=== PATIENT | male | born 1980 | race Caucasian/White ===

== ENCOUNTER 2018-08-10 18:02 | Inpatient (IN) | payer OTHER ==
[2018-08-10] MEDS ORDERED: Aspirin 325 mg Enteric Coated Tablet PO SCH (19:00)
[2018-08-10] MEDS ORDERED: Communication Order-Pharmacy FS SCH (19:00)
[2018-08-10] MEDS ORDERED: Potassium Chloride 20 MEQ TAB PO SCH (19:15)
--- NOTE | 2018-08-10 20:12 | PDOC.PN ---
- Subjective Encounter Start Date: 08/10/18 Encounter Start Time: 20:07 Patient was lying in bed with family earlier, he reported feeling better and back to his baseline. Workup was unremarkable and he had no events over night. EEG and MRI normal, he was given a prescription for increased dose of atorvastatin and clonidine for better BP control and he was discharged home to get a follow up echo as outpatient as this was ordered on admission, but not completed. Prior to being discharged he was able to get an echo before he left. Ultimately, his echo was abnormal and Dr Acosta recommended patient be readmitted for further management. - Objective MAR Reviewed: Yes Vital Signs & Weight: Vital Signs (12 hours) Temp Pulse Resp BP Pulse Ox 08/10/18 19:18 98.5 F 75 12 192/106 H 96 Radiology Reviewed by me: Yes Phys Exam - Physical Examination Constitutional: NAD HEENT: moist MMs, oral pharynx no lesions Neck: no nodes, full ROM Respiratory: no wheezing, clear to auscultation bilateral Cardiovascular: RRR, no significant murmur Gastrointestinal: soft, positive bowel sounds Musculoskeletal: no edema, pulses present Neurological: non-focal, moves all 4 limbs Lymphatic: no nodes Psychiatric: normal affect, A&O x 3 Skin: cap refill <2 seconds Dx/Plan (1) Systolic dysfunction Code(s): I51.9 - HEART DISEASE, UNSPECIFIED Status: Acute (2) Syncope Code(s): R55 - SYNCOPE AND COLLAPSE Status: Acute (3) HTN (hypertension) Code(s): I10 - ESSENTIAL (PRIMARY) HYPERTENSION Status: Acute (4) HLD (hyperlipidemia) Code(s): E78.5 - HYPERLIPIDEMIA, UNSPECIFIED Status: Acute (5) DM type 2 (diabetes mellitus, type 2) Status: Acute - Plan cont current plan of care, plan discussed w/ family, DVT proph w/lovenox * Patient discharged, but called back to be readmitted due to echo results. Please see recent visit for H&P, ECHO and other diagnostic imaging * Echo showed reduced EF, Dr acosta recommended heart cath planned for 08/11 * Monitor BP and other vitals, continue current regimen and add PRN antihypertensives * Dr Acosta, Cardiology consulted and appreciate recommendations * Monitor Accucheks and continue on sliding scale * Transition to inpatient
[2018-08-10] MEDS ORDERED: cloNIDine 0.1 MG TAB PO PRN (20:14)
[2018-08-10] MEDS ORDERED: Dextrose 50% Abboject 50 ML SYRINGE SLOW IVP PRN (20:16)
[2018-08-10] MEDS ORDERED: Dextrose 5% in Water 1,000 ML IV PRN (20:16)
[2018-08-10] MEDS ORDERED: Labetalol HCl 100 MG/20 ML VIAL SLOW IVP PRN (20:17)
[2018-08-10] MEDS ORDERED: hydrALAZINE 20 MG/ML VIAL SLOW IVP PRN (20:17)
[2018-08-10] MEDS ORDERED: Ondansetron PF 4 MG/2 ML Vial IVP PRN (20:20)
[2018-08-10] MEDS ORDERED: Acetaminophen 325 MG TAB PO PRN (20:20)
[2018-08-10] MEDS ORDERED: Ondansetron ODT 4 MG TAB PO PRN (20:20)
[2018-08-10] MEDS ORDERED: Atorvastatin Calcium 40 MG TAB PO SCH ×2 (21:00)
[2018-08-10] MEDS: Losartan 25 MG TAB PO SCH (21:21)
[2018-08-10] MEDS: HumaLOG 300 UNITS/3 ML VIAL SC PRN (21:24)
[2018-08-11 00:17] VITALS: BMI 33.0
--- NOTE | 2018-08-11 01:32 | CON ---
DATE OF CONSULTATION: 08/10/2018 REASON FOR CONSULTATION: Abnormal echocardiogram, syncope. HISTORY OF PRESENT ILLNESS: Mr. Rose is a 38-year-old man. He was at work yesterday. He was talking with a co-worker. He is leaning up against a wall with one hand. He felt totally fine, that is the last thing he remembers. Does not remember feeling lightheaded or dizzy at all. He lost consciousness. An ambulance was called and the patient regained consciousness in the ambulance. The patient states he has never had an episode like that before. He has been having some chest pain and some left lateral pain and some pain in the right side of his chest, nothing typical of angina. Also feels occasional pressure in his chest, but does not really sound typical of angina. The patient has had type 2 diabetes for about 10 years. He smokes, he is back from several packs a day down to half pack a day. He has history of hypercholesterolemia. History of hypertension. Family history of heart disease as well. MEDICATIONS: At home, 1. He is taking atorvastatin apparently 20 mg a day. 2. He is taking losartan 100 mg a day. 3. He is taking medication for diabetes, Victoza. 4. Metformin. 5. Previously was on lisinopril-hydrochlorothiazide. SOCIAL HISTORY: As mentioned, he is down to smoking half pack of cigarettes a day. FAMILY HISTORY: Mother had stenting and then coronary artery disease. REVIEW OF SYSTEMS: CONSTITUTIONAL: No significant weight gain or loss. VISION: No changes. HEARING: No changes. PULMONARY: No cough or wheezing. GASTROINTESTINAL: No nausea, vomiting, or diarrhea. SKIN: No rashes. NEUROLOGIC: No unilateral weakness or numbness. PSYCHIATRIC: No unusual depression or anxiety. PHYSICAL EXAMINATION: GENERAL: This is a large built gentleman. The weights are not currently in the chart. He is alert and oriented. No complaints. HEENT: Eyes, sclerae are nonicteric. Mouth, mucous membranes moist. NECK: Supple. No lymphadenopathy. LUNGS: Clear. No wheezing, rales, or rhonchi. CARDIAC: Normal S1, normal S2. There is no murmur, rub, or gallop. ABDOMEN: Obese and nontender. No hepatosplenomegaly. EXTREMITIES: Warm and dry. No clubbing or cyanosis. No edema. He has good dorsalis pedis pulses bilaterally. LABORATORY DATA AND DIAGNOSTIC STUDIES: Recent laboratory; his most recent potassium is 3.4. The LDL cholesterol could not be calculated, but the total cholesterol is 227, triglycerides 456 even on statins. Echocardiogram showed an ejection fraction 25% to 30% with moderate global left ventricular hypertrophy, mildly dilated left ventricle. ASSESSMENT: 1. Syncopal episode, very suspicious for an arrhythmia. 2. Depressed left ventricular function with ejection fraction 25% to 30%. 3. Diabetes. 4. Hypertension. 5. I strongly suspect the dysrhythmia causes syncopal episode. Also, strong risk factors for coronary artery disease. Also, he has very high cholesterol even on statin, probably has familial hypercholesterolemia. PLAN: 1. Aspirin. 2. Continue angiotensin receptor sarina. 3. Increase statins. 4. Proceed to cardiac catheterization tomorrow. Discussed risks of stroke, heart attack, iodine allergy, interfering with blood supply to leg or kidney, stent thrombosis, stent restenosis. He understands and wishes to proceed. 5. Will need electrophysiologic consultation and may need a LifeVest. 6. 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 Job ID: [id number]
[2018-08-11 05:33] LABS: #Basophils 0.1 thou/uL (0.0-0.2); #Eosinphils 0.3 thou/uL (0.0-0.7); #Lymphocytes 3.2 thou/uL (1.20-3.40); #Monocytes 0.7 thou/uL (0.11-0.59); #Neutrophils 3.9 thou/uL (1.40-6.50); %Eosinophils 3.2 % (0.0-10.0); %Lymphocytes 39.3 % (21.0-51.0); %Monocytes 8.7 % (0.0-10.0); %Neutrophils 47.8 % (42.0-75.0); Hemoglobin 16.1 g/dL (14.0-18.0); Mean Corpuscular HGB CONC 33.7 g/dL (32.0-36.0); Mean Corpuscular Hemoglobin 29.4 pg (27.0-31.0); Mean Corpuscular Volume 87.4 fL (78.0-98.0); Mean Platelet Volume 8.7 fL (7.4-10.4); Platelet Count 206 thou/uL (130-400); RBC Distribution Width 11.9 % (11.5-14.5); Red Blood Cell (RBC) Count 5.49 mill/uL (4.70-6.10); White Blood Cell (WBC) Count 8.1 thou/uL (4.8-10.8)
[2018-08-11 05:50] LABS: Anion Gap 12 mmol/L (10-20); BUN (Urea Nitrogen) 12 mg/dL (8.9-20.6); Calc. Creatinine Clearance 194 mL/min (70-130); Calcium 9.4 mg/dL (7.8-10.44); Carbon Dioxide 28 mmol/L (22-29); Chloride 101 mmol/L (98-107); Estimated GFR-MDRD Greater than 90; Glucose 268 mg/dL (70-105); Potassium 3.4 mmol/L (3.5-5.1); Sodium 138 mmol/L (136-145)
[2018-08-11] MEDS: Amlodipine 10 MG TAB PO SCH (05:53)
[2018-08-11] MEDS: Aspirin 325 mg Enteric Coated Tablet PO SCH (05:54)
[2018-08-11] MEDS ORDERED: Diazepam 5 MG TAB PO SCH (06:00)
[2018-08-11] MEDS: HumaLOG 300 UNITS/3 ML VIAL SC PRN ×4 (06:06→20:52)
[2018-08-11] MEDS ORDERED: Lidocaine 1% (PF) 30 ML VIAL ONE (06:45)
[2018-08-11] MEDS ORDERED: Midazolam HCl 2 mg/2 ml Vial ONE (07:18)
[2018-08-11] MEDS ORDERED: Fentanyl 100 MCG/2 ML VIAL ONE (07:18)
[2018-08-11] MEDS ORDERED: Metoprolol Tartrate 5 MG/5 ML VIAL ONE ×3 (07:33→07:53)
[2018-08-11] MEDS ORDERED: Nitroglycerin 100MG/250ML BOT 250 ML ONE (07:39)
[2018-08-11] MEDS ORDERED: Carvedilol 6.25 MG TAB PO SCH ×4 (08:00→17:00)
[2018-08-11] MEDS ORDERED: hydrALAZINE 20 MG/ML VIAL ONE ×2 (08:03→08:20)
[2018-08-11] MEDS ORDERED: Acetaminophen/Codeine 30-300mg Tablet PO PRN ×2 (08:11)
[2018-08-11] MEDS ORDERED: Sodium Chloride 0.9% 200 ML IV PRN (08:11)
[2018-08-11] MEDS ORDERED: Nitroglycerin 0.4 MG TAB (25 Tab Bottle) SL PRN (08:11)
[2018-08-11] MEDS ORDERED: Enoxaparin Sodium 40 MG/0.4 ML SYRINGE SC SCH (09:00)
[2018-08-11] MEDS ORDERED: Losartan 25 MG TAB PO SCH (09:00)
--- NOTE | 2018-08-11 11:40 | PDOC.PN ---
- Subjective Encounter Start Date: 08/11/18 Encounter Start Time: 11:38 Mr. Rose was seen today in follow-up of syncopal episode. He does not complain of chest pain or dyspnea. He is tired of laying on his back ( he is post cath). - Objective Resuscitation Status - Order Detail: 08/10/18 20:20 Resuscitation Status Routine Co-Sign Provider: Resuscitation Status: FULL: Full Resuscitation MAR Reviewed: Yes Vital Signs & Weight: Vital Signs (12 hours) Temp Pulse Resp BP BP Pulse Ox 08/11/18 09:19 153/82 H 08/11/18 09:18 96 08/11/18 05:53 79 185/98 H 08/11/18 04:12 98.3 F 80 16 172/95 H 96 08/11/18 03:10 77 181/96 H 08/11/18 00:15 192/104 H 08/10/18 23:46 98.4 F 82 16 192/104 H 98 Weight Weight 237 lb 3.2 oz Result Diagrams: 08/11/18 05:12 08/11/18 05:12 Additional Labs: Accuchecks 08/11/18 08/11/18 08/10/18 10:45 06:06 20:45 POC Glucose 258 H 265 H 329 H Phys Exam - Physical Examination HEENT: PERRLA Respiratory: no wheezing, no rales, no rhonchi, clear to auscultation bilateral Cardiovascular: RRR, no significant murmur, no rub Gastrointestinal: soft, non-tender, no distention, positive bowel sounds Musculoskeletal: no edema, pulses present Dx/Plan (1) Systolic dysfunction Code(s): I51.9 - HEART DISEASE, UNSPECIFIED Status: Acute (2) DM type 2 (diabetes mellitus, type 2) Status: Chronic (3) HLD (hyperlipidemia) Code(s): E78.5 - HYPERLIPIDEMIA, UNSPECIFIED Status: Chronic (4) HTN (hypertension) Code(s): I10 - ESSENTIAL (PRIMARY) HYPERTENSION Status: Chronic (5) Syncope Code(s): R55 - SYNCOPE AND COLLAPSE Status: Acute - Plan * Syncope- patient had cardiac cath today, and the plan is for EP evaluation * HTN- blood pressure is a bit elevated- he has been re-started on Amlodipine, and carvediolol. He is also on Losartan * Systolic heart failure- continue ARB, and plan is for EP evaluation * DM- continue SSI for now, re-start Metformin in a few days post cath * Hypokalemia- replace potassium
[2018-08-11] MEDS ORDERED: Potassium Chloride 20 MEQ TAB PO SCH (11:45)
[2018-08-11] MEDS ORDERED: Iopamidol 370 76% 100 ML VIAL ONE (12:57)
[2018-08-11] MEDS ORDERED: Carvedilol 25 MG TAB PO SCH (17:45)
[2018-08-11] MEDS: Losartan 25 MG TAB PO SCH (20:51)
[2018-08-11] MEDS: Rosuvastatin 20 MG TAB PO SCH (20:51)
[2018-08-12 05:32] LABS: #Basophils 0.1 thou/uL (0.0-0.2); #Eosinphils 0.2 thou/uL (0.0-0.7); #Lymphocytes 3.2 thou/uL (1.20-3.40); #Monocytes 0.7 thou/uL (0.11-0.59); #Neutrophils 3.4 thou/uL (1.40-6.50); %Basophils 1.1 % (0.0-1.0); %Eosinophils 3.1 % (0.0-10.0); %Lymphocytes 42.3 % (21.0-51.0); %Monocytes 8.7 % (0.0-10.0); %Neutrophils 44.8 % (42.0-75.0); Mean Corpuscular HGB CONC 33.6 g/dL (32.0-36.0); Mean Corpuscular Hemoglobin 29.4 pg (27.0-31.0); Mean Corpuscular Volume 87.6 fL (78.0-98.0); Mean Platelet Volume 8.7 fL (7.4-10.4); Platelet Count 174 thou/uL (130-400); RBC Distribution Width 11.7 % (11.5-14.5); Red Blood Cell (RBC) Count 5.08 mill/uL (4.70-6.10); White Blood Cell (WBC) Count 7.5 thou/uL (4.8-10.8)
[2018-08-12 05:52] LABS: Anion Gap 12 mmol/L (10-20); BUN (Urea Nitrogen) 10 mg/dL (8.9-20.6); Calc. Creatinine Clearance 216 mL/min (70-130); Calcium 8.3 mg/dL (7.8-10.44); Carbon Dioxide 22 mmol/L (22-29); Chloride 102 mmol/L (98-107); Estimated GFR-MDRD Greater than 90; Glucose 221 mg/dL (70-105); Potassium 3.7 mmol/L (3.5-5.1); Sodium 132 mmol/L (136-145)
[2018-08-12] MEDS: HumaLOG 300 UNITS/3 ML VIAL SC PRN ×2 (06:42→20:41)
[2018-08-12] MEDS: Amlodipine 10 MG TAB PO SCH (08:25)
[2018-08-12] MEDS: Carvedilol 25 MG TAB PO SCH ×2 (08:26→17:46)
[2018-08-12] MEDS: Ezetimibe 10 MG TAB PO SCH (08:26)
[2018-08-12] MEDS: Aspirin 325 mg Enteric Coated Tablet PO SCH (08:28)
[2018-08-12] MEDS ORDERED: PROPOFOL 200 MG/20 ML VIAL ONE (11:01)
[2018-08-12] MEDS ORDERED: Lidocaine 1% (PF) 30 ML VIAL ONE (13:39)
[2018-08-12] MEDS ORDERED: Propofol 500 MG/50 ML VIAL ONE ×2 (14:36→15:44)
[2018-08-12] MEDS ORDERED: Ketamine 50 MG/ML (10ML VIAL) ONE (15:01)
[2018-08-12] MEDS ORDERED: Midazolam HCl 2 mg/2 ml Vial ONE (15:01)
[2018-08-12] MEDS ORDERED: Famotidine/PF 20 mg/2ml Vial ONE (15:01)
[2018-08-12] MEDS ORDERED: Fentanyl 100 MCG/2 ML VIAL ONE (15:01)
[2018-08-12] MEDS ORDERED: PROPOFOL 40 ML ONE (15:12)
[2018-08-12] MEDS ORDERED: Isoproterenol 0.2 MG/1 ML AMP ONE (15:35)
--- NOTE | 2018-08-12 16:21 | CON ---
DATE OF CONSULTATION: 08/11/2018 REASON FOR CONSULTATION: Syncope and cardiomyopathy. HISTORY OF PRESENT ILLNESS: Mr. Rose is a 38-year-old gentleman, who was at work on the speaking with a co-worker. He was leaning against a wall with one hand feeling well and the last thing he remembers. He had no prodrome before he completely lost consciousness. An ambulance was called and he regained consciousness in the ambulance. This is the first time he has ever had an episode like this in the past. He reported some chest pain symptoms that were mostly atypical, but he did undergo left heart catheterization with Dr. Guardado on the , which showed severely reduced ejection fraction of 30%. There is 60% to 70% disease in the mid LAD. There is distal disease in the RCA and the circumflex, and medical management was recommended. Given his history of syncope and his newly diagnosed cardiomyopathy, EP consultation is requested. Mr. Rose is currently feeling well. He denies any recurrent syncopal episodes. He has not had any heart racing, palpitations, chest pain, pressure, shortness of breath, increasing fatigue, or weakness. He feels that he is generally in good health other than type 2 diabetes and fairly heavy cigarette smoking. PAST MEDICAL HISTORY: 1. Type 2 diabetes diagnosed in approximately 2009, continued tobacco habituation, currently half pack a day, but previously multiple packs a day. 2. Hypercholesterolemia. 3. Hypertension. FAMILY HISTORY: Coronary artery disease. Negative for sudden cardiac . SOCIAL HISTORY: with children. Currently smokes half a pack a day. REVIEW OF SYSTEMS: A 12-point review of systems was negative except that listed above in the HPI. HOME MEDICATIONS: 1. Metformin 500 mg p.o. b.i.d. 2. Catapres 0.1 mg q.4 hours p.r.n. hypertension. 3. Multivitamin daily. 4. Cozaar 100 mg daily. 5. Lipofen 50 mg at bedtime. 6. Trulicity 0.75 mg weekly. 7. Lipitor 40 mg at bedtime. 8. Amlodipine 10 mg at bedtime. PHYSICAL EXAMINATION: VITAL SIGNS: Temperature 98.3, pulse 79, blood pressure 185/98, respirations 16, and oxygen is 96% on room air. GENERAL: The patient is alert and oriented. Speech is clear. Affect is appropriate. Normocephalic and atraumatic. Sclerae are anicteric. EOMs are intact. Oral mucosa is moist and pink with adequate dentition. NECK: Supple without jugular venous distention. HEART: Rate is irregularly irregular with crisp S1 and S2. PMI is faintly palpable. Respirations are even and unlabored. LUNGS: Clear to auscultation bilaterally. No wheezes, crackles, or rhonchi appreciated. ABDOMEN: Obese, soft, and nontender without palpable masses. Hepatojugular reflux is negative. EXTREMITIES: Warm and dry to touch without clubbing, cyanosis, or edema. NEUROLOGIC: Grossly intact and nonfocal. Gait was not assessed. DATABASE: Left heart catheterization on 08/10/2018 showed severely reduced ejection fraction of 30%, and 60% to 70% disease in the mid LAD. Recommended medical management only. Hematology; unremarkable. Chemistry; potassium 3.4, creatinine 0.8, otherwise unremarkable. Telemetry and EKGs reveal normal sinus rhythm. IMPRESSION: 1. Syncope and collapse. 2. Cardiomyopathy, newly diagnosed. 3. Obesity. 4. Hypertension. 5. Tobacco habituation. 6. Type 2 diabetes. PLAN AND RECOMMENDATIONS: Long discussion has had with Mr. Rose and his regarding his recent events. His syncopal episode is extremely concerning given his newly diagnosed cardiomyopathy. My concern is for ventricular tachycardia. For this, my recommendation is to undergo electrophysiology study and check his inducibility for ventricular arrhythmias. If he is inducible, recommend proceeding with an ICD implant. If not inducible during EP study, recommend LifeVest and medical management of his cardiomyopathy for at least 3 months with re-evaluation of his ejection fraction after 3 months of optimal medical management. If his ejection fraction remains severely depressed at that time, ICD could be considered then. We discussed risks, benefits, and alternatives to electrophysiology study in addition to ICD implant. The patient voices understanding and is in agreement with the plan of care. We will keep him n.p.o. after midnight and plan on doing this tomorrow afternoon. All questions have been answered. Thank you for allowing me to participate in the care of this patient. Job ID: [id number]
--- NOTE | 2018-08-12 17:38 | PDOC.PN ---
- Subjective Encounter Start Date: 08/12/18 Encounter Start Time: 17:36 Mr. Rose was seen today in follow-up of syncope. He does not have any complaints. He will go down today for EP study. - Objective Resuscitation Status - Order Detail: 08/10/18 20:20 Resuscitation Status Routine Co-Sign Provider: Resuscitation Status: FULL: Full Resuscitation MAR Reviewed: Yes Vital Signs & Weight: Vital Signs (12 hours) Temp Pulse Resp BP BP Pulse Ox 08/12/18 16:40 96.3 F L 74 20 147/86 H 92 L 08/12/18 12:44 82 16 151/90 H 08/12/18 11:37 96.8 F L 79 20 174/102 H 96 08/12/18 10:46 98 08/12/18 08:25 75 08/12/18 08:00 98 08/12/18 07:48 97.5 F L 75 20 168/99 H 96 Weight Weight 237 lb 3.2 oz I&O: 08/11/18 08/12/18 08/13/18 06:59 06:59 06:59 Intake Total 900 Output Total 400 Balance 500 Result Diagrams: 08/12/18 05:16 08/12/18 05:16 Additional Labs: Accuchecks 08/12/18 08/12/18 08/12/18 16:40 10:37 05:59 POC Glucose 141 H 203 H 223 H 08/11/18 19:35 POC Glucose 226 H Phys Exam - Physical Examination HEENT: PERRLA Respiratory: no wheezing, no rales, no rhonchi, clear to auscultation bilateral Cardiovascular: RRR, no significant murmur, no rub Gastrointestinal: soft, non-tender, no distention, positive bowel sounds Musculoskeletal: no edema, pulses present Dx/Plan (1) Systolic dysfunction Code(s): I51.9 - HEART DISEASE, UNSPECIFIED Status: Acute (2) DM type 2 (diabetes mellitus, type 2) Status: Chronic (3) HLD (hyperlipidemia) Code(s): E78.5 - HYPERLIPIDEMIA, UNSPECIFIED Status: Chronic (4) HTN (hypertension) Code(s): I10 - ESSENTIAL (PRIMARY) HYPERTENSION Status: Chronic (5) Syncope Code(s): R55 - SYNCOPE AND COLLAPSE Status: Acute - Plan * syncope- for EP study today * Acute systolic heart failure- compensated * HTN- blood pressure is still a bit labile- this can be further managed as an outpatient * DM- blood glucose is stable.
--- NOTE | 2018-08-12 18:26 | PRG ---
DATE OF SERVICE: 08/12/2018 SUBJECTIVE: Mr. Rose underwent electrophysiologic testing. He was noninducible. He is doing well currently. OBJECTIVE: VITAL SIGNS: Blood pressure is actually the lowest I have seen, 120 systolic; earlier, it was 150/90. Pulse is 70. LUNGS: Clear. CARDIAC: Normal S1, normal S2. ABDOMEN: Soft and nontender. EXTREMITIES: No edema. ASSESSMENT: 1. Syncopal episode of uncertain etiology, occurred suddenly. 2. Hypertension. 3. Diabetes. 4. History of smoking. 5. History of mixed hyperlipidemia, uncontrolled. 6. I suspect he may have familial hypercholesterolemia. PLAN: 1. He is currently on aspirin 325 mg a day. 2. We will add Plavix currently. 3. Lisinopril 20 mg twice a day. 4. Carvedilol 25 mg twice a day. 5. Amlodipine 10 mg a day. 6. Crestor 40 mg a day. 7. Zetia 10 mg a day. I would recommend the patient be seen in the office. He has a 60% to 70% mid LAD lesion. I would recommend an outpatient stress test to be done with [employer] [facility]iol[facility], consideration for about 4 to 6 weeks or within at least next couple of months. If he does have ischemia in that distribution of LAD, that area could be stented, but it looked very borderline; therefore, no intervention was done yesterday. Also, we were pending electrophysiologic evaluation. The patient will go home with a LifeVest. It is still uncertain what caused his syncopal episode. The LifeVest is in place due to the ejection fraction being below 35%. It was 25% to 30% on echo, and 30% on catheterization. Job ID: [id number]
--- NOTE | 2018-08-12 18:48 | OP ---
DATE OF PROCEDURE: 08/12/2018 PROCEDURE PERFORMED: Electrophysiology study. REASON FOR PROCEDURE: Mr. Rose is a 38-year-old male with no prior history, presenting with syncopal spell, found to have nonischemic cardiomyopathy with LVEF of 25% to 30%, here for EP study to evaluate inducibility for arrhythmias and conduction system sinus node function. DESCRIPTION OF PROCEDURE: The patient received deep sedation by Anesthesia specialist. After adequate level of sedation achieved, the left femoral venous area was prepped, draped, and anesthetized using subcutaneous lidocaine, and an 8-[place] short sheath was introduced. Through this, a decapolar catheter was advanced to the right atrium, right ventricle, His bundle position. Pacing mapping and recording were performed at each location. Following findings were noted: Baseline rhythm was sinus rhythm with sinus cycle length 173 milliseconds. The AH was 155, HV [address] was 196 milliseconds, QRS was about 80 milliseconds. The sinus node recovery time was 1263, corrected sinus node recovery time was 480 milliseconds. AV Wenckebach cycle length was 370 milliseconds, retrograde Wenckebach cycle length was 560 milliseconds. Concentric retrograde VA conduction was seen. Dual AV floyd physiology was not noted. During AV floyd, ERP test with single atrial extrastimuli. AV floyd ERP was at 600/300 milliseconds. Burst atrial pacing induced short atrial flutter, which was self-terminated. The cycle length was 243 milliseconds. Ventricular access to my testing was performed at this point from 2 different locations in right ventricle, on and off Isuprel. 600 milliseconds and [address] were used with up to 3 ventricular extrastimuli, which were decremented to the refractory period. We were not able to induce any sustained ventricular tachycardia. At the end of the case, the cardiac silhouette did not change. The patient tolerated the procedure well. Catheters and sheaths were removed in the animal laboratory technician. CONCLUSION: 1. No inducible ventricular tachycardia. 2. Borderline sinus node function. 3. Normal AV floyd and His bundle function. 4. Nonsustained atrial flutter is seen. PLAN: LifeVest for 3 months to reassess LV function for consideration for primary prophylactic ICD implant at that time. Job ID: [id number]
[2018-08-12] MEDS: Lisinopril 20 MG TAB PO SCH (20:40)
[2018-08-12] MEDS: Rosuvastatin 20 MG TAB PO SCH (20:41)
[2018-08-13] MEDS: HumaLOG 300 UNITS/3 ML VIAL SC PRN ×2 (06:06→11:21)
[2018-08-13] MEDS: Ezetimibe 10 MG TAB PO SCH (08:35)
[2018-08-13] MEDS: Aspirin 325 mg Enteric Coated Tablet PO SCH (08:35)
[2018-08-13] MEDS: Amlodipine 10 MG TAB PO SCH (08:35)
[2018-08-13] MEDS: Carvedilol 25 MG TAB PO SCH ×2 (08:35→17:07)
[2018-08-13] MEDS: Lisinopril 20 MG TAB PO SCH (08:35)
[2018-08-13] MEDS ORDERED: Clopidogrel Bisulfate 300 MG TAB PO SCH (09:00)
--- NOTE | 2018-08-13 10:11 | PDOC.PN ---
- Subjective Encounter Start Date: 08/13/18 Encounter Start Time: 10:10 Mr. Rose was seen today in follow-up of syncope. He does not have any complaints. He wants to go home. - Objective Resuscitation Status - Order Detail: 08/10/18 20:20 Resuscitation Status Routine Co-Sign Provider: Resuscitation Status: FULL: Full Resuscitation MAR Reviewed: Yes Vital Signs & Weight: Vital Signs (12 hours) Temp Pulse Resp BP BP Pulse Ox 08/13/18 08:35 79 137/74 08/13/18 08:30 95 08/13/18 07:10 95 08/13/18 07:09 97.9 F 79 15 137/74 95 08/13/18 04:00 98.2 F 72 16 148/71 H 95 08/13/18 00:00 98.1 F 80 16 149/89 H 96 Weight Weight 237 lb 3.2 oz I&O: 08/12/18 08/13/18 08/14/18 06:59 06:59 06:59 Intake Total 900 240 Output Total 400 Balance 500 240 Result Diagrams: 08/12/18 05:16 08/12/18 05:16 Additional Labs: Accuchecks 08/13/18 08/12/18 08/12/18 05:35 19:28 16:40 POC Glucose 274 H 266 H 141 H 08/12/18 10:37 POC Glucose 203 H Phys Exam - Physical Examination HEENT: PERRLA Respiratory: no wheezing, no rales, no rhonchi, clear to auscultation bilateral Cardiovascular: RRR, no significant murmur, no rub Gastrointestinal: soft, non-tender, no distention, positive bowel sounds Musculoskeletal: no edema Dx/Plan (1) Systolic dysfunction Code(s): I51.9 - HEART DISEASE, UNSPECIFIED Status: Acute (2) DM type 2 (diabetes mellitus, type 2) Status: Chronic (3) HLD (hyperlipidemia) Code(s): E78.5 - HYPERLIPIDEMIA, UNSPECIFIED Status: Chronic (4) HTN (hypertension) Code(s): I10 - ESSENTIAL (PRIMARY) HYPERTENSION Status: Chronic (5) Syncope Code(s): R55 - SYNCOPE AND COLLAPSE Status: Acute - Plan * Syncope- thought to be due to an arrhythmia- patient will have a life vest placed * Systolic heart failure- continue Losartan and carvediolol * HTN- blood pressure is better * DM- blood pressure is stable * Paperwork for short term disability completed * Stable for discharge home once life vest delivered..
--- NOTE | 2018-08-13 14:21 | PDOC.CTH ---
Cardiology Progress Note - Subjective No new issues. - Objective Vital Signs Temp Pulse Resp BP BP BP Pulse Ox 08/13/18 11:33 97.6 F 75 16 141/72 H 96 08/13/18 08:35 79 137/74 08/13/18 08:30 95 08/13/18 07:10 95 08/13/18 07:09 97.9 F 79 15 137/74 95 08/13/18 04:00 98.2 F 72 16 148/71 H 95 Weight 237 lb 3.2 oz 08/12/18 08/13/18 08/14/18 06:59 06:59 06:59 Intake Total 900 240 Output Total 400 Balance 500 240 - Physical Examination General/Neuro: alert & oriented x3, NAD Neck: no JVD present Lungs: unlabored respirations Heart: RRR Abdomen: NT/ND Extremities: other: (no edema) - Telemetry Telemetry Rhythm: nsr - Labs Result Diagrams: 08/12/18 05:16 08/12/18 05:16 - Assessment/Plan 1. Syncope of unknwon etriology 2. HTN 3. DMT2 4. Dilated CM EF at 30% PLAN: - Continue current medical therapy. - Home after lifevest set up complete.
[2018-08-13 15:26] VITALS: BP 145/81; TEMP 98.1
--- NOTE | 2018-08-14 02:19 | DIS ---
DATE OF ADMISSION: 08/10/2018 DATE OF DISCHARGE: 08/13/2018 DISCHARGE DISPOSITION: Home. DISCHARGE DIAGNOSES: 1. Syncope. 2. Acute systolic heart failure. 3. Hypertension. 4. Diabetes mellitus type 2. 5. Obesity. DISCHARGE MEDICATIONS: 1. Lisinopril 20 mg twice daily. 2. Plavix 75 mg daily. 3. Clonidine 0.1 mg q.4 as needed for elevated blood pressure. 4. Carvedilol 25 mg twice daily. 5. Lipitor 40 mg at bedtime. 6. Metformin 500 mg twice a day. 7. Fenofibrate 50 mg at bedtime. 8. Trulicity 0.75 mg every 7 days. 9. Amlodipine 10 mg at bedtime. PROCEDURES DONE DURING THE ADMISSION: The patient had a cardiac catheterization demonstrating an EF of about 30%. There was mid 60% to 70% LAD stenosis and some distal disease in the circumflex artery as well as the right coronary artery. The patient also had an echocardiogram in which the ejection fraction was estimated at 25% to 30%. There was concentric left ventricular hypertrophy and structurally normal aortic valve without any stenosis or regurgitation. CODE STATUS: Full code. ALLERGIES: LATEX AND NATURAL RUBBER. HOSPITAL COURSE: Mr. Rose is a pleasant 38-year-old gentleman who presented to the emergency room after suffering a syncopal episode at work. He was evaluated and had an echocardiogram which demonstrated a significantly low ejection fraction. For this reason, Cardiology was consulted and he underwent cardiac catheterization. He was found to have some left anterior descending artery disease, but not so flow limiting that it required intervention. However, it is concerning that the syncopal episode could have been due to an arrhythmia given his low ejection fraction. For this reason, he underwent evaluation by Electrophysiology and there was no evidence of any inducible arrhythmia. However, it is recommended that he do go home with a LifeVest and have a re-evaluation of his ejection fraction in approximately 3 months. He has been placed on carvedilol and losartan was changed to lisinopril and he is being discharged home with a LifeVest and to have close outpatient followup. Job ID: [id number]
[2018-08-14] MEDS ORDERED: Clopidogrel Bisulfate 75 MG TAB PO SCH (09:00)
--- NOTE | 2018-08-15 05:28 | PQF ---
[facility] Crystal Reports Winform Viewer OBEY KEENAN TONI MD [id number] [address] [place] [address] [id number] CLINICAL DOCUMENTATION CLARIFICATION FORM: POST DISCHARGE Addendum to original discharge summary date: ____ Late entry note date: __ DATE: 08-15-18 ATTN:Corby Velazquez Please exercise your independent, professional judgment in responding to the clarification form. Clinical indicators are provided on the bottom of this form for your review Based on your clinical knowledge kindly identify the etiology of syncope. Please check appropriate box(s): Syncope Due to: [ ] Atrial Flutter [ ] Acute Systolic CHF [ X ] Unknown Etiology [ ] Other diagnosis please specify: [ ] Unable to determine In addition, please specify: Present on Admission (POA): [ X ] Yes [ ] No [ ] Unable to determine For continuity of documentation, please document condition throughout progress notes and discharge summary. Thank You. CLINICAL INDICATORS: Hospitalist PN 08/[address] Lofton called back to be readmitted due to echo results Consult 08/[address] Guardado depressed left ventricu;ar function with ejection fraction 25% to 30% PN 08/12 Dr. Clotilde Guardado He has 60% to 70% mid LAD lesion OP note 08/[address] Galaviz Nonsustained atrial flutter is seen OP note 08/[address] Galaviz No inducible ventricular tachycardia PN 08/[address] Pierce syncope of unknown etiology DS 08/[address] Drake concerning that the syncopal episode could have been due to an arrhythmia given his low ejection fraction RISK FACTORS: DS 08/13 Dr. Drake-Acute Systolic Heart failure DS 08/13 Dr. Drake-Obesity DS 08/13 Dr. Drake-Hypertension OP note 08/12 Dr. Galaviz-atrial flutter TREATMENTS: DS 08/13 Dr. Drake-recommended that he do go home with a LifeVest OP note 08/12 Dr. Galaviz-EP Study [employer] Physician Report 08/10-Cardiac Catheterization APR 20-Clopidogrel 75 mg PO APR 20-Mitroglycerin 0.4 mg SL (This form is maintained as a part of the permanent medical record) 2014 [employer]. All Rights Reserved Renate [email or web address] [not provided] MTDD
[2018-08-17] MEDS ORDERED: Dulaglutide [Trulicity] 0.75 MG SC SCH (09:00)
== END 2018-08-13 18:05 | disposition home or self-care (01) | DRG 273 ==
LOC: 2SE 18:13
PROVIDERS: ADMIT Internal Medicine; ATTEND Internal Medicine
PROC: 4A023N7 Measurement of Cardiac Sampling and Pressure, Left Heart, Percutaneous Approach (ICD-10-PCS; 2018-08-10)
PROC: B2151ZZ Fluoroscopy of Left Heart using Low Osmolar Contrast (ICD-10-PCS; 2018-08-10)
PROC: B2111ZZ Fluoroscopy of Multiple Coronary Arteries using Low Osmolar Contrast (ICD-10-PCS; 2018-08-10)
PROC: 4A023FZ Measurement of Cardiac Rhythm, Percutaneous Approach (ICD-10-PCS; principal; 2018-08-12)
PROC: 4A0234Z Measurement of Cardiac Electrical Activity, Percutaneous Approach (ICD-10-PCS; 2018-08-12)
DX: R55 Syncope and collapse (principal); I50.21 Acute systolic (congestive) heart failure; I48.92 Unspecified atrial flutter; I42.0 Dilated cardiomyopathy; I11.0 Hypertensive heart disease with heart failure; E11.9 Type 2 diabetes mellitus without complications; F17.210 Nicotine dependence, cigarettes, uncomplicated; E78.00 Pure hypercholesterolemia, unspecified; E87.6 Hypokalemia; I25.10 Atherosclerotic heart disease of native coronary artery without angina pectoris; E66.9 Obesity, unspecified; Z91.040 Latex allergy status; Z79.84 Long term (current) use of oral hypoglycemic drugs; Z79.82 Long term (current) use of aspirin; Z79.899 Other long term (current) drug therapy; Z68.33 Body mass index [BMI] 33.0-33.9, adult
CPT/HCPCS: 36415; 36416; 70450; 70551; 71045; 71275; 76942; 80048; 80053; 80061; 80306; 82550; 83036; 83690; 83735; 84146; 84439; 84443; 84484; 85025; 93005; 93306; 93458; 93609; 93621; 93623; 93798; 93880; 93970; 94760; 95816; 95819; 96365; 96368; 96372; 96375; 99152; 99153; C1769; G0378; J0360; J1644; J1650; J2001; J2250; J2704; J2765; J3010; J3475; Q9966; Q9967; S0028

== ENCOUNTER 2019-09-05 09:50 | Emergency (ER) | payer OTHER ==
[2019-09-05] MEDS ORDERED: Aspirin Chewable 81 MG TAB ONE ×2 (10:25→10:26)
[2019-09-05] MEDS ORDERED: Nitroglycerin 0.4 MG TAB 1 EACH ONE (10:25)
--- NOTE | 2019-09-05 10:55 | RAD ---
EXAM: Chest one view: HISTORY: Chest pain COMPARISON: 08/21/2019 FINDINGS: Heart size: Within normal limits. Lungs: Clear of acute process. No evidence for confluent pneumonia, pleural effusion, acute edema, or pneumothorax, or other signifi cant acute process. IMPRESSION: No significant acute intrathoracic disease.
[2019-09-05 11:54] LABS: ALT (SGPT) 17 U/L (8-55); AST (SGOT) 13 U/L (5-34); Albumin 3.9 g/dL (3.5-5.0); Alkaline Phosphatase 124 U/L (40-110); Anion Gap 13 mmol/L (10-20); BUN (Urea Nitrogen) 11 mg/dL (8.9-20.6); Bilirubin, Total 0.8 mg/dL (0.2-1.2); Calc. Creatinine Clearance 0 mL/min (70-130); Calcium 9.9 mg/dL (7.8-10.44); Carbon Dioxide 25 mmol/L (22-29); Chloride 99 mmol/L (98-107); Estimated GFR-MDRD 88; Glucose 233 mg/dL (70-105); Potassium 3.9 mmol/L (3.5-5.1); Protein, Total 7.9 g/dL (6.0-8.3); Sodium 133 mmol/L (136-145)
[2019-09-05 12:45] LABS: Hemoglobin 16.6 g/dL (14.0-18.0); Mean Corpuscular HGB CONC 34.3 g/dL (32.0-36.0); Mean Corpuscular Hemoglobin 29.2 pg (27.0-31.0); Mean Corpuscular Volume 85.1 fL (78.0-98.0); Mean Platelet Volume 8.3 fL (7.4-10.4); Platelet Count 273 thou/uL (130-400); RBC Distribution Width 12.5 % (11.5-14.5); Red Blood Cell (RBC) Count 5.68 mill/uL (4.70-6.10); White Blood Cell (WBC) Count 12.1 thou/uL (4.8-10.8)
[2019-09-05 12:46] LABS: #Eosinphils 0.4 thou/uL (0.0-0.7); #Lymphocytes 3.8 thou/uL (1.20-3.40); #Monocytes 0.9 thou/uL (0.11-0.59); #Neutrophils 6.9 thou/uL (1.40-6.50); %Basophils 0.4 % (0.0-1.0); %Eosinophils 3.3 % (0.0-10.0); %Lymphocytes 31.7 % (21.0-51.0); %Monocytes 7.1 % (0.0-10.0); %Neutrophils 57.6 % (42.0-75.0)
== END 2019-09-05 13:44 | disposition home or self-care (01) ==
LOC: ERS 09:50
DX: R07.9 Chest pain, unspecified (principal); E11.9 Type 2 diabetes mellitus without complications; I10 Essential (primary) hypertension; E78.00 Pure hypercholesterolemia, unspecified; Z87.891 Personal history of nicotine dependence; Z79.82 Long term (current) use of aspirin; Z79.899 Other long term (current) drug therapy; Z79.84 Long term (current) use of oral hypoglycemic drugs
CPT/HCPCS: 71045; 80053; 84484; 85025

== ENCOUNTER 2019-09-05 18:19 | Inpatient (IN) | payer OTHER ==
[~2019-09-05 18:19] MED LIST: Iopamidol-370 76% 500 ML 1 ML ONE
[2019-09-05 19:11] LABS: #Basophils 0.1 thou/uL (0.0-0.2); #Eosinphils 0.4 thou/uL (0.0-0.7); #Lymphocytes 3.7 thou/uL (1.20-3.40); #Monocytes 0.8 thou/uL (0.11-0.59); #Neutrophils 4.1 thou/uL (1.40-6.50); %Basophils 0.7 % (0.0-1.0); %Monocytes 8.9 % (0.0-10.0); %Neutrophils 45.4 % (42.0-75.0); Hemoglobin 16.2 g/dL (14.0-18.0); Mean Corpuscular HGB CONC 35.3 g/dL (32.0-36.0); Mean Corpuscular Hemoglobin 30.5 pg (27.0-31.0); Mean Corpuscular Volume 86.4 fL (78.0-98.0); Platelet Count 246 thou/uL (130-400); RBC Distribution Width 12.6 % (11.5-14.5); Red Blood Cell (RBC) Count 5.33 mill/uL (4.70-6.10); White Blood Cell (WBC) Count 9.1 thou/uL (4.8-10.8)
[2019-09-05] MEDS ORDERED: Nitroglycerin 2% Ointment 1 INCH/1 GM Packet ONE (19:22)
[2019-09-05] MEDS ORDERED: Acetaminophen 500 MG TAB ONE (19:22)
[2019-09-05 19:43] LABS: ALT (SGPT) 16 U/L (8-55); AST (SGOT) 13 U/L (5-34); Albumin 3.6 g/dL (3.5-5.0); Alkaline Phosphatase 113 U/L (40-110); Anion Gap 14 mmol/L (10-20); BUN (Urea Nitrogen) 13 mg/dL (8.9-20.6); Bilirubin, Total 0.6 mg/dL (0.2-1.2); Calc. Creatinine Clearance 0 mL/min (70-130); Calcium 9.7 mg/dL (7.8-10.44); Carbon Dioxide 24 mmol/L (22-29); Chloride 101 mmol/L (98-107); Estimated GFR-MDRD 76; Globulin 3.7 g/dL (2.4-3.5); Glucose 244 mg/dL (70-105); Potassium 3.6 mmol/L (3.5-5.1); Protein, Total 7.3 g/dL (6.0-8.3); Sodium 135 mmol/L (136-145)
--- NOTE | 2019-09-05 20:10 | CT ---
CT ANGIOGRAM THORAX WITH IV CONTRAST AND 3-D RECONSTRUCTIONS CLINICAL INDICATION: Chest pain COMPARISON: 08/09/2018 FINDINGS: Pulmonary arteries: No filling defects are seen in the pulmonary arteries to suggest a pulmonary embo kathleen. Aorta: The aorta is normal in caliber without evidence of an aortic dissection. Lungs: Clear without evidence of consolidation or pleural effusion. Mediastinum: There is no evidence of lymphadenopathy. Thyroid gland: Grossly normal in appearance where imaged. Osseous structures: No suspicious lytic or sclerotic osseous lesions are identified. Chest wall: No abnormality visualized. Upper abdomen: Within normal limits for phase of imaging. IMPRESSION: 1. No CT evidence of a pulmonary embolus.
[2019-09-05] MEDS ORDERED: Amiodarone 150 MG, Admixture Fee 1 EACH in Dextrose 5% in Water 100 ML IVPB SCH (20:15)
[2019-09-05] MEDS ORDERED: Heparin 25,000 units/D5W 500 ML ONE (20:23)
[2019-09-05] MEDS ORDERED: Heparin 1,000 UNITS/ML VIAL ONE (20:23)
[2019-09-05 20:48] LABS: PTT 29.6 sec (22.9-36.1)
[2019-09-05 20:52] LABS: INR-International Normal Ratio 0.9; Prothrombin Time 11.8 sec (12.0-14.7)
[2019-09-05 22:34] LABS: Troponin I 0.013 ng/mL (< 0.028)
[2019-09-05] MEDS ORDERED: Heparin 25,000 units/D5W 500 ML IV SCH (23:30)
[2019-09-05] MEDS ORDERED: Heparin 10,000 UNITS/ 10 ML VIAL SLOW IVP SCH (23:30)
[2019-09-05 23:37] VITALS: BMI 30.4
[2019-09-05] MEDS ORDERED: Acetaminophen 500 MG TAB PO PRN (23:42)
[2019-09-05] MEDS ORDERED: Nitroglycerin 0.4 MG TAB (25 Tab Bottle) PO PRN (23:42)
[2019-09-05] MEDS ORDERED: Ondansetron PF 4 MG/2 ML Vial IVP PRN (23:42)
[2019-09-05] MEDS ORDERED: Dextrose 50% Abboject 50 ML SYRINGE SLOW IVP PRN (23:42)
[2019-09-05] MEDS ORDERED: Ondansetron ODT 4 MG TAB PO PRN (23:42)
[2019-09-05] MEDS ORDERED: HumaLOG 300 UNITS/3 ML VIAL SC PRN ×2 (23:42)
[2019-09-05] MEDS ORDERED: hydrALAZINE 20 MG/ML VIAL SLOW IVP PRN (23:42)
[2019-09-05] MEDS ORDERED: Dextrose 5% in Water 1,000 ML IV PRN (23:42)
[2019-09-06 01:27] LABS: Troponin I 0.014 ng/mL (< 0.028)
[2019-09-06 03:10] LABS: #Basophils 0.1 thou/uL (0.0-0.2); #Eosinphils 0.3 thou/uL (0.0-0.7); #Lymphocytes 3.5 thou/uL (1.20-3.40); #Monocytes 0.7 thou/uL (0.11-0.59); #Neutrophils 3.9 thou/uL (1.40-6.50); %Eosinophils 3.5 % (0.0-10.0); %Monocytes 8.6 % (0.0-10.0); %Neutrophils 45.9 % (42.0-75.0); Hemoglobin 15.1 g/dL (14.0-18.0); Mean Corpuscular HGB CONC 35.1 g/dL (32.0-36.0); Mean Corpuscular Hemoglobin 30.1 pg (27.0-31.0); Mean Corpuscular Volume 85.7 fL (78.0-98.0); Platelet Count 223 thou/uL (130-400); RBC Distribution Width 12.4 % (11.5-14.5); Red Blood Cell (RBC) Count 5.03 mill/uL (4.70-6.10); White Blood Cell (WBC) Count 8.5 thou/uL (4.8-10.8)
[2019-09-06 03:37] LABS: Chloride 102 mmol/L (98-107); Potassium 3.3 mmol/L (3.5-5.1); Sodium 134 mmol/L (136-145)
[2019-09-06 03:38] LABS: Calcium 8.9 mg/dL (7.8-10.44); Glucose 167 mg/dL (70-105)
[2019-09-06 03:40] LABS: Anion Gap 12 mmol/L (10-20); Carbon Dioxide 23 mmol/L (22-29)
[2019-09-06 03:41] LABS: Calc. Creatinine Clearance 194 mL/min (70-130); Estimated GFR-MDRD Greater than 90
[2019-09-06 03:42] LABS: BUN (Urea Nitrogen) 11 mg/dL (8.9-20.6)
--- NOTE | 2019-09-06 04:20 | HP ---
PRIMARY CARE PROVIDER: Dr. Queenie Camacho with [facility]. PRIMARY PERSONNEL ASSOCIATE: Dr. Jeff Guardado. CHIEF COMPLAINT: Chest pain. HISTORY OF PRESENT ILLNESS: This is a 39-year-old male who presents to [facility] Emergency Department, complaining of substernal chest pain, which began approximately 6:30 a.m. on 09/05/2019. The patient's history is significant for coronary artery disease, status post PCI with drug-eluting stent placement to the left anterior descending on 08/21/2019. The patient was also noted with depressed ejection fraction in the 30% range, confirmed on 2D transthoracic echocardiogram 08/22/2019. The patient was placed on Entresto, aspirin, and Plavix as well as high-intensity statin and discharged home on 08/24/2019. The patient states he has been compliant with his medication regimen, but has noted that his blood glucoses are variable and typically high despite taking oral hypoglycemics. The patient states the chest pain began abruptly in the early childhood coordinator hours as stated previously with associated shortness of breath. The patient took his chronic medication regimen including aspirin and blood pressure regimen; however, due to the pain, presented to the emergency room for evaluation. During his initial evaluation, the patient apparently clinically improved and decided to leave and make a followup outpatient appointment with his mortgage manager. The patient apparently was told to return to the emergency room due to concern for increasing chest pain and angina and potential myocardial infarction. In the emergency room, the patient underwent general evaluation with serial cardiac biomarkers negative x2. The patient was placed on a heparin infusion. The patient presented back with chest pain symptoms, undergoing CT angiogram of the chest. While in the CT scanner, the patient had a syncopal event and apparently had a brief loss of pulse with initiation of CPR less than 1 minute. The patient had return of spontaneous pulse and recovered without complication. The patient was initiated on heparin infusion after discussions with Cardiology on-call. The patient received topical and oral nitroglycerin and was transferred to the intermediate care unit for further evaluation. PAST MEDICAL HISTORY: 1. Coronary artery disease, status post PCI with drug-eluting stent to the left anterior descending, 08/21/2019. 2. Hyperlipidemia. 3. Diabetes mellitus type 2, labile. 4. Hypertension. 5. Ischemic cardiomyopathy with ejection fraction of 30% to 35%. PAST SURGICAL HISTORY: Status post drug-eluting stent to the left anterior descending artery, 08/21/2019. CURRENT MEDICATIONS: 1. Amlodipine 10 mg p.o. at bedtime. 2. Fenofibrate 50 mg p.o. at bedtime. 3. Metformin 500 mg p.o. b.i.d. 4. Multivitamin one tablet p.o. daily. 5. Entresto 49/51 mg one tablet p.o. b.i.d. 6. Enteric-coated aspirin 81 mg p.o. daily. 7. Plavix 75 mg p.o. daily. 8. Coreg 25 mg p.o. b.i.d. 9. Lipitor 80 mg p.o. at bedtime. ALLERGIES: TO LATEX AND NATURAL RUBBER. FAMILY HISTORY: Positive for coronary artery disease. SOCIAL HISTORY: Resides in [place], [place]. Works as a dispatcher. . Former tobacco use, none currently. No alcohol or illicit drug use. REVIEW OF SYSTEMS: CONSTITUTIONAL: Negative for weight loss or gain, ability to conduct usual activities. SKIN: Negative for rash, itching. EYES: Negative for double vision, pain. ENT/MOUTH: Negative for nose bleeding, neck stiffness, pain, tenderness. CARDIOVASCULAR: Negative for palpitations, dyspnea on exertion, orthopnea. RESPIRATORY: Negative for shortness of breath, wheezing, cough, hemoptysis, fever or night sweats. GASTROINTESTINAL: Negative for poor appetite, abdominal pain, heartburn, nausea, vomiting, constipation, or diarrhea. GENITOURINARY: Negative for urgency, frequency, dysuria, nocturia. MUSCULOSKELETAL: Negative for pain, swelling. NEUROLOGIC/PSYCHIATRIC: Negative for anxiety, depression. ALLERGY/IMMUNOLOGIC: Negative for skin rash, bleeding tendency. Otherwise, negative except as stated per HPI. PHYSICAL EXAMINATION: VITAL SIGNS: On admission, blood pressure 151/95, pulse 88, respiratory rate is 13, temperature 97.9 degrees Fahrenheit, and O2 saturation 94% on room air. GENERAL APPEARANCE: This is a 39-year-old male, alert and oriented x3, pleasant, responsive, in no acute distress. HEENT: Pupils are equal, round, reactive to light and accommodation. Extraocular muscles are intact. No scleral icterus. No conjunctival injection. Nares are patent. OP is clear. Teeth in fair repair. NECK: Supple. No cervical adenopathy. No thyromegaly. No carotid bruits. No JVD appreciated. Cervical spine with full active and passive range of motion. No meningeal signs noted. CHEST: Lungs are clear to auscultation bilaterally. CARDIOVASCULAR EXAM: S1 and S2 without noted murmur, rub, or gallop. ABDOMEN: Rounded, soft, nontender, and nondistended. Bowel sounds are positive in all 4 quadrants. There is no hepatosplenomegaly. No abdominal bruits. No rebound or guarding appreciated. EXTREMITIES: Warm and dry with fair turgor. No clubbing, cyanosis, or asymmetric edema appreciated. Pulses palpable distally at the dorsalis pedis, posterior tibial, and popliteal arteries bilaterally. Capillary refill less than 2 seconds. NEUROLOGIC: Cranial nerves 2 through 12 are grossly intact. No focal or lateralizing signs appreciated. PERTINENT LABORATORY AND X-RAY FINDINGS: Sodium 135, potassium 3.6, chloride 101, CO2 of 24, BUN 13, creatinine 1.09, estimated GFR 76, glucose 244, calcium 9.7. Troponin I negative x2. Total CK of 52. CBC within normal limits. PT 11.8, INR 0.9, PTT 29.6. Portable chest x-ray dated 09/05/2019, by my interpretation shows no acute cardiopulmonary process. CT angiogram of the chest dated 09/05/2019, showed no evidence for pulmonary embolus. EKG dated 09/05/2019, by my interpretation shows sinus tachycardia with heart rates in the 110s. Normal R-wave progression noted in the precordial leads. Normal axis. No acute ST-T wave changes noted. ASSESSMENT AND PLAN: 1. Cardiogenic syncope with unstable angina. The patient will be admitted to the intermediate care unit. Likely the patient developed arrhythmia while in the CAT scanner in the emergency room. No specific documentation of arrhythmia as the patient was not on cardiac monitoring at the time. Continue telemetry monitoring. Consult cardiology Service for evaluation. Continue heparin infusion. Resume aspirin and Plavix. Topical nitroglycerin as well as sublingual nitroglycerin. 2. Coronary artery disease. Status post cardiac stent placement to the left anterior descending. Continue management as outlined in #1. Cardiology consult pending. 3. Ischemic cardiomyopathy with ejection fraction of 30% to 35%. Continue medical management currently. Repeat 2D transthoracic echocardiogram to further assess ejection fraction. Continue Entresto. 4. Diabetes mellitus, type 2. Last A1c on record 10.2, 08/10/2018. Repeat hemoglobin A1c in the a.m. Insulin sliding scale for reflexive coverage. ADA diet when tolerating p.o. intake. 5. Prophylaxis. Sequential compression devices while in bed. Pepcid 20 mg p.o. b.i.d. 6. Code status, full. Surrogate medical decision maker is the patient's spouse. Job ID: [id number]
[2019-09-06] MEDS: Nitroglycerin 2% Ointment 1 INCH/1 GM Packet TOP SCH ×3 (06:32→22:28)
[2019-09-06] MEDS ORDERED: Carvedilol 25 MG TAB PO SCH ×2 (08:00→08:45)
[2019-09-06] MEDS ORDERED: Carvedilol 6.25 MG TAB PO SCH (08:00)
[2019-09-06] MEDS ORDERED: Aspirin 325 MG TAB PO SCH (08:00)
[2019-09-06] MEDS ORDERED: Diazepam 5 MG TAB PO SCH (08:30)
[2019-09-06] MEDS ORDERED: Communication Order-Pharmacy FS SCH (08:30)
[2019-09-06] MEDS: Clopidogrel Bisulfate 75 MG TAB PO SCH (08:34)
[2019-09-06] MEDS: Famotidine 20 MG TAB PO SCH ×2 (08:35→20:26)
--- NOTE | 2019-09-06 08:51 | PDOC.HOSPP ---
- Subjective Encounter Date: 09/06/19 Encounter Time: 17:00 Subjective: Patient back from cath. Had his stent opened up a bit more to stick better to the wall, but no real areas of poor flow identified. Spoke with Dr. Guardado and he is concerned about the possibility of ventricular arrhythmias and would like to investigate getting a defibrillator placed. Patient currently doing well but with some intermittent atypical sharp chest pains. - Objective Vital Signs & Weight: Vital Signs (12 hours) Temp Pulse Resp BP Pulse Ox 09/06/19 07:31 98.0 F 09/06/19 04:00 98.2 F 09/05/19 23:38 88 13 151/95 H 94 L 09/05/19 23:34 94 L 09/05/19 23:10 97.9 F Weight Weight 218 lb Most Recent Monitor Data Heart Rate from ECG 89 NIBP 142/75 NIBP BP-Mean 97 Respiration from ECG 17 SpO2 96 I&O: 09/05/19 09/06/19 09/07/19 06:59 06:59 06:59 Intake Total 211 Output Total 550 Balance -339 Result Diagrams: 09/06/19 03:00 09/06/19 03:00 Hospitalist ROS - Review of Systems Constitutional: denies: fever, chills Respiratory: denies: cough, shortness of breath Cardiovascular: reports: chest pain. denies: palpitations Gastrointestinal: denies: nausea, vomiting, abdominal pain - Medication Medications: Active Medications Generic Name Dose Route Start Last Admin Trade Name Freq PRN Reason Stop Dose Admin Aspirin 325 mg 09/06/19 09:00 09/06/19 08:34 Ecotrin PO Not Given DAILY [facility] Clopidogrel Bisulfate 75 mg 09/06/19 09:00 09/06/19 08:34 Plavix PO Not Given DAILY [facility] Famotidine 20 mg 09/06/19 09:00 09/06/19 08:35 Pepcid PO Not Given BID [facility] Heparin Sodium (Porcine) 0 units 09/05/19 23:30 09/06/19 04:01 Heparin 1,000 Units/Ml (10 Ml) SLOW IVP 09/06/19 10:00 4,000 unit WILLCALL SHAISTA Administration Nitroglycerin 1 inch 09/06/19 06:00 09/06/19 06:32 Nitro-Bid 2% Ointment TOP 1 inch Q8HR SHAISTA Administration Pneumococcal Polyvalent Vaccine 0.5 ml 09/06/19 09:00 09/06/19 08:33 Pneumovax 23 IM 09/06/19 09:01 Not Given .ONCE ONE - Exam General Appearance: NAD, awake alert ENT: moist mucosa Heart: RRR, no murmur, no gallops, no rubs Respiratory: CTAB, no wheezes, no rales, no ronchi Gastrointestinal: soft, non-tender, non-distended, normal bowel sounds Extremities: no edema Psychiatric: normal affect, normal behavior, A&O x 3 Hosp A/P (1) Syncope, cardiogenic Code(s): R55 - SYNCOPE AND COLLAPSE Status: Acute (2) Cardiac arrest Code(s): I46.9 - CARDIAC ARREST, CAUSE UNSPECIFIED Status: Acute Plan: ROSC in less than 1 minute, not on monitor at the time (3) CAD (coronary artery disease) Code(s): I25.10 - ATHSCL HEART DISEASE OF [place] CORONARY ARTERY W/O ANG PCTRS Status: Chronic (4) Systolic congestive heart failure Code(s): I50.20 - UNSPECIFIED SYSTOLIC (CONGESTIVE) HEART FAILURE Status: Chronic Qualifiers: Heart failure chronicity: chronic Qualified Code(s): I50.22 - Chronic systolic (congestive) heart failure Plan: EF 30% recently (5) DM type 2 (diabetes mellitus, type 2) Status: Chronic (6) HLD (hyperlipidemia) Code(s): E78.5 - HYPERLIPIDEMIA, UNSPECIFIED Status: Chronic (7) HTN (hypertension) Code(s): I10 - ESSENTIAL (PRIMARY) HYPERTENSION Status: Chronic - Plan Patient without severe abnormality on cath, previous stent patent. Dr. Guardado consulting Dr. Galaviz about possibility of an AICD. BP a bit high, will adjust medications.
[2019-09-06] MEDS ORDERED: Aspirin 325 mg Enteric Coated Tablet PO SCH (09:00)
[2019-09-06] MEDS ORDERED: Sacubitril 49 MG/Valsartan 51 MG TABLET PO SCH (09:00)
[2019-09-06] MEDS ORDERED: Midazolam HCl 2 mg/2 ml Vial ONE (10:07)
[2019-09-06] MEDS ORDERED: Fentanyl 100 MCG/2 ML VIAL ONE ×2 (10:07→12:42)
--- NOTE | 2019-09-06 10:17 | CON ---
DATE OF CONSULTATION: 09/06/2019 REASON FOR CONSULTATION: Recurrent chest pain with syncopal episode. HISTORY OF PRESENT ILLNESS: Mr. Rose is a 39-year-old gentleman. He has history of coronary artery disease as well as a nonischemic cardiomyopathy. The patient recently was hospitalized with severe chest pain and unstable angina. He underwent cardiac catheterizations, found to have a critical stenosis in the left anterior descending artery that was stented with a 3.5 x 24 mm drug-eluting stent. The lesion was thought to be 85% to 90% pre PCI, 0% post PCI. He also had a distal stenosis in the circumflex 50% and a right coronary small distribution vessel 25% plaque. The patient did have some chest pain the night after the stent implantation, but that was self-limited and resolved spontaneously. The patient came back to the hospital yesterday with sharp pain, stabbing, left precordial. It did hurt worse with a deep breath. He initially came to the emergency room, where he was advised to be admitted, but then he declined in the left. He had recurrent pain later and came back to the hospital. The patient's pain was intense. He says it was sharp and stabbing. It hurts with a deep breath, but he said it is similar to the pain he had prior to the stent placed in the LAD. The patient also has history of depressed left ventricular function. The patient did have a CT pulmonary angiogram in the emergency room due to the chest pain and he said when he went from the table for the CAT scan toward the stretcher, he apparently lost consciousness. According to the notes, there was a brief loss of pulse and then CPR was initiated less than a minute. He was not on a monitor at that time. The patient was given nitrates and started on heparin. PAST MEDICAL HISTORY: 1. The patient has a history of a cardiomyopathy in addition to the underlying coronary artery disease. 2. Recent stent implantation. 3. Hyperlipidemia. 4. Diabetes, labile. 5. Hypertension. 6. Ischemic cardiomyopathy, ejection fraction 30% to 35%. MEDICATIONS: Prior to admission: 1. Aspirin. 2. Plavix. 3. Coreg 25 mg twice a day. 4. Entresto 49/51 twice a day. 5. Amlodipine. 6. Fenofibrate. 7. Lipitor 80 mg a day. FAMILY HISTORY: Positive for coronary artery disease. 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 REVIEW OF SYSTEMS: CONSTITUTIONAL: No significant weight gain or loss. VISION: No changes. HEARING: No changes. PULMONARY: No cough or wheezing. GASTROINTESTINAL: No nausea, vomiting, or diarrhea. SKIN: No rashes. NEUROLOGIC: No unilateral weakness or numbness. PSYCHIATRIC: No unusual depression or anxiety. PHYSICAL EXAMINATION: GENERAL: This is a pleasant gentleman, in no distress. VITAL SIGNS: Blood pressure is elevated now 142/75, most recently, but at prior 130/90, pulse in the 90s to 100. NECK: Veins normal. Carotid, normal upstrokes. LUNGS: Clear. CARDIAC: Normal S1 and normal S2. There is no murmur, rub, or gallop. ABDOMEN: Soft and nontender. EXTREMITIES: Warm and dry. No clubbing or cyanosis. There is no edema. Good peripheral pulses. LABORATORY DATA: Potassium level low at 3.3, magnesium 1.7. Troponin is in the negative range at peak 0.16. EKG does reveal some sinus tachycardia. ASSESSMENT: 1. Recurrent chest pain atypical for angina, but he had atypical pain prior to the previous stent implantation. 2. Syncopal episode of uncertain etiology. Unfortunately, he was off the monitor when this occurred. 3. History of hypertension. 4. Diabetes. 5. Smoking. Fortunately, he has not smoked in the last 2 weeks. PLAN: We will go back to the cardiac catheterization lab to recess the coronary arteries, re-evaluate the stent, re-evaluate the vessel in the circumflex and right coronary arteries as well. If further intervention is indicated, we will proceed at that time. If intravascular ultrasound is indicated, we can proceed or fractional flow reserve is indicated, we will proceed. Discussed risk of stroke, heart attack, loss of blood supply to leg or kidney, vessel perforation leading to emergency bypass surgery, stent thrombosis, stent restenosis. This will all be discussed shortly with the patient. We had discussed it previously and the patient does understand and wished to proceed. We will proceed as outlined above. We discussed with the patient prior to going down for the catheterization. ADDENDUM: I did discuss with Mr. Rose again the procedure, cardiac catheterization, possible stent implantation, possible intravascular ultrasound or fractional flow wire. We discussed the risks of stroke, heart attack, iodine allergy, loss of blood supply to leg or kidney, stent thrombosis, stent restenosis, vessel perforation, resulting in emergency surgery. He understands, wishes to proceed thanks. Job ID: [id number]
[2019-09-06] MEDS ORDERED: Nitroglycerin 100MG/250ML BOT 250 ML ONE (10:31)
[2019-09-06] MEDS ORDERED: Heparin 10,000 UNITS/1 ML VIAL ONE ×2 (10:45→11:00)
[2019-09-06] MEDS ORDERED: Atropine Sulfate 1 mg/1 ml Vial ONE (11:00)
[2019-09-06] MEDS ORDERED: Clopidogrel Bisulfate 300 MG TAB PO SCH ×2 (12:30→17:45)
[2019-09-06] MEDS ORDERED: Atropine Sulfate 1 mg/10 ml Syringe ONE (15:53)
[2019-09-06] MEDS ORDERED: Aspirin 81 mg Enteric Coated Tablet PO SCH (17:33)
[2019-09-06] MEDS: Carvedilol 25 MG TAB PO SCH (17:44)
[2019-09-06] MEDS ORDERED: Ketorolac Tromethamine 30 MG/ML VIAL IVP SCH (20:00)
[2019-09-06] MEDS: Atorvastatin Calcium 40 MG TAB PO SCH (20:26)
[2019-09-06] MEDS: Fenofibrate 48 MG TAB PO SCH (20:26)
[2019-09-06] MEDS: Sacubitril 49 MG/Valsartan 51 MG TABLET PO SCH (20:26)
[2019-09-06] MEDS: Amlodipine 10 MG TAB PO SCH (20:29)
[2019-09-07 03:34] LABS: #Eosinphils 0.2 thou/uL (0.0-0.7); #Lymphocytes 2.3 thou/uL (1.20-3.40); #Monocytes 0.7 thou/uL (0.11-0.59); #Neutrophils 3.8 thou/uL (1.40-6.50); %Basophils 0.6 % (0.0-1.0); %Eosinophils 3.5 % (0.0-10.0); %Lymphocytes 32.1 % (21.0-51.0); %Monocytes 10.1 % (0.0-10.0); %Neutrophils 53.7 % (42.0-75.0); Hemoglobin 14.1 g/dL (14.0-18.0); Mean Corpuscular HGB CONC 33.3 g/dL (32.0-36.0); Mean Corpuscular Hemoglobin 28.7 pg (27.0-31.0); Mean Corpuscular Volume 86.1 fL (78.0-98.0); Mean Platelet Volume 8.1 fL (7.4-10.4); Platelet Count 204 thou/uL (130-400); RBC Distribution Width 12.4 % (11.5-14.5); Red Blood Cell (RBC) Count 4.91 mill/uL (4.70-6.10)
[2019-09-07 03:58] LABS: ALT (SGPT) 15 U/L (8-55); AST (SGOT) 15 U/L (5-34); Albumin 3.2 g/dL (3.5-5.0); Alkaline Phosphatase 91 U/L (40-110); Anion Gap 12 mmol/L (10-20); BUN (Urea Nitrogen) 11 mg/dL (8.9-20.6); Bilirubin, Total 0.6 mg/dL (0.2-1.2); Calc. Creatinine Clearance 181 mL/min (70-130); Calcium 8.7 mg/dL (7.8-10.44); Carbon Dioxide 24 mmol/L (22-29); Chloride 102 mmol/L (98-107); Estimated GFR-MDRD Greater than 90; Glucose 156 mg/dL (70-105); Potassium 3.5 mmol/L (3.5-5.1); Protein, Total 6.2 g/dL (6.0-8.3); Sodium 134 mmol/L (136-145)
[2019-09-07] MEDS: Nitroglycerin 2% Ointment 1 INCH/1 GM Packet TOP SCH (05:35)
--- NOTE | 2019-09-07 08:41 | PDOC.HOSPP ---
- Subjective Encounter Date: 09/07/19 Encounter Time: 11:00 Subjective: Patient with mild, few second episode of left sharp chest pain overnight. None this AM. No SOB. No other symptoms. States he feels much better. Waiting on Dr. Galaviz to come talk to him. - Objective Vital Signs & Weight: Vital Signs (12 hours) Temp Pulse Ox 09/07/19 07:20 96 09/07/19 07:18 98.2 F 09/07/19 04:14 97.4 F L 09/06/19 23:19 98.0 F Weight Weight 217 lb 14.4 oz Most Recent Monitor Data Heart Rate from ECG 76 NIBP 152/88 NIBP BP-Mean 109 Respiration from ECG 12 SpO2 99 I&O: 09/06/19 09/07/19 09/08/19 06:59 06:59 06:59 Intake Total 211 1460 Output Total 550 1450 Balance -339 10 Result Diagrams: 09/07/19 03:07 09/07/19 03:07 Hospitalist ROS - Review of Systems Constitutional: denies: fever, chills Respiratory: denies: cough, shortness of breath Cardiovascular: denies: palpitations Gastrointestinal: denies: nausea, vomiting, abdominal pain - Medication Medications: Active Medications Generic Name Dose Route Start Last Admin Trade Name Freq PRN Reason Stop Dose Admin Amlodipine Besylate 10 mg 09/06/19 21:00 09/06/19 20:29 Norvasc PO 10 mg HS SHAISTA Administration Atorvastatin Calcium 80 mg 09/06/19 21:00 09/06/19 20:26 Lipitor PO 80 mg HS SHAISTA Administration Carvedilol 25 mg 09/06/19 17:00 09/06/19 17:44 Coreg PO 25 mg BID-WM SHAISTA Administration Clopidogrel Bisulfate 75 mg 09/06/19 09:00 09/06/19 08:34 Plavix PO Not Given DAILY SHAISTA Famotidine 20 mg 09/06/19 09:00 09/06/19 20:26 Pepcid PO 20 mg BID SHAISTA Administration Fenofibrate 48 mg 09/06/19 21:00 09/06/19 20:26 Tricor PO Not Given HS SHAISTA Nitroglycerin 1 inch 09/06/19 06:00 09/07/19 05:35 Nitro-Bid 2% Ointment TOP 1 inch Q8HR SHAISTA Administration Sacubitril/Valsartan 1 tab 09/06/19 21:00 09/06/19 20:26 Entresto 49 Mg-51 Mg Tablet PO 1 tab BID SHAISTA Administration - Exam General Appearance: NAD, awake alert ENT: moist mucosa Heart: RRR, no murmur, no gallops, no rubs Respiratory: CTAB, no wheezes, no rales, no ronchi Gastrointestinal: soft, non-tender, non-distended, normal bowel sounds Extremities: no edema Psychiatric: normal affect, normal behavior, A&O x 3 Hosp A/P (1) Syncope, cardiogenic Code(s): R55 - SYNCOPE AND COLLAPSE Status: Acute (2) Cardiac arrest Code(s): I46.9 - CARDIAC ARREST, CAUSE UNSPECIFIED Status: Acute (3) CAD (coronary artery disease) Code(s): I25.10 - ATHSCL HEART DISEASE OF [place] CORONARY ARTERY W/O ANG PCTRS Status: Chronic (4) Systolic congestive heart failure Code(s): I50.20 - UNSPECIFIED SYSTOLIC (CONGESTIVE) HEART FAILURE Status: Chronic Qualifiers: Heart failure chronicity: chronic Qualified Code(s): I50.22 - Chronic systolic (congestive) heart failure (5) DM type 2 (diabetes mellitus, type 2) Status: Chronic (6) HLD (hyperlipidemia) Code(s): E78.5 - HYPERLIPIDEMIA, UNSPECIFIED Status: Chronic (7) HTN (hypertension) Code(s): I10 - ESSENTIAL (PRIMARY) HYPERTENSION Status: Chronic - Plan Patient without severe abnormality on cath, previous stent patent. Dr. Guardado consulting Dr. Galaviz about possibility of an AICD. BP decent control. DVT Proph: SCDs, start Lovenox when ok with Cards GI Proph: Pepcid BID
[2019-09-07] MEDS: Famotidine 20 MG TAB PO SCH ×2 (09:39→21:34)
[2019-09-07] MEDS: Sacubitril 49 MG/Valsartan 51 MG TABLET PO SCH ×2 (09:39→21:34)
[2019-09-07] MEDS: Carvedilol 25 MG TAB PO SCH ×2 (09:39→17:22)
[2019-09-07] MEDS: Clopidogrel Bisulfate 75 MG TAB PO SCH (09:58)
[2019-09-07] MEDS: Aspirin Chewable 81 MG TAB PO SCH (09:58)
--- NOTE | 2019-09-07 10:41 | PRG ---
DATE OF SERVICE: 09/07/2019 SUBJECTIVE: Mr. Rose feels well. No further chest pain. He is awake and alert. OBJECTIVE: VITAL SIGNS: Blood pressure 152/80, pulse 80. LUNGS: Clear. CARDIAC: Normal S1, normal S2. ABDOMEN: Soft, nontender. ASSESSMENT: 1. Coronary artery disease, stable, status post further dilatation of the LAD stent, although the LAD stent was not obstructive, those areas were apposed on the ultrasound, therefore, that was re-dilated. I do not think that was the source of his chest pain, however. 2. Had fractional flow reserve of the distal circumflex, did not meet the criteria for intervention. 3. Unresponsive episode of uncertain etiology. PLAN: Discussed with Dr. Galaviz consideration for EP study versus wearing a LifeVest again given Dr. Galaviz will check with the patient and re-evaluate. Job ID: [id number]
[2019-09-07] MEDS: Morphine 2 MG/ML VIAL SLOW IVP PRN ×2 (17:27→21:42)
[2019-09-07] MEDS: Fenofibrate 48 MG TAB PO SCH (21:33)
[2019-09-07] MEDS: Atorvastatin Calcium 40 MG TAB PO SCH (21:34)
[2019-09-07] MEDS: Amlodipine 10 MG TAB PO SCH (21:34)
[2019-09-08] MEDS: Carvedilol 25 MG TAB PO SCH ×2 (06:06→16:53)
--- NOTE | 2019-09-08 07:27 | CON ---
DATE OF CONSULTATION: 09/07/2019 HISTORY OF PRESENT ILLNESS: I am seeing Mr. Rose at our [facility] as an Electrophysiology service consultant. His problems are: 1. Resuscitated cardiac arrest, requiring CPR with spontaneous recovery of pulse while in the CT scanner on 09/05/2019. a. Frequent occurrence of syncopal spells in the past. 2. Chronic systolic congestive heart failure with mixed ischemic/nonischemic cardiomyopathy. a. Original presentation in July 2018 with reduced LVEF in the 30% range. Nonocclusive mid-LAD disease on left heart catheterization at 67%. b. Followup echocardiogram on 08/23/2019, shows LVEF 30% to 35%. c. Repeat left heart catheterization on 08/21/2019, reveals 90% mid LAD lesion, nonoccluded vessel, otherwise 35% LVEF. Status post LAD stent placed. d. Reviewed left heart catheterization from 09/05/2019, demonstrates patent stent, suboptimal wall opposition of the LAD stent seen on IVUS, hence repeated post- dilation performed. No true flow-limiting lesion found though per Dr Guardado's report.. 3. EP study on 08/04/2018 was negative for inducible sustained ventricular tachycardia, normal AV floyd, His bundle function, borderline sinus floyd function. Nonsustained atrial flutter was seen. 4. Elevated BMI. 5. Nonsustained ventricular tachycardia, on telemetry. 6. Type 2 diabetes. ALLERGIES: LATEX AND NATURAL RUBBER. MEDICATIONS: At home include: 1. Metformin. 2. Amlodipine. 3. Multivitamin. 4. Carvedilol 25 mg twice a day. 5. Clopidogrel. 6. Valsartan/sacubitril (Entresto) 49 mg-51 mg twice a day. 7. Aspirin 81 mg daily. 8. Lipitor. 9. Tylenol. SUBJECTIVE: Mr. Hightower is here after developing repeat chest pains. He was admitted through the ER. CT scan was performed. During CT scan, he developed syncopal spell, no pulse was found, resuscitation was started. Unfortunately, this was off telemetry monitors, eventually once the pulse recovered and he was back in sinus rhythm by then, did not receive defibrillation. He states he has these episodes of syncopal spells on occasion associated with exertion. He has chest pains with associated shortness of breath, which was already in occurrence. He did not have any troponin rise with this episode. He had frquent episodes of syncopal spells occurred with exertion prior to the stent placement. Rest of review of systems otherwise unremarkable. PAST MEDICAL HISTORY: As above. SOCIAL HISTORY: The patient is , has 4 children. Denies EtOH or drug abuse. He works as a dispatcher. FAMILY HISTORY: Not contributory. OBJECTIVE DATA: VITAL SIGNS: Blood pressure is 155/94, heart rate 78, respirations 12. The patient is afebrile. GENERAL: Alert and oriented man, elevated BMI, in no apparent distress. NECK: Supple. Jugular veins not distended. CHEST: Coarse without crackles. HEART: Sounds are regular to rate and rhythm. No murmur or gallop. ABDOMEN: Benign. Bowel sounds positive. EXTREMITIES: Lower extremity without edema, clubbing, or cyanosis. Pulses are adequate. NEUROLOGIC: The patient is nonfocal. MUSCULOSKELETAL: Without joint swelling or deformity. SKIN: Without rash. DATABASE: EKG is reviewed, initially revealing sinus rhythm, rate of [address]-T changes, narrow QRS at 108 milliseconds. LABORATORY DATA: White cell count 7, hemoglobin 14.1, platelet count is 204. Sodium 134, potassium 3.5, BUN is 11, and creatinine 0.78 ASSESSMENT AND PLAN: Mr. Rose is a 39-year-old man with prior history of likely mixed ischemic/nonischemic cardiomyopathy with chronically reduced left ventricular ejection fraction in a severe range. He has had a stent placement in the beginning of August when he presented with atypical chest pains with no troponin rise. While in the CT scanner off heart rhythm monitor, he developed an episode of cardiac arrest with no pulse and CPR was initiated, but pulse quickly returned and it was back in normal rhythm by time the rhythm was obtained. Nevertheless this was highly suspicious of arrhythmic origin. Vaso-vagal attack is possible but not very likely in his supine position. He does have nonsustained ventricular tachycardia on telemetry monitors. Dr. Guardado has evaluated him with reviewed left heart catheterization and patency of the previously placed stent was seen, on IVUS some irregularity noted and post- dilation was performed, which did not change the patient's ischemic status. My assessment, this gentleman is very high risk for future ventricular arrhythmias, recurrent syncopal spells, now with episode of cardiac arrest with prior history of non ischemic cardiomyopathy, which has not improved with medical management and technically qualified him for a primary prophylaxis device. Now though with a recent stent placement, which ususally initiates a 90 day waiting period. On the other hand he had the current episode of cardiac arrest episode highly suspicious of arrhythmic origin. He continous to have nonsustained ventricular tachycardia spells on the tele- monitor. Based on these findings, I think most prudent thing is to proceed with ICD implant. I explained the procedure to him, dual-chamber ICD implant, the risks and benefits as detailed and he wants to proceed. We will keep him without food in the morning. Thank you again for allowing me to participate in the care of this patient. Job ID: [id number] MTDD
--- NOTE | 2019-09-08 07:43 | PDOC.HOSPP ---
- Subjective Encounter Date: 09/08/19 Encounter Time: 10:00 Subjective: Patient to get AICD placed today. No chest pain. - Objective Vital Signs & Weight: Vital Signs (12 hours) Temp Pulse BP Pulse Ox 09/08/19 04:02 93 L 09/08/19 03:45 97.6 F 09/07/19 23:40 98.6 F 09/07/19 21:34 74 128/82 09/07/19 20:00 100 Weight Weight 215 lb 8 oz Most Recent Monitor Data Heart Rate from ECG 76 NIBP 146/86 NIBP BP-Mean 106 Respiration from ECG 13 SpO2 95 I&O: 09/07/19 09/08/19 09/09/19 06:59 06:59 06:59 Intake Total 1460 1770 Output Total 1450 2080 Balance 10 -310 Result Diagrams: 09/07/19 03:07 09/07/19 03:07 Additional Labs: Accuchecks 09/07/19 09/07/19 09/06/19 06:02 00:14 05:44 POC Glucose 169 H 171 H 186 H Hospitalist ROS - Review of Systems Constitutional: denies: fever, chills Respiratory: denies: cough, shortness of breath Cardiovascular: denies: chest pain, palpitations Gastrointestinal: denies: nausea, vomiting, abdominal pain - Medication Medications: Active Medications Generic Name Dose Route Start Last Admin Trade Name Freq PRN Reason Stop Dose Admin Acetaminophen 1,000 mg 09/05/19 23:42 09/07/19 09:58 Tylenol PO 1,000 mg Q6H PRN Administration Mild Pain (1-3) Amlodipine Besylate 10 mg 09/06/19 21:00 09/07/19 21:34 Norvasc PO 10 mg HS SHAISTA Administration Aspirin 81 mg 09/07/19 09:00 09/07/19 09:58 Aspirin Chewable PO 81 mg DAILY SHAISTA Administration Atorvastatin Calcium 80 mg 09/06/19 21:00 09/07/19 21:34 Lipitor PO 80 mg HS SHAISTA Administration Carvedilol 25 mg 09/06/19 17:00 09/08/19 06:06 Coreg PO 25 mg BID-WM SHAISTA Administration Clopidogrel Bisulfate 75 mg 09/06/19 09:00 09/07/19 09:58 Plavix PO 75 mg DAILY SHAISTA Administration Famotidine 20 mg 09/06/19 09:00 09/07/19 21:34 Pepcid PO 20 mg BID SHAISTA Administration Fenofibrate 48 mg 09/06/19 21:00 09/07/19 21:33 Tricor PO Not Given HS SHAISTA Morphine Sulfate 2 mg 09/06/19 12:21 09/07/19 21:42 Morphine SLOW IVP 2 mg Q4H PRN Administration Moderate Chest Pain (4-6) Sacubitril/Valsartan 1 tab 09/06/19 21:00 09/07/19 21:34 Entresto 49 Mg-51 Mg Tablet PO 1 tab BID SHAISTA Administration Sodium Chloride 10 ml 09/07/19 21:00 09/07/19 21:48 Flush - Normal Saline IVF 10 ml Q12HR SHAISTA Administration - Exam General Appearance: NAD, awake alert ENT: moist mucosa Heart: RRR, no murmur, no gallops, no rubs Respiratory: CTAB, no wheezes, no rales, no ronchi Gastrointestinal: soft, non-tender, non-distended, normal bowel sounds Psychiatric: normal affect, normal behavior, A&O x 3 Hosp A/P (1) Syncope, cardiogenic Code(s): R55 - SYNCOPE AND COLLAPSE Status: Acute (2) Cardiac arrest Code(s): I46.9 - CARDIAC ARREST, CAUSE UNSPECIFIED Status: Acute (3) CAD (coronary artery disease) Code(s): I25.10 - ATHSCL HEART DISEASE OF [place] CORONARY ARTERY W/O ANG PCTRS Status: Chronic (4) Systolic congestive heart failure Code(s): I50.20 - UNSPECIFIED SYSTOLIC (CONGESTIVE) HEART FAILURE Status: Chronic Qualifiers: Heart failure chronicity: chronic Qualified Code(s): I50.22 - Chronic systolic (congestive) heart failure (5) DM type 2 (diabetes mellitus, type 2) Status: Chronic (6) HLD (hyperlipidemia) Code(s): E78.5 - HYPERLIPIDEMIA, UNSPECIFIED Status: Chronic (7) HTN (hypertension) Code(s): I10 - ESSENTIAL (PRIMARY) HYPERTENSION Status: Chronic - Plan Patient without severe abnormality on cath, previous stent patent. Dr Galaviz consulted and planning AICD. BP decent control. DVT Proph: SCDs, start Lovenox when ok with Cards GI Proph: Pepcid BID
[2019-09-08] MEDS: Clopidogrel Bisulfate 75 MG TAB PO SCH (09:14)
[2019-09-08] MEDS: Aspirin Chewable 81 MG TAB PO SCH (09:14)
[2019-09-08] MEDS: Famotidine 20 MG TAB PO SCH ×2 (09:14→21:59)
[2019-09-08] MEDS: Sacubitril 49 MG/Valsartan 51 MG TABLET PO SCH ×2 (09:18→21:58)
--- NOTE | 2019-09-08 09:51 | PRG ---
DATE OF SERVICE: SUBJECTIVE: Mr. Rose is feeling fine. No chest pain. OBJECTIVE: VITAL SIGNS: Blood pressure 146/86, pulse 90. LUNGS: Clear. CARDIAC: Normal S1, normal S2. ASSESSMENT: 1. Cardiomyopathy. Initially, presented with nonischemic cardiomyopathy. In the last year, did develop a significant stenosis with previous stent implantation. 2. Recent episode of unresponsiveness requiring CPR. No pulse or blood pressure during that episode. Unfortunately, not on the monitor at that time, but high suspicion for ventricular arrhythmia. 3. Recent catheterization and intravascular ultrasound showing no obstructive stenosis, but he had an inadequately expanded stent. There was some area that was unopposed in the LAD stent, therefore I post-dilated with a 4 mm vessel, but that was not the source of the patient's chest pain or ischemia. The procedure was done to reduce risk of restenosis. PLAN: I totally agree with the defibrillator implantation. The patient was on beta-blockers and SHARONDA inhibitors initially. Unfortunately, he did not come back for followup. When he re-presented, he had severely depressed left ventricular function, ejection fraction remains 35% or less. He has been on medicines for over 2 months now. I think that the safest and most appropriate thing is to proceed with defibrillator implantation. Strong suspicion that the patient had ventricular arrhythmias causing his unresponsive episode and cardiac arrest. Job ID: [id number]
[2019-09-08] MEDS ORDERED: PROPOFOL 200 MG/20 ML VIAL ONE (10:45)
[2019-09-08 11:48] LABS: SARS-CoV-2 MS2 Positive; SARS-CoV-2 N Gene Negative; SARS-CoV-2 S Gene Negative; SARS-CoV-2 by NAA Not Detected (NotDetected); SARS-CoV-2 orf1ab Negative
[2019-09-08] MEDS ORDERED: Iopamidol 370 76% 50 ML VIAL FS ONE (11:55)
[2019-09-08] MEDS ORDERED: Propofol 500 MG/50 ML VIAL ONE ×2 (11:59→13:19)
[2019-09-08] MEDS ORDERED: Midazolam HCl 2 mg/2 ml Vial ONE (12:10)
[2019-09-08] MEDS ORDERED: Ketamine 50 MG/ML (10ML VIAL) ONE (12:10)
[2019-09-08] MEDS ORDERED: CEFAZOLIN 1 GM VIAL ONE (12:11)
[2019-09-08] MEDS ORDERED: Gentamicin 80 MG/2 ML VIAL ONE (12:11)
[2019-09-08] MEDS ORDERED: PACU-Morphine 4MG/ML VIAL SLOW IVP PRN (12:52)
[2019-09-08] MEDS ORDERED: Promethazine HCl 25 MG/ML VIAL SLOW IVP PRN (12:52)
[2019-09-08] MEDS ORDERED: Promethazine HCl 25 MG/ML VIAL IM PRN (12:52)
[2019-09-08] MEDS ORDERED: Fentanyl 100 MCG/2 ML VIAL ONE (14:30)
[2019-09-08] MEDS ORDERED: Sodium Chloride 0.9% 10 ML ONE ×2 (14:32→14:57)
--- NOTE | 2019-09-08 14:32 | RAD ---
PORTABLE CHEST 1 VIEW: Date: 09/08/2019 Time: 1417 hours HISTORY: ICD placement. FINDINGS/IMPRESSION: Comparison made with exam of 09/05/2019. Interval placement of left-sided pacemaker is seen with bipolar leads in the right atrium and right v entricle. No pneumothorax is seen. POS: AH
[2019-09-08] MEDS: Acetaminophen/Codeine 30-300mg Tablet PO PRN (16:54)
[2019-09-08] MEDS ORDERED: Acetaminophen/Codeine 30-300mg Tablet PO PRN (17:00)
[2019-09-08] MEDS: Atorvastatin Calcium 40 MG TAB PO SCH (21:59)
[2019-09-08] MEDS: Cephalexin 250 MG CAP PO SCH (21:59)
[2019-09-08] MEDS: Amlodipine 10 MG TAB PO SCH (22:00)
[2019-09-08] MEDS: Fenofibrate 48 MG TAB PO SCH (22:00)
[2019-09-08] MEDS: Morphine 2 MG/ML VIAL SLOW IVP PRN (22:01)
[2019-09-09 07:41] VITALS: BP 129/85; TEMP 98.6
--- NOTE | 2019-09-09 07:41 | PRG ---
DATE OF SERVICE: 09/09/2019 SUBJECTIVE: Mr. Rose is feeling much better. He got his defibrillator implanted yesterday. OBJECTIVE: VITAL SIGNS: His blood pressure is extremely variable last night at 153/90, this morning is 97/62 that was from midnight. LUNGS: Clear. CARDIAC: Normal S1. Normal S2. ABDOMEN: Soft and nontender. EXTREMITIES: There is no edema. Defibrillator site warm and dry, clean. ASSESSMENT: Coronary artery disease, status post stenting, status post balloon dilatation of recently placed stent apposition and a portion of the stent (this was not thought to be the cause of his chest pain and not obstructive, but balloon dilating it should be expected to reduce risk of restenosis). Status post defibrillator implantation for episode of cardiac arrest during the hospital off the monitor with ejection fraction below 35%, thought to be high risk. PLAN: 1. He will go home on Entresto. Resume home dose. It is listed 49/51 twice a day. 2. Amlodipine 10 mg bedtime. 3. Carvedilol 25 mg twice a day. 4. Aspirin. 5. Plavix. 6. Atorvastatin 80 mg a day. 7. Metformin. 8. To be seen back in the office. Job ID: [id number]
--- NOTE | 2019-09-09 08:04 | PRG ---
DATE OF SERVICE: 09/09/2019 ADDENDUM: I did review the records. His blood pressure is very labile. I recommend he reduce amlodipine to 5 mg at bedtime instead of 10. The other medicines are unchanged. Job ID: [id number]
[2019-09-09] MEDS: Aspirin Chewable 81 MG TAB PO SCH (08:57)
[2019-09-09] MEDS: Carvedilol 25 MG TAB PO SCH (08:58)
[2019-09-09] MEDS: Cephalexin 250 MG CAP PO SCH (08:58)
[2019-09-09] MEDS: Clopidogrel Bisulfate 75 MG TAB PO SCH (08:58)
[2019-09-09] MEDS: Sacubitril 49 MG/Valsartan 51 MG TABLET PO SCH (08:58)
[2019-09-09] MEDS: Famotidine 20 MG TAB PO SCH (08:58)
[2019-09-09] MEDS: Acetaminophen/Codeine 30-300mg Tablet PO PRN (08:58)
--- NOTE | 2019-09-09 20:29 | DIS ---
DATE OF ADMISSION: 09/05/2019 DATE OF DISCHARGE: 09/09/2019 DISCHARGE DIAGNOSES: 1. Syncope, possibly secondary to nonsustained ventricular tachycardia, status post automatic implantable cardioverter-defibrillator placement. 2. Cardiac arrest. 3. Systolic congestive heart failure. 4. Hyponatremia. 5. Uncontrolled diabetes. CONSULTATIONS: 1. Dr. Jeff Guardado With Cardiology. 2. Dr. Cruz Galaviz with Electrophysiology. PROCEDURES: 1. Cardiac catheterization 09/04 2. EP study 09/03 3. ICD implant 09/07 BRIEF HISTORY OF PRESENT ILLNESS: This is a 39-year-old male with past medical history of diabetes and hypertension, who presented to the emergency room with substernal chest pain. He underwent a CTA of his chest and while he was in the CTA, he had a syncopal event and lost his pulse and required initiation of CPR. He was started on a heparin drip. HOSPITAL COURSE: 1. Cardiac arrest, requiring CPR, possibly secondary to nonsustained ventricular tachycardia: The patient underwent a cardiac cath on 09/04. He was noted to have a 60% stenosis on the circumflex and no significant stenosis on the LAD, but not completely opposed. He had repeat postdilation around the LAD which was not successful with his angina. He underwent an EP study 09/03, which was negative for inducible-sustained ventricular tachycardia. He was monitored on telemetry and was noted to have nonsustained ventricular tachycardia spells on the tele monitor. Therefore, he underwent an ICD implant on 09/07. The patient remained stable with no further episodes of chest pain. His troponins were normal. He was discharged with Keflex for an additional 6 days. 2. Hypertension: The patient's home blood pressure medications were resumed except for his amlodipine was reduced to 5 mg given that his blood pressures were slightly labile. He was also started on Imdur 30 mg p.o. daily. Blood pressure at the time of discharge is 129/85. 3. Uncontrolled diabetes: The patient's hemoglobin A1c was noted to be 11. The patient is on metformin. He states that he just picked up a prescription for insulin that was prescribed by his PCP. He also has an appointment with an learning designer coming up this week. DISCHARGE PHYSICAL EXAMINATION: VITAL SIGNS: Temperature 98.2, heart rate 86, respiratory rate 20, O2 saturation 96% on room air, and blood pressure 129/85. GENERAL: The patient is alert, awake, oriented x3. CVS: Regular rate and rhythm with no murmurs, rubs, or gallops. He does have a dual-chamber ICD in place on the left side. There is some mild soreness and tenderness around the area. Incision appears to still be healing, but there is no purulent discharge. LUNGS: Clear to auscultation bilaterally. ABDOMEN: Positive bowel sounds. Soft, nontender, and nondistended. EXTREMITIES: No edema. PERTINENT LABORATORY DATA: CBC on 09/06: Normal. BMP on 09/06: Sodium is 134. Rest of BMP unremarkable. LFTs on 09/06: Normal. Hemoglobin A1c on 09/05: 11. COVID PCR on 09/06: Negative. IMAGING DATA: CTA chest on 09/04: Shows no PE. Chest x-ray on 09/07: Negative. DISCHARGE CONDITION: Stable. ACTIVITY: As tolerated. DIET: Heart-healthy diet and diabetic diet. DISCHARGE MEDICATIONS: 1. Amlodipine 5 mg p.o. daily. 2. Aspirin 81 mg p.o. daily. 3. Atorvastatin 80 mg p.o. at bedtime. 4. Coreg 25 mg p.o. b.i.d. 5. Keflex 500 mg p.o. t.i.d. 6. Plavix 75 mg p.o. daily. 7. Imdur 30 mg p.o. daily. 8. Nitroglycerin 0.4 mg p.o. q.5 minutes p.r.n. 9. Entresto 49/51, take one tablet each p.o. b.i.d. 10. Multivitamin one tablet daily. 11. Metformin 500 mg p.o. b.i.d. DISCHARGE INSTRUCTIONS: The patient to follow up with his PCP in a week. He should follow up with his physical therapy assistant instructor in 1 to 2 weeks. He should follow up with his PCP with regard to his uncontrolled diabetes. Come back to the ER if he has any chest pain. Job ID: [id number] [facility]
[2019-09-09] MEDS ORDERED: Amlodipine 10 MG TAB PO SCH (21:00)
--- NOTE | 2019-09-11 05:22 | PQF ---
CLINICAL DOCUMENTATION CLARIFICATION FORM: Dear : Melinda Feldman Date / Time: 09/11/2019 05:21 Please exercise your independent, professional judgment in responding to the clarification form. Clinical indicators are provided on the bottom of this form for your review Please check appropriate box(es) to clarify if the following diagnosis has been ruled in our ruled out: Myocardial Infarction [ ] Ruled in diagnosis [ ] Continue to treat [ ] Resolved [ X] Ruled out diagnosis [ ] Improving [ ] Cannot rule out diagnosis [ ] Other diagnosis [ ] Unable to determine Physician Signature: Date/Time: For continuity of documentation, please document condition throughout progress notes and discharge summary. Thank You. To be completed by CDI/Coding staff for physician review: Present Clinical Indicators - Signs / Symptoms / Labs Results and Location in Medical Record [x] Myocardial Infarction ED Notes 09/04 [x] Complains of chest pain ED Notes 09/04 [x] EKG shows no evidence of ST elevation ED Notes 09/04 [x] concern for increasing chest pain and angina and potential myocardial infarction HP 09/04 [x] cardiac biomarkers negative x2 HP 09/04 [x] patient has a syncopal event and apparently had a brief loss of pulse HP 09/04 [x] Troponin: 09/04=0.016 09/05=0.014 Labs 09/04 Present Risk Factors Results and Location in Medical Record [x] HTN ED Notes 09/04 [x] DM ED Notes 09/04 [x] High Cholesterol ED Notes 09/04 [x] Former Smoker ED Notes 09/04 [x] CAD HP 09/04 [x] HLD HP 09/04 [x] Ischemic CMP HP 09/04 [x] CHF PN 09/05 [x] Cardiac arrest PN 09/05 [x] NSVT DS 09/08 Present Treatments Results and Location in Medical Record [x] LHC with [employer] Transportation Planning Engineer 09/04 [x] AICD insertion OP Note 09/04 [x] EKG ED Notes 09/04 [x] ECG ED Notes 09/04 [x] Cardiology Consult DS 09/08 [x] EP Consult DS 09/08 [x] Aspirin 325mg Oral MAR 09/05 [x] Plavix 300mg Oral MAR 09/05 CDS/Family Advocate Signature: Ryan Vasquez Phone #: [phone] Date/Time: 09/11/19 05:21 This is a permanent part of the Medical Record [facility]
--- NOTE | 2019-09-13 15:16 | EKG ---
Test Reason : Blood Pressure : / mmHG Vent. Rate : 069 BPM Atrial Rate : 069 BPM P-R Int : 172 ms QRS Dur : 108 ms QT Int : 408 ms P-R-T Axes : 018 046 020 degrees QTc Int : 437 ms Normal sinus rhythm Normal ECG When compared with ECG of 06-SEP-2019 13:01, No significant change was found Confirmed by CARMEN FONTANA M.D. ([id number]) on 09/13/2019 3:16:09 PM Referred By: RANDI Confirmed By:CARMEN FONTANA M.D.
== END 2019-09-09 10:52 | disposition home or self-care (01) | DRG 225 ==
LOC: ERS 18:19 → IMCU/EMU 22:09 → 2SE 09-08 11:30
PROVIDERS: ADMIT Family Medicine; ATTEND Family Medicine
PROC: 5A12012 Performance of Cardiac Output, Single, Manual (ICD-10-PCS; 2019-09-05)
PROC: 4A023N7 Measurement of Cardiac Sampling and Pressure, Left Heart, Percutaneous Approach (ICD-10-PCS; principal; 2019-09-06)
PROC: 027034Z Dilation of Coronary Artery, One Artery with Drug-eluting Intraluminal Device, Percutaneous Approach (ICD-10-PCS; 2019-09-06)
PROC: B2111ZZ Fluoroscopy of Multiple Coronary Arteries using Low Osmolar Contrast (ICD-10-PCS; 2019-09-06)
PROC: B2151ZZ Fluoroscopy of Left Heart using Low Osmolar Contrast (ICD-10-PCS; 2019-09-06)
PROC: 4A033BC Measurement of Arterial Pressure, Coronary, Percutaneous Approach (ICD-10-PCS; 2019-09-06)
PROC: 0JH608Z Insertion of Defibrillator Generator into Chest Subcutaneous Tissue and Fascia, Open Approach (ICD-10-PCS; 2019-09-08)
PROC: 02HK3KZ Insertion of Defibrillator Lead into Right Ventricle, Percutaneous Approach (ICD-10-PCS; 2019-09-08)
PROC: 02H63KZ Insertion of Defibrillator Lead into Right Atrium, Percutaneous Approach (ICD-10-PCS; 2019-09-08)
DX: I47.1 Supraventricular tachycardia (principal); I25.110 Atherosclerotic heart disease of native coronary artery with unstable angina pectoris; I42.8 Other cardiomyopathies; I50.22 Chronic systolic (congestive) heart failure; E87.1 Hypo-osmolality and hyponatremia; I46.9 Cardiac arrest, cause unspecified; E78.00 Pure hypercholesterolemia, unspecified; I25.5 Ischemic cardiomyopathy; E78.5 Hyperlipidemia, unspecified; I11.0 Hypertensive heart disease with heart failure; E11.65 Type 2 diabetes mellitus with hyperglycemia; Z79.01 Long term (current) use of anticoagulants; Z79.84 Long term (current) use of oral hypoglycemic drugs; Z79.82 Long term (current) use of aspirin; Z79.899 Other long term (current) drug therapy; Z91.040 Latex allergy status; Z95.5 Presence of coronary angioplasty implant and graft; Z87.891 Personal history of nicotine dependence
CPT/HCPCS: 33249; 36005; 36415; 36416; 71045; 71275; 75820; 76942; 80048; 80053; 82550; 83036; 84484; 85025; 85347; 85610; 85730; 87635; 92920; 92978; 93005; 93010; 93458; 93571; 93798; 94760; 96365; 96366; 96375; 99153; 99284; C1721; C1753; C1769; C1777; C1898; J0153; J0282; J0461; J0690; J1580; J1644; J1885; J2250; J2270; J2405; J2704; J3010; J7070; Q9967; U0003

== ENCOUNTER 2020-01-26 00:23 | Observation (INO) | payer OTHER ==
[2020-01-26 00:52] LABS: #Basophils 0.1 thou/uL (0.0-0.2); #Eosinphils 0.5 thou/uL (0.0-0.7); #Lymphocytes 4.3 thou/uL (1.20-3.40); #Monocytes 1.1 thou/uL (0.11-0.59); #Neutrophils 4.8 thou/uL (1.40-6.50); %Basophils 0.9 % (0.0-1.0); %Eosinophils 4.2 % (0.0-10.0); %Lymphocytes 39.8 % (21.0-51.0); %Monocytes 10.1 % (0.0-10.0); Hemoglobin 15.6 g/dL (14.0-18.0); Mean Corpuscular HGB CONC 35.9 g/dL (32.0-36.0); Mean Corpuscular Volume 86.4 fL (78.0-98.0); Mean Platelet Volume 8.2 fL (7.4-10.4); Platelet Count 216 thou/uL (130-400); RBC Distribution Width 12.1 % (11.5-14.5); Red Blood Cell (RBC) Count 5.01 mill/uL (4.70-6.10); White Blood Cell (WBC) Count 10.7 thou/uL (4.8-10.8)
[2020-01-26 00:58] LABS: PTT 28.8 sec (22.9-36.1); Prothrombin Time 12.9 sec (12.0-14.7)
[2020-01-26] MEDS ORDERED: hydrALAZINE 20 MG/ML VIAL ONE (01:14)
[2020-01-26 01:16] LABS: ALT (SGPT) 16 U/L (8-55); AST (SGOT) 13 U/L (5-34); Albumin 3.4 g/dL (3.5-5.0); Alkaline Phosphatase 118 U/L (40-110); Anion Gap 14 mmol/L (10-20); BUN (Urea Nitrogen) 16 mg/dL (8.9-20.6); Bilirubin, Total 0.4 mg/dL (0.2-1.2); Calc. Creatinine Clearance 0 mL/min (70-130); Calcium 8.8 mg/dL (7.8-10.44); Carbon Dioxide 27 mmol/L (22-29); Chloride 100 mmol/L (98-107); Globulin 3.4 g/dL (2.4-3.5); Glucose 192 mg/dL (70-105); Potassium 3.2 mmol/L (3.5-5.1); Protein, Total 6.8 g/dL (6.0-8.3); Sodium 138 mmol/L (136-145)
[2020-01-26] MEDS ORDERED: Acetaminophen 325 MG TAB PO PRN (01:49)
--- NOTE | 2020-01-26 02:18 | PDOC.BPN ---
- Brief Progress Note [id number] HP dictated
[2020-01-26] MEDS ORDERED: Dextrose 5% in Water 1,000 ML IV PRN (02:19)
[2020-01-26] MEDS ORDERED: HumaLOG 300 UNITS/3 ML VIAL SC PRN (02:19)
[2020-01-26] MEDS ORDERED: Dextrose 50% Abboject 50 ML SYRINGE SLOW IVP PRN (02:19)
[2020-01-26] MEDS ORDERED: Potassium Chloride 20 MEQ TAB PO SCH (02:30)
--- NOTE | 2020-01-26 03:17 | HP ---
CHIEF COMPLAINT: Left-sided numbness. HISTORY OF PRESENT ILLNESS: Mr. Rose is a 39-year-old male with past medical history of cardiomyopathy, hypertension, diabetes mellitus, pacemaker/defibrillator, myocardial infarction, among others, presents to the emergency room with left-sided numbness that started 1-hour prior to arrival. The patient has been reporting intermittent chest pain for the last 2 days. He denies headache. He stated that he feels his left side of his body sleeps, but he does not feel weakness. He is able to move his left arm and leg. He has no vision or speech changes. Denies any trauma. In the emergency room, the patient's blood pressure was elevated at 188/113. The patient was given 10 mg IV hydralazine. Repeat blood pressure is 150/95. Workup in the emergency room including CT of the brain, no acute finding. Lab work, the patient has a potassium of 3.2, glucose 192. CBC is unremarkable. The patient is being admitted to hospital for further management. PAST MEDICAL HISTORY: As mentioned above in the history of present illness. PAST SURGICAL HISTORY: 1. Pacemaker/defibrillator. 2. Cardiac stent. 3. Tubes in the ear. SOCIAL HISTORY: He drinks socially. Former cigarette smoker. FAMILY HISTORY: Reviewed and noncontributory. ALLERGIES: ALLERGIC TO LATEX. HOME MEDICATIONS: See home medication reconciliation form for updated medications. REVIEW OF SYSTEMS: Review of 14 systems negative except what is mentioned in the history of present illness. PHYSICAL EXAMINATION: GENERAL: The patient is awake, alert, not in acute distress. VITAL SIGNS: Blood pressure 150/95, pulse is 77, respiratory rate is 20, temperature is 98.3, oxygen saturation 99% on room air. HEAD AND NECK: Normocephalic, atraumatic. NECK: Supple. No JVD. CHEST: Fair bilateral air entry. HEART: S1, S2. Regular. ABDOMEN: Soft, nontender. Bowel sounds present. NEUROLOGIC: Awake, alert, oriented x3. Motor strength of 5/5 in all extremities. Mild decreased sensation to the left upper extremity and left lower extremity. There is mild left facial droop. LABORATORY DATA: As mentioned above in the history of present illness. IMAGING STUDIES: As mentioned above in the history of present illness. ASSESSMENT: 1. CVA?/left-sided numbness. 2. Hypertensive urgency. 3. Cardiomyopathy. 4. History of pacemaker/AICD. 5. History of SD. 6. History of cardiac stents. 7. Hypokalemia. PLAN: 1. Admit. 2. Tele monitor. 3. Frequent neuro checks. 4. Aspirin. 5. MRI of the brain. 6. Consult Neurology in a.m. for evaluation and further recommendations. 7. PT/OT eval and treat. 8. Replace potassium. 9. DVT prophylaxis appropriate. 10. Expected length of stay, at least 1 midnight if the patient is stable and further workup negative. Job ID: [id number]
[2020-01-26 05:26] LABS: Cardiac Risk 5.6 (Less than 4.5)
[2020-01-26 05:30] LABS: Troponin I Less than 0.010 ng/mL (< 0.028)
[2020-01-26 08:06] VITALS: BMI 29.8
[2020-01-26 08:22] LABS: Troponin I 0.012 ng/mL (< 0.028)
--- NOTE | 2020-01-26 08:25 | RAD ---
FRONTAL RADIOGRAPH CHEST: DATE: 01/26/2020. COMPARISON: 09/08/2019. HISTORY: Possible stroke. FINDINGS: Heart and mediastinal contours are grossly unremarkable. Dual-lead left-sided AICD present. No pneu mothorax or pleural fluid. No focal consolidation or alveolar edema. IMPRESSION: No radiographic evidence of acute cardiopulmonary disease. POS: [facility]
[2020-01-26] MEDS ORDERED: FLU VACC QS2020-21(6MOS UP)/PF 60 MCG/0.5 ML SYRINGE IM ONE (08:30)
[2020-01-26] MEDS ORDERED: Enoxaparin Sodium 40 MG/0.4 ML SYRINGE SC SCH (09:00)
[2020-01-26] MEDS ORDERED: Aspirin 81 mg Enteric Coated Tablet PO SCH (09:00)
[2020-01-26] MEDS ORDERED: Sacubitril 49 MG/Valsartan 51 MG TABLET PO SCH (09:00)
[2020-01-26] MEDS ORDERED: Aspirin 325 mg Enteric Coated Tablet PO SCH (09:00)
[2020-01-26] MEDS ORDERED: Clopidogrel Bisulfate 75 MG TAB PO SCH (09:00)
--- NOTE | 2020-01-26 09:23 | CT ---
PRELIMINARY REPORT/[facility]/EMERGENCY AFTER HOURS PROCEDURE: Receipt of this report by the clinical staff was confirmed with Sho Bajwa RN by Meño Romero on Jan 26, 2020 00:57:00 DIRECTOR OF STRATEGIC PARTNERSHIPS. Addendum electronically signed by Meño Romero on January 26, 2020 12:57:58 AM DIRECTOR OF STRATEGIC PARTNERSHIPS CT brain and neck angiography with contrast: Comparison: Noncontrast study from same day Indication: LVL 1 STROKE STARTED HAVING LEFT SIDED WEAKNESS AN HOUR AGO. VAN + DROPPING TO THE LEFT S JULI OF FACE, UNABLE TO STAND AND PROPERLY MOVE LEFT SIDE. LAST SEEN NORMAL 0 Findings: No intracranial hemorrhage. No mass lesion. No midline shift. No herniation. No definite evidence of acute ischemia or stroke. No hydrocephalus. 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 Normal left vertebral artery. No atherosclerosis, stenosis, aneurysm or occlusion identified in the intracranial or cervical vascul ature. Probable attenuation artifact causing heterogeneous contrast opacification in the right and left barajas tic canals. No significant spinal canal narrowing. Normal airway and epiglottis. Small amount of fluid and mucosal thickening in the ethmoid sinuses. The bones, sinuses and soft tiss ues are otherwise unremarkable. Impression: No acute intracranial abnormality. No significant vascular abnormality, high-grade stenosis or occlus ion identified. Heterogeneous contrast opacification of both internal carotid arteries in the carotic canals is likely related to attenuation artifact. This is unlikely to be irregular contrast opacific ation related to symmetric, focal vasculitis at this level. Consider follow up or further evaluation if symptoms persist or progress.. ELECTRONICALLY SIGNED BY: Lucas Rothman MD Jan 26, 2020 12:54:14 AM DIRECTOR OF STRATEGIC PARTNERSHIPS This report is intended for review by the ordering physician only, in accordance of law. If you recei ve this report in error, please call [facility] at [phone]. FINAL REPORT CTA ANGIO HEAD CTA ANGIO NECK: TECHNIQUE: 1. Multiple contiguous axial images were obtained in a CTA of the neck with contrast. Three-D sagit iain and coronal MIP reformats were performed. 2. Multiple contiguous axial images were obtained in a CTA of the head with contrast. Three-D sagit iain and coronal MIP reformats were performed. HISTORY: Stroke with left-sided weakness. FINDINGS/IMPRESSION: I agree with the findings and impression given in the preliminary report per [facility] physici an. 1. No significant CTA abnormality of the neck. 2. No significant CTA abnormality of the head. POS: EAA
--- NOTE | 2020-01-26 09:24 | CT ---
PRELIMINARY REPORT/[facility]/EMERGENCY AFTER HOURS PROCEDURE: Receipt of this report by the clinical staff was confirmed with China Catalan MD by Aquiles Romero on Jan 26, 2020 00:42:00 BRAND COMMUNICATIONS MANAGER. Addendum electronically signed by Meño Romero on January 26, 2020 12:42:51 AM [address] COMMUNICATION[employer] MANAGER CT brain without contrast: Comparison: 08/09/2018 Findings: No intracranial hemorrhage. No mass lesion. No midline shift or herniation. No definite evidence of acute ischemia or stroke. No hydrocephalus. No acute fracture. The bones, sinuses and soft tissues are otherwise unremarkable. Impression: No acute intracranial abnormality. ELECTRONICALLY SIGNED BY: Lucas Rothman MD Jan 26, 2020 12:40:47 AM BRAND COMMUNICATIONS MANAGER This report is intended for review by the ordering physician only, in accordance of law. If you recei ve this report in error, please call [facility] at [phone]. FINAL REPORT EMERGENT AFTER HOURS CT OF THE BRAIN WITHOUT CONTRAST: HISTORY: Left-sided weakness and stroke. COMPARISON: 08/09/2018. FINDINGS/IMPRESSION: I agree with the findings and impression given in the preliminary report per [facility] physici an. No evidence of acute intracranial abnormality. POS: EAA
[2020-01-26 12:20] VITALS: TEMP 98.4
[2020-01-26 12:58] LABS: SARS-CoV-2 MS2 Positive; SARS-CoV-2 N Gene Negative; SARS-CoV-2 S Gene Negative; SARS-CoV-2 by NAA Not Detected (NotDetected); SARS-CoV-2 orf1ab Negative
--- NOTE | 2020-01-26 13:10 | CON ---
NEUROLOGY CONSULTATION DATE OF CONSULTATION: 01/26/2020 REASON FOR CONSULTATION: Left-sided numbness. HISTORY OF PRESENT ILLNESS: Mr. Rose is a 39-year-old male with history significant for cardiomyopathy, hypertension, diabetes mellitus, pacemaker/defibrillator, and myocardial infarction, presented to the emergency room with an episode of left-sided weakness, which is now resolved. The patient has reported intermittent chest pain for the last two days and when he tried to move his left arm and leg, felt heavy and he was unable to walk. The patient denies nausea or vomiting, but does admit headache, intermittent chest pain. He denies double vision, loss of vision, vertigo, recent illness, or recent exposure to COVID. In the emergency room, his blood pressure was 188/113 and he was given hydralazine and CT scan was done, which did not reveal any acute intracranial pathology and was admitted for further management. PAST MEDICAL HISTORY: Hypertension, cardiomyopathy, diabetes mellitus, and myocardial infarction. PAST SURGICAL HISTORY: Pacemaker/defibrillator, cardiac stent, tubes in the ear. SOCIAL HISTORY: The patient is a former smoker. Drinks socially. FAMILY HISTORY: No significant family history. ALLERGIES: ALLERGIES TO LATEX. HOME MEDICATIONS: See home medication reconciliation form for updated medication. REVIEW OF SYSTEMS: All 14 systems reviewed and were negative except the pertinent positives and negatives mentioned in the HPI. PHYSICAL EXAMINATION: VITAL SIGNS: Blood pressure 150/95, pulse 77, and respiratory rate 20. GENERAL: Alert and awake male, in no acute distress. CVS: Regular rate and rhythm. CHEST: Clear. ABDOMEN: Soft. NECK: Supple. NEUROLOGIC: Mental status, the patient is alert and oriented to person, place, and time. Recent and remote memory intact. Fund of knowledge is appropriate. Cranial nerves 2 through 12 intact. Motor, muscle tone and bulk are normal. Strength 5/5 bilaterally. Sensory intact. Gait deferred due to the patient's safety reason. DATA REVIEWED: Reviewed the head CT, which was negative for acute intracranial pathology. ASSESSMENT AND PLAN: Mr. Rose is a 39-year-old male with history significant for cardiomyopathy, hypertension, diabetes, status post pacemaker placement, presented with the episode of a left-sided numbness, most likely transient ischemic attack since the patient has risk factors. MRI of the brain to rule out acute intracranial process. 2D echo to evaluate for left ventricular ejection fraction. Telemetry to rule out arrhythmias. Consider Cardiology input. Permissive control of blood pressure at this time. Strict control of blood glucose. Continue home medications. Continue medical management per primary team. We will continue to follow. Continue aspirin, plavix and high-intensity statin for secondary stroke prevention. Check hemoglobin A1c, fasting lipid panel, and TSH. Neuro checks every 4 hours. We will continue to follow. Plan discussed in detail with the patient and the nursing staff. Job ID: [id number] [id number]
[2020-01-26] MEDS ORDERED: Iopamidol-370 76% 500 ML 1 ML ONE (13:13)
[2020-01-26 14:17] VITALS: BP 158/86
--- NOTE | 2020-01-26 16:19 | PDOC.DS.DS ---
Provider - Provider Date of Admission: 01/26/20 01:54 Date of Discharge: 01/26/20 Admitting Provider: Pallavi Carney MD Consultations: Neurology Course - Hospital Course Hospital Course: He was seen by physical therapy and was able to ambulate 150 feet with the recommendations for discharge to home. He was seen in consultation by neurology.This patient is a 39-year-old male with a history of a significant ischemic cardiomyopathy requiring defibrillator placement. He also has hypertension and diabetes. Patient was in his usual state of health until the day of admission. Patient reportedly was sleeping got up and took a shower and subsequently had a bnav-bau-amuaoze type tingling over the left side of his body. This included his face. There is also some concern with speech. He subsequently tried to get up and ambulate but felt very lightheaded. He sub sequently presented to the hospital. There was concern for stroke versus possible TIA. He had a CT scan of the head and CTA of the head neck which was unremarkable. His symptoms fully resolved. He ambulated with physical therapy approximately 150 feet with the recommendation for discharge to home. He was seen by neurology. Recommendation was for follow-up MRI. However the rep for his defibrillator was not available to reset the pacemaker/defibrillator to a safe mode. He did have interrogation of the device. There was no evidence of arrhythmias or atrial fibrillation. Patient was already on full dose aspirin, Plavix and high intensity statin. With that there was no likelihood that there would be any need for additional medication changes and the patient was felt to be stable for discharge to home. Patient's exam was unremarkable. He had no focal deficits. Resuscitation Status: 01/26/20 01:49 Resuscitation Status Routine Resuscitation Status: FULL: Full Resuscitation - Labs Lab Results: 01/26/20 00:39 01/26/20 00:39 Abnormal Lab Results - Last 48 hrs 01/26/20 00:39: Monocytes % 10.1 H, Lymphocytes # 4.3 H, Monocytes # 1.1 H 01/26/20 00:39: Potassium 3.2 L, Alkaline Phosphatase 118 H, Albumin 3.4 L, Albumin/Globulin Ratio 1.0 L 01/26/20 04:37: Triglycerides 318 H - Physical Exam Vitals: Vital Signs (12 hours) Temp Pulse Pulse Pulse Resp BP BP 01/26/20 13:35 75 78 158/86 H 142/80 H 01/26/20 11:22 98.4 F 89 16 01/26/20 07:40 98.3 F 75 16 BP BP Pulse Ox 01/26/20 13:35 01/26/20 11:22 122/66 97 01/26/20 07:40 163/87 H 97 Weight Weight 213 lb 14.4 oz Physical Exam: The patient was seen and examined on the day of discharge. Problem - Problem (1) TIA (transient ischemic attack) Code(s): G45.9 - TRANSIENT CEREBRAL ISCHEMIC ATTACK, UNSPECIFIED Status: Acute (2) Ischemic cardiomyopathy Code(s): I25.5 - ISCHEMIC CARDIOMYOPATHY Status: Acute (3) CAD (coronary artery disease) Code(s): I25.10 - ATHSCL HEART DISEASE OF [place] CORONARY ARTERY W/O ANG PCTRS Status: Chronic (4) DM type 2 (diabetes mellitus, type 2) Status: Chronic (5) HLD (hyperlipidemia) Code(s): E78.5 - HYPERLIPIDEMIA, UNSPECIFIED Status: Chronic (6) HTN (hypertension) Code(s): I10 - ESSENTIAL (PRIMARY) HYPERTENSION Status: Chronic Plan - Discharge Medications Home Medications: Medication Instructions Recorded Confirmed Type Multivit with Minerals/Lutein [Pub 1 each PO DAILY 08/10/18 01/26/20 History Multivitamin 50 Plus Tab] metFORMIN [Glucophage] 500 mg PO BID 08/10/18 01/26/20 History Carvedilol [Coreg] 25 mg PO BID-WM #60 tab 08/13/18 01/26/20 Rx Clopidogrel Bisulfate [Plavix] 75 mg PO DAILY #30 tab 08/13/18 01/26/20 Rx Sacubitril/Valsartan 49/51 1 each PO BID 08/22/19 01/26/20 History [Entresto 49 mg-51 mg Tablet] Acetaminophen [Tylenol Regular 650 mg PO Q4H PRN #120 tab 08/24/19 01/26/20 Rx Strength] Aspirin [Ecotrin Low Strength] 81 mg PO DAILY #120 tab 08/24/19 01/26/20 Rx Atorvastatin Calcium [Lipitor] 80 mg PO HS #120 tab 08/24/19 01/26/20 Rx Isosorbide Mononitrate [Imdur ER] 30 mg PO DAILY #30 tab 09/09/19 01/26/20 Rx Nitroglycerin [Nitrostat] 0.4 mg PO Q5MIN PRN #30 tab 09/09/19 01/26/20 Rx Insulin NPH Hum/Reg Insulin HM 15 unit SC HS 01/26/20 01/26/20 History [Novolin 70/30] Insulin NPH Hum/Reg Insulin HM 25 unit SC DAILY-AC 01/26/20 01/26/20 History [Novolin 70/30] Allergies: Latex, Natural Rubber Allergy (Verified 01/26/20 06:19) - Discharge Instructions Activity:: Activity as Tolerated Nourishment:: Heart Healthy Diet - Follow up Plan Referrals: Irma Herring MD [Active] - 7 Days (Please call office to schedule a follow up appointment) Queenie Camacho MD [MD Not on Staff] - 7 Days (Please call your primary care provider to schedule your follow up appointment for next week.) Disposition: HOME Quality - Care Measures CORE MEASURES:: N/A
[2020-01-26] MEDS ORDERED: Carvedilol 25 MG TAB PO SCH (17:00)
[2020-01-26 20:04] LABS: SARS-CoV-2 IgG Ab Non-Reactive (NonReactive); SARS-CoV-2 IgG Index 0.04 S/CO (< 1.40)
[2020-01-26] MEDS ORDERED: Atorvastatin Calcium 40 MG TAB PO SCH ×2 (21:00)
--- NOTE | 2020-02-03 15:07 | EKG ---
Test Reason : Blood Pressure : / mmHG Vent. Rate : 076 BPM Atrial Rate : 076 BPM P-R Int : 174 ms QRS Dur : 098 ms QT Int : 388 ms P-R-T Axes : 041 032 043 degrees QTc Int : 436 ms Normal sinus rhythm Cannot rule out Anterior infarct , age undetermined Abnormal ECG Confirmed by MICHEL RAY ([id number]), proposal editor RAULITO WELCH ([id number]) on 02/03/2020 3:06:41 PM Referred By: Confirmed By:MICHEL RAY
== END 2020-01-26 16:10 | disposition home or self-care (01) ==
LOC: ERS 00:23 → 2NO 01:54
PROVIDERS: ADMIT Internal Medicine; ATTEND Internal Medicine
DX: G45.9 Transient cerebral ischemic attack, unspecified (principal); I16.0 Hypertensive urgency; I10 Essential (primary) hypertension; E11.9 Type 2 diabetes mellitus without complications; I25.2 Old myocardial infarction; E87.6 Hypokalemia; I25.5 Ischemic cardiomyopathy; Z95.810 Presence of automatic (implantable) cardiac defibrillator; Z79.4 Long term (current) use of insulin; Z79.899 Other long term (current) drug therapy; Z87.891 Personal history of nicotine dependence; Z91.040 Latex allergy status; Z91.048 Other nonmedicinal substance allergy status; Z95.5 Presence of coronary angioplasty implant and graft; Z20.828 Contact with and (suspected) exposure to other viral communicable diseases
CPT/HCPCS: 36415; 36416; 70450; 70496; 70498; 71045; 80053; 80061; 83880; 84484; 85025; 85610; 85730; 86769; 87635; 90471; 90662; 93005; 93306; 96372; 96374; G0008; G0378; J0360; J1650; Q9967; U0003

== ENCOUNTER 2020-06-10 21:46 | Inpatient (IN) | payer BC, OTHER ==
[2020-06-10 22:18] LABS: #Basophils 0.1 thou/uL (0.0-0.2); #Eosinphils 0.4 thou/uL (0.0-0.7); #Lymphocytes 3.2 thou/uL (1.20-3.40); #Neutrophils 7.6 thou/uL (1.40-6.50); %Basophils 0.7 % (0.0-1.0); %Eosinophils 3.6 % (0.0-10.0); %Lymphocytes 26.2 % (21.0-51.0); %Monocytes 8.1 % (0.0-10.0); %Neutrophils 61.3 % (42.0-75.0); Hemoglobin 14.9 g/dL (14.0-18.0); Mean Corpuscular HGB CONC 35.3 g/dL (32.0-36.0); Mean Corpuscular Hemoglobin 30.5 pg (27.0-31.0); Mean Corpuscular Volume 86.3 fL (78.0-98.0); Mean Platelet Volume 8.5 fL (7.4-10.4); Platelet Count 218 thou/uL (130-400); RBC Distribution Width 12.1 % (11.5-14.5); White Blood Cell (WBC) Count 12.3 thou/uL (4.8-10.8)
[2020-06-10 22:37] LABS: ALT (SGPT) 14 U/L (8-55); AST (SGOT) 12 U/L (5-34); Albumin 3.2 g/dL (3.5-5.0); Alkaline Phosphatase 124 U/L (40-110); Anion Gap 15 mmol/L (10-20); BUN (Urea Nitrogen) 17 mg/dL (8.9-20.6); Bilirubin, Total 0.8 mg/dL (0.2-1.2); Calc. Creatinine Clearance 0 mL/min (70-130); Calcium 8.6 mg/dL (7.8-10.44); Carbon Dioxide 24 mmol/L (22-29); Chloride 99 mmol/L (98-107); Glucose 417 mg/dL (70-105); Potassium 3.4 mmol/L (3.5-5.1); Protein, Total 6.2 g/dL (6.0-8.3); Sodium 135 mmol/L (136-145)
[2020-06-10 23:01] LABS: CKMB 1.3 ng/mL (0-6.6)
[2020-06-10] MEDS ORDERED: Nitroglycerin 0.4 MG TAB 1 EACH ONE (23:05)
[2020-06-10] MEDS ORDERED: Acetaminophen 500 MG TAB ONE (23:05)
[2020-06-10] MEDS ORDERED: Ondansetron PF 4 MG/2 ML Vial ONE (23:05)
[2020-06-10] MEDS ORDERED: Aspirin 325 MG TAB ONE (23:05)
[2020-06-10] MEDS ORDERED: HumuLIN 70/30 (300 UNITS/3 ML VIAL) SC SCH (23:45)
[2020-06-10] MEDS ORDERED: Dextrose 5% in Water 1,000 ML IV PRN (23:58)
[2020-06-10] MEDS ORDERED: Dextrose 50% Abboject 50 ML SYRINGE SLOW IVP PRN (23:58)
[2020-06-11] MEDS ORDERED: Morphine 2 MG/ML VIAL SLOW IVP PRN (00:18)
[2020-06-11] MEDS ORDERED: Ondansetron ODT 4 MG TAB PO PRN (00:27)
[2020-06-11] MEDS ORDERED: Acetaminophen 325 MG TAB PO PRN (00:27)
[2020-06-11] MEDS: HumaLOG 300 UNITS/3 ML VIAL SC PRN ×2 (01:00→18:25)
[2020-06-11 01:26] LABS: Troponin I 0.025 ng/mL (< 0.028)
[2020-06-11 01:34] VITALS: BMI 30.6
[2020-06-11 04:21] LABS: #Basophils 0.1 thou/uL (0.0-0.2); #Eosinphils 0.4 thou/uL (0.0-0.7); #Lymphocytes 3.6 thou/uL (1.20-3.40); #Monocytes 0.9 thou/uL (0.11-0.59); #Neutrophils 5.7 thou/uL (1.40-6.50); %Basophils 0.6 % (0.0-1.0); %Eosinophils 3.6 % (0.0-10.0); %Lymphocytes 33.9 % (21.0-51.0); Hemoglobin 14.3 g/dL (14.0-18.0); Mean Corpuscular HGB CONC 34.9 g/dL (32.0-36.0); Mean Platelet Volume 8.1 fL (7.4-10.4); Platelet Count 191 thou/uL (130-400); Red Blood Cell (RBC) Count 4.76 mill/uL (4.70-6.10); White Blood Cell (WBC) Count 10.6 thou/uL (4.8-10.8)
[2020-06-11 04:31] LABS: Hemoglobin A1c 11.9 % (4.0-6.0)
[2020-06-11 04:45] LABS: Anion Gap 11 mmol/L (10-20); BUN (Urea Nitrogen) 18 mg/dL (8.9-20.6); Calc. Creatinine Clearance 120 mL/min (70-130); Calcium 8.9 mg/dL (7.8-10.44); Carbon Dioxide 24 mmol/L (22-29); Cardiac Risk 8.1 (Less than 4.5); Chloride 101 mmol/L (98-107); Cholesterol 195 mg/dl (< 200 Desired); Glucose 326 mg/dL (70-105); HDL Cholesterol 24 mg/dL (>60 Neg Risk); Potassium 3.1 mmol/L (3.5-5.1); Sodium 133 mmol/L (136-145); Triglycerides 573 mg/dL (Less than 150)
[2020-06-11 04:48] LABS: Troponin I 0.014 ng/mL (< 0.028)
[2020-06-11] MEDS ORDERED: HumuLIN 70/30 (300 UNITS/3 ML VIAL) SC SCH (07:30)
[2020-06-11] MEDS: Morphine 4 MG/ML VIAL SLOW IVP PRN (07:50)
[2020-06-11] MEDS: Ondansetron PF 4 MG/2 ML Vial IVP PRN ×2 (07:50→18:27)
[2020-06-11 09:00] LABS: SARS-CoV-2 PCR by NAA Not Detected (NotDetected)
[2020-06-11] MEDS ORDERED: Nitroglycerin 0.4 MG TAB (25 Tab Bottle) SL PRN (09:04)
[2020-06-11] MEDS: Aspirin 81 mg Enteric Coated Tablet PO SCH (09:07)
[2020-06-11] MEDS: Sacubitril 49 MG/Valsartan 51 MG TABLET PO SCH ×2 (09:07→21:33)
[2020-06-11] MEDS: Clopidogrel Bisulfate 75 MG TAB PO SCH (09:07)
[2020-06-11] MEDS: Carvedilol 25 MG TAB PO SCH ×2 (11:25→18:20)
[2020-06-11] MEDS ORDERED: Potassium Chloride 20 MEQ TAB PO SCH (19:15)
[2020-06-11] MEDS ORDERED: Communication Order-Pharmacy FS SCH (19:15)
[2020-06-11] MEDS: HumuLIN 70/30 (300 UNITS/3 ML VIAL) SC SCH (21:19)
[2020-06-11] MEDS: Atorvastatin Calcium 40 MG TAB PO SCH (21:23)
[2020-06-11] MEDS: Nitroglycerin 2% Ointment 1 INCH/1 GM Packet TOP SCH (21:33)
[2020-06-12] MEDS: HumaLOG 300 UNITS/3 ML VIAL SC PRN ×2 (00:06→18:58)
[2020-06-12] MEDS: Sacubitril 49 MG/Valsartan 51 MG TABLET PO SCH ×2 (06:38→20:04)
[2020-06-12] MEDS: Clopidogrel Bisulfate 75 MG TAB PO SCH (06:38)
[2020-06-12] MEDS: Aspirin 81 mg Enteric Coated Tablet PO SCH (06:38)
[2020-06-12] MEDS: Sodium Chloride 0.9% 1,000 ML IV SCH ×2 (06:38→16:07)
[2020-06-12] MEDS: Carvedilol 25 MG TAB PO SCH ×2 (06:39→17:45)
[2020-06-12] MEDS: Nitroglycerin 2% Ointment 1 INCH/1 GM Packet TOP SCH ×2 (06:39→16:31)
[2020-06-12] MEDS: Ondansetron PF 4 MG/2 ML Vial IVP PRN (08:18)
[2020-06-12] MEDS ORDERED: Lidocaine 1% (PF) 30 ML VIAL ONE (10:07)
[2020-06-12] MEDS ORDERED: Iopamidol 370 76% 100 ML VIAL ONE (10:24)
[2020-06-12] MEDS ORDERED: Iopamidol 370 76% 50 ML VIAL FS ONE (10:24)
[2020-06-12] MEDS ORDERED: Fentanyl 100 MCG/2 ML VIAL ONE (11:44)
[2020-06-12] MEDS ORDERED: Midazolam HCl 2 mg/2 ml Vial ONE (11:44)
[2020-06-12] MEDS ORDERED: Nitroglycerin 100MG/250ML BOT 0 ML ONE (11:53)
[2020-06-12] MEDS ORDERED: Ondansetron PF 4 MG/2 ML Vial ONE (11:55)
[2020-06-12] MEDS ORDERED: Metoprolol Tartrate 5 MG/5 ML VIAL ONE ×3 (12:33→12:50)
[2020-06-12] MEDS ORDERED: hydrALAZINE 20 MG/ML VIAL ONE (12:52)
[2020-06-12] MEDS ORDERED: Sodium Chloride 0.9% 200 ML IV PRN (13:54)
[2020-06-12] MEDS ORDERED: Nitroglycerin 0.4 MG TAB (25 Tab Bottle) SL PRN (13:54)
[2020-06-12] MEDS ORDERED: Communication Order-Pharmacy FS SCH (17:45)
[2020-06-12] MEDS: HumuLIN 70/30 (300 UNITS/3 ML VIAL) SC SCH (20:02)
[2020-06-12] MEDS: Atorvastatin Calcium 40 MG TAB PO SCH (20:04)
[2020-06-13] MEDS: Nitroglycerin 2% Ointment 1 INCH/1 GM Packet TOP SCH ×4 (04:22→22:21)
[2020-06-13] MEDS: Sacubitril 49 MG/Valsartan 51 MG TABLET PO SCH ×2 (05:57→20:49)
[2020-06-13] MEDS: Aspirin 81 mg Enteric Coated Tablet PO SCH (05:58)
[2020-06-13] MEDS: Sodium Chloride 0.9% 1,000 ML IV SCH ×2 (05:58→17:14)
[2020-06-13] MEDS: Clopidogrel Bisulfate 75 MG TAB PO SCH (05:58)
[2020-06-13] MEDS: Carvedilol 25 MG TAB PO SCH ×2 (05:58→16:06)
[2020-06-13] MEDS ORDERED: HumuLIN 70/30 (300 UNITS/3 ML VIAL) SC SCH ×2 (07:30→21:00)
[2020-06-13] MEDS ORDERED: Midazolam HCl 2 mg/2 ml Vial ONE (07:33)
[2020-06-13] MEDS ORDERED: Fentanyl 100 MCG/2 ML VIAL ONE ×2 (07:33→10:48)
[2020-06-13] MEDS ORDERED: Heparin 10,000 UNITS/ 10 ML VIAL ONE (07:33)
[2020-06-13] MEDS ORDERED: Lidocaine 1% (PF) 30 ML VIAL ONE (07:34)
[2020-06-13] MEDS ORDERED: Nitroglycerin 100MG/250ML BOT 250 ML ONE (09:57)
[2020-06-13] MEDS ORDERED: Ondansetron PF 4 MG/2 ML Vial ONE (10:44)
[2020-06-13] MEDS ORDERED: Metoprolol Tartrate 5 MG/5 ML VIAL ONE ×2 (11:02→11:05)
[2020-06-13] MEDS ORDERED: Iopamidol 370 76% 100 ML VIAL ONE (11:32)
[2020-06-13] MEDS ORDERED: Iopamidol 370 76% 50 ML VIAL FS ONE (11:32)
[2020-06-13] MEDS ORDERED: Morphine 2 MG/ML VIAL ONE (13:57)
[2020-06-13] MEDS: Morphine 4 MG/ML VIAL SLOW IVP PRN ×2 (13:59→18:04)
[2020-06-13] MEDS ORDERED: HumaLOG 300 UNITS/3 ML VIAL SC PRN ×2 (16:30→23:15)
[2020-06-13] MEDS: Atorvastatin Calcium 40 MG TAB PO SCH (20:49)
[2020-06-14 05:26] LABS: #Eosinphils 0.2 thou/uL (0.0-0.7); #Lymphocytes 2.9 thou/uL (1.20-3.40); %Basophils 0.4 % (0.0-1.0); %Eosinophils 2.6 % (0.0-10.0); %Lymphocytes 31.4 % (21.0-51.0); %Monocytes 10.9 % (0.0-10.0); %Neutrophils 54.7 % (42.0-75.0); Hemoglobin 13.9 g/dL (14.0-18.0); Mean Corpuscular HGB CONC 35.5 g/dL (32.0-36.0); Mean Corpuscular Hemoglobin 31.1 pg (27.0-31.0); Mean Corpuscular Volume 87.5 fL (78.0-98.0); Mean Platelet Volume 8.1 fL (7.4-10.4); Platelet Count 194 thou/uL (130-400); RBC Distribution Width 12.1 % (11.5-14.5); Red Blood Cell (RBC) Count 4.48 mill/uL (4.70-6.10); White Blood Cell (WBC) Count 9.1 thou/uL (4.8-10.8)
[2020-06-14 05:47] LABS: ALT (SGPT) 17 U/L (8-55); AST (SGOT) 22 U/L (5-34); Albumin 2.8 g/dL (3.5-5.0); Alkaline Phosphatase 101 U/L (40-110); Anion Gap 11 mmol/L (10-20); BUN (Urea Nitrogen) 15 mg/dL (8.9-20.6); Bilirubin, Total 0.7 mg/dL (0.2-1.2); Calc. Creatinine Clearance 160 mL/min (70-130); Calcium 8.6 mg/dL (7.8-10.44); Carbon Dioxide 28 mmol/L (22-29); Chloride 103 mmol/L (98-107); Globulin 3.1 g/dL (2.4-3.5); Glucose 155 mg/dL (70-105); Potassium 3.7 mmol/L (3.5-5.1); Protein, Total 5.9 g/dL (6.0-8.3); Sodium 138 mmol/L (136-145)
[2020-06-14] MEDS: Nitroglycerin 2% Ointment 1 INCH/1 GM Packet TOP SCH (06:17)
[2020-06-14 08:05] VITALS: TEMP 98.3
[2020-06-14] MEDS: Carvedilol 25 MG TAB PO SCH (08:17)
[2020-06-14] MEDS: Clopidogrel Bisulfate 75 MG TAB PO SCH (08:17)
[2020-06-14] MEDS: Sacubitril 49 MG/Valsartan 51 MG TABLET PO SCH (08:17)
[2020-06-14] MEDS ORDERED: Aspirin Chewable 81 MG TAB PO SCH (09:00)
[2020-06-14 09:35] VITALS: BP 152/88
== END 2020-06-14 09:31 | disposition home or self-care (01) | DRG 247 ==
LOC: ERS 21:46 → INTOOBSV 23:35 → 2SW 23:35 → OBSVTOIN 23:35
PROVIDERS: ADMIT Internal Medicine; ATTEND Internal Medicine
PROC: 027034Z Dilation of Coronary Artery, One Artery with Drug-eluting Intraluminal Device, Percutaneous Approach (ICD-10-PCS; principal; 2020-06-12)
PROC: 4A023N7 Measurement of Cardiac Sampling and Pressure, Left Heart, Percutaneous Approach (ICD-10-PCS; 2020-06-12)
PROC: B2111ZZ Fluoroscopy of Multiple Coronary Arteries using Low Osmolar Contrast (ICD-10-PCS; 2020-06-12)
PROC: B41D1ZZ Fluoroscopy of Aorta and Bilateral Lower Extremity Arteries using Low Osmolar Contrast (ICD-10-PCS; 2020-06-12)
DX: T82.855A Stenosis of coronary artery stent, initial encounter (principal); I25.110 Atherosclerotic heart disease of native coronary artery with unstable angina pectoris; E87.1 Hypo-osmolality and hyponatremia; Z20.822 Contact with and (suspected) exposure to COVID-19; I16.0 Hypertensive urgency; I25.5 Ischemic cardiomyopathy; E78.5 Hyperlipidemia, unspecified; E78.00 Pure hypercholesterolemia, unspecified; I50.9 Heart failure, unspecified; I11.0 Hypertensive heart disease with heart failure; E11.65 Type 2 diabetes mellitus with hyperglycemia; E78.2 Mixed hyperlipidemia; Y83.1 Surgical operation with implant of artificial internal device as the cause of abnormal reaction of the patient, or of later complication, without mention of misadventure at the time of the procedure; I25.2 Old myocardial infarction; Z82.49 Family history of ischemic heart disease and other diseases of the circulatory system; Z95.810 Presence of automatic (implantable) cardiac defibrillator; Z91.040 Latex allergy status; Z79.01 Long term (current) use of anticoagulants; Z79.899 Other long term (current) drug therapy; Z79.82 Long term (current) use of aspirin; Z79.02 Long term (current) use of antithrombotics/antiplatelets; Z79.4 Long term (current) use of insulin; Q24.9 Congenital malformation of heart, unspecified; Z87.891 Personal history of nicotine dependence
CPT/HCPCS: 36415; 36416; 71045; 75625; 75630; 76705; 76942; 80048; 80053; 80061; 82553; 83036; 83880; 84484; 85025; 85347; 87635; 92928; 93005; 93010; 93306; 93454; 93458; 94760; 96374; 96375; 96376; 97139; 99152; 99153; C1874; C9600; G0378; J0360; J1644; J1815; J2001; J2250; J2270; J2405; J3010; Q0162; Q9967; U0003; U0005

== ENCOUNTER 2020-09-20 18:13 | Observation (INO) | payer BC ==
[2020-09-20] MEDS ORDERED: Ondansetron PF 4 MG/2 ML Vial ONE ×2 (18:49→23:17)
[2020-09-20] MEDS ORDERED: Morphine 4 MG/ML VIAL ONE (18:49)
[2020-09-20 19:12] LABS: #Eosinphils 0.4 thou/uL (0.0-0.7); #Lymphocytes 3.7 thou/uL (1.20-3.40); #Monocytes 1.1 thou/uL (0.11-0.59); #Neutrophils 7.1 thou/uL (1.40-6.50); %Basophils 0.2 % (0.0-1.0); %Eosinophils 2.9 % (0.0-10.0); %Monocytes 8.8 % (0.0-10.0); Hemoglobin 15.1 g/dL (14.0-18.0); Mean Corpuscular HGB CONC 35.7 g/dL (32.0-36.0); Mean Corpuscular Hemoglobin 31.1 pg (27.0-31.0); Mean Corpuscular Volume 87.1 fL (78.0-98.0); Mean Platelet Volume 8.1 fL (7.4-10.4); Platelet Count 262 thou/uL (130-400); Red Blood Cell (RBC) Count 4.86 mill/uL (4.70-6.10); White Blood Cell (WBC) Count 12.3 thou/uL (4.8-10.8)
[2020-09-20 19:27] LABS: ALT (SGPT) 11 U/L (8-55); AST (SGOT) 12 U/L (5-34); Albumin 3.6 g/dL (3.5-5.0); Alkaline Phosphatase 143 U/L (40-110); Anion Gap 14 mmol/L (10-20); BUN (Urea Nitrogen) 19 mg/dL (8.9-20.6); Bilirubin, Total 0.4 mg/dL (0.2-1.2); CK (CPK) 61 U/L (30-200); Calc. Creatinine Clearance 0 mL/min (70-130); Calcium 9.4 mg/dL (7.8-10.44); Carbon Dioxide 25 mmol/L (22-29); Chloride 98 mmol/L (98-107); Glucose 259 mg/dL (70-105); Lipase 24 U/L (8-78); Potassium 3.3 mmol/L (3.5-5.1); Protein, Total 7.6 g/dL (6.0-8.3); Sodium 134 mmol/L (136-145)
[2020-09-20 20:54] LABS: SARS-CoV-2 NAA Rapid Test Not Detected (NotDetected)
[2020-09-20] MEDS ORDERED: Bupivacaine 0.5% 10 ML VIAL ONE (21:09)
[2020-09-20] MEDS ORDERED: Lidocaine 1% w/Epinephrine 1:100K 20 ML VIAL ONE (21:09)
[2020-09-20 21:32] LABS: Bacteria/HPF None Seen HPF (None Seen); Bilirubin Negative (Negative); Blood, Urine 2+ (Negative); Clarity Clear (Clear); Glucose, Urine (Dipstick) 200 mg/dL (Negative); Ketone, Urine Negative (Negative); Leukocyte Negative Leu/uL (Negative); Nitrite Negative (Negative); Protein, Urine (Dipstick) 100 mg/dL (Neg-Trace); Specific Gravity, Urine 1.015 (1.002-1.036); Squamous Epithelial 0-3 HPF (0-3); Urobilinogen Normal mg/dL (Less than 2); WBC/HPF 0-3 HPF (0-3)
[2020-09-20] MEDS ORDERED: HYDROmorphone 0.5 MG/0.5 ML SYRINGE ONE (22:01)
[2020-09-20] MEDS ORDERED: cefTRIAXone\\ROCEPHIN 2 GM VIAL ONE (22:01)
[2020-09-20] MEDS ORDERED: Mupirocin 2% Ointment 22 GM Tube TOP SCH (22:30)
[2020-09-20] MEDS ORDERED: Vancomycin 1 GM/200 ML BAG ONE (23:17)
[2020-09-21 00:43] LABS: Troponin I Less than 0.010 ng/mL (< 0.028)
[2020-09-21] MEDS ORDERED: Acetaminophen 650 MG Suppository PR PRN (02:29)
[2020-09-21] MEDS ORDERED: Ondansetron PF 4 MG/2 ML Vial IVP PRN (02:29)
[2020-09-21] MEDS ORDERED: Ondansetron ODT 4 MG TAB PO PRN (02:29)
[2020-09-21] MEDS ORDERED: Potassium Chloride 20 MEQ TAB PO SCH (02:30)
[2020-09-21] MEDS ORDERED: Potassium Chloride 20 MEQ TAB ONE (02:40)
[2020-09-21] MEDS ORDERED: Dextrose 5% in Water 1,000 ML IV PRN (02:49)
[2020-09-21] MEDS ORDERED: HumaLOG 300 UNITS/3 ML VIAL SC PRN (02:49)
[2020-09-21] MEDS ORDERED: Dextrose 50% Abboject 50 ML SYRINGE SLOW IVP PRN (02:49)
[2020-09-21] MEDS ORDERED: hydrALAZINE 20 MG/ML VIAL SLOW IVP PRN (02:51)
[2020-09-21] MEDS ORDERED: HYDROcodone/Acetaminophen 5/325 mg Tablet ONE ×3 (02:58→12:53)
[2020-09-21 03:01] LABS: #Basophils 0.1 thou/uL (0.0-0.2); #Eosinphils 0.3 thou/uL (0.0-0.7); #Lymphocytes 2.6 thou/uL (1.20-3.40); #Neutrophils 5.7 thou/uL (1.40-6.50); %Basophils 0.6 % (0.0-1.0); %Eosinophils 3.3 % (0.0-10.0); %Lymphocytes 26.8 % (21.0-51.0); %Neutrophils 59.2 % (42.0-75.0); Hemoglobin 13.5 g/dL (14.0-18.0); Mean Corpuscular HGB CONC 35.4 g/dL (32.0-36.0); Mean Corpuscular Volume 87.5 fL (78.0-98.0); Mean Platelet Volume 8.5 fL (7.4-10.4); Platelet Count 184 thou/uL (130-400); RBC Distribution Width 11.8 % (11.5-14.5); Red Blood Cell (RBC) Count 4.36 mill/uL (4.70-6.10); White Blood Cell (WBC) Count 9.6 thou/uL (4.8-10.8)
[2020-09-21] MEDS: HYDROcodone/Acetaminophen 5/325 mg Tablet PO PRN ×4 (03:06→16:38)
[2020-09-21] MEDS: Sodium Chloride 0.9% 1,000 ML IV SCH ×3 (03:07→19:57)
[2020-09-21 03:28] LABS: Anion Gap 13 mmol/L (10-20); BUN (Urea Nitrogen) 19 mg/dL (8.9-20.6); Calc. Creatinine Clearance 0 mL/min (70-130); Calcium 8.6 mg/dL (7.8-10.44); Carbon Dioxide 20 mmol/L (22-29); Chloride 103 mmol/L (98-107); Glucose 204 mg/dL (70-105); Sodium 133 mmol/L (136-145)
[2020-09-21 03:46] LABS: Troponin I Less than 0.010 ng/mL (< 0.028)
[2020-09-21] MEDS ORDERED: Vancomycin 1 GM in Premix Bag 1 BAG IVPB SCH (06:00)
[2020-09-21] MEDS ORDERED: Vancomycin 1 GM/200 ML BAG ONE (06:35)
[2020-09-21] MEDS ORDERED: Clopidogrel Bisulfate 75 MG TAB ONE (08:45)
[2020-09-21] MEDS ORDERED: Aspirin 81 mg Enteric Coated Tablet ONE (08:45)
[2020-09-21] MEDS: Clopidogrel Bisulfate 75 MG TAB PO SCH (08:53)
[2020-09-21] MEDS ORDERED: Aspirin 81 mg Enteric Coated Tablet PO SCH (09:00)
[2020-09-21] MEDS: Sacubitril 49 MG/Valsartan 51 MG TABLET PO SCH ×2 (09:03→20:43)
[2020-09-21] MEDS ORDERED: metFORMIN 500 MG TAB PO SCH (11:00)
[2020-09-21] MEDS ORDERED: Carvedilol 25 MG TAB PO SCH (11:00)
[2020-09-21] MEDS ORDERED: Vancomycin HCl 1.5 GM in Sodium Chloride 0.9% 250 ML 300 ML IVPB SCH (11:00)
[2020-09-21] MEDS ORDERED: cefTRIAXone\\ROCEPHIN 1 GM VIAL ONE (11:46)
[2020-09-21] MEDS: cefTRIAXone\\ROCEPHIN 2 GM in Sodium Chloride 0.9% 100 ML IVPB SCH (11:51)
[2020-09-21] MEDS ORDERED: Acetaminophen 325 MG TAB ONE (11:55)
[2020-09-21] MEDS: Acetaminophen 325 MG TAB PO PRN (11:57)
[2020-09-21 14:04] VITALS: BMI 29.7
[2020-09-21] MEDS: Carvedilol 25 MG TAB PO SCH (16:39)
[2020-09-21] MEDS: HumaLOG 300 UNITS/3 ML VIAL SC PRN (16:39)
[2020-09-21] MEDS: Atorvastatin Calcium 40 MG TAB PO SCH (20:01)
[2020-09-21] MEDS: metFORMIN 500 MG TAB PO SCH (20:01)
[2020-09-21] MEDS ORDERED: Mag-Al 1200 mg/1200 mg/30 ML UDCUP PO PRN (20:21)
[2020-09-21] MEDS: Famotidine 20 MG TAB PO SCH (20:42)
[2020-09-22] MEDS: cefTRIAXone\\ROCEPHIN 2 GM in Sodium Chloride 0.9% 100 ML IVPB SCH ×3 (00:03→23:25)
[2020-09-22] MEDS: VANCOMYCIN 2 GRAM/400 ML BAG 2 GM in Premix Bag 1 BAG IVPB SCH (01:24)
[2020-09-22 05:13] LABS: #Basophils 0.1 thou/uL (0.0-0.2); #Eosinphils 0.4 thou/uL (0.0-0.7); #Lymphocytes 2.5 thou/uL (1.20-3.40); #Monocytes 0.9 thou/uL (0.11-0.59); #Neutrophils 6.1 thou/uL (1.40-6.50); %Basophils 0.7 % (0.0-1.0); %Eosinophils 3.8 % (0.0-10.0); %Lymphocytes 25.4 % (21.0-51.0); %Monocytes 9.2 % (0.0-10.0); Hemoglobin 12.7 g/dL (14.0-18.0); Mean Corpuscular HGB CONC 34.4 g/dL (32.0-36.0); Mean Corpuscular Hemoglobin 30.5 pg (27.0-31.0); Mean Corpuscular Volume 88.5 fL (78.0-98.0); Mean Platelet Volume 8.2 fL (7.4-10.4); Platelet Count 182 thou/uL (130-400); RBC Distribution Width 11.8 % (11.5-14.5); Red Blood Cell (RBC) Count 4.18 mill/uL (4.70-6.10); White Blood Cell (WBC) Count 9.9 thou/uL (4.8-10.8)
[2020-09-22 05:33] LABS: Anion Gap 11 mmol/L (10-20); BUN (Urea Nitrogen) 15 mg/dL (8.9-20.6); Calc. Creatinine Clearance 76 mL/min (70-130); Calcium 8.1 mg/dL (7.8-10.44); Carbon Dioxide 23 mmol/L (22-29); Chloride 105 mmol/L (98-107); Glucose 244 mg/dL (70-105); Potassium 3.7 mmol/L (3.5-5.1); Sodium 135 mmol/L (136-145)
[2020-09-22] MEDS: HumaLOG 300 UNITS/3 ML VIAL SC PRN ×3 (06:14→18:05)
[2020-09-22] MEDS: Carvedilol 25 MG TAB PO SCH ×2 (08:03→18:05)
[2020-09-22] MEDS: Clopidogrel Bisulfate 75 MG TAB PO SCH (08:03)
[2020-09-22] MEDS: metFORMIN 500 MG TAB PO SCH ×2 (08:04→21:35)
[2020-09-22] MEDS: Famotidine 20 MG TAB PO SCH ×2 (08:04→21:35)
[2020-09-22] MEDS: Sacubitril 49 MG/Valsartan 51 MG TABLET PO SCH ×2 (08:04→21:35)
[2020-09-22] MEDS: HYDROcodone/Acetaminophen 5/325 mg Tablet PO PRN ×2 (08:30→21:43)
[2020-09-22] MEDS: Sodium Chloride 0.9% 1,000 ML IV SCH ×2 (11:11→18:14)
[2020-09-22] MEDS ORDERED: Aspirin Chewable 81 MG TAB PO SCH (18:00)
[2020-09-22] MEDS ORDERED: HumuLIN 70/30 (300 UNITS/3 ML VIAL) SC SCH (21:00)
[2020-09-22] MEDS: Atorvastatin Calcium 40 MG TAB PO SCH (21:34)
[2020-09-22 23:17] LABS: Vancomycin, Trough 13.6 ug/mL
[2020-09-23] MEDS: VANCOMYCIN 2 GRAM/400 ML BAG 2 GM in Premix Bag 1 BAG IVPB SCH (00:11)
[2020-09-23] MEDS: HumaLOG 300 UNITS/3 ML VIAL SC PRN (06:40)
[2020-09-23] MEDS ORDERED: HumuLIN 70/30 (300 UNITS/3 ML VIAL) SC SCH (07:30)
[2020-09-23] MEDS: Carvedilol 25 MG TAB PO SCH (08:08)
[2020-09-23] MEDS: Famotidine 20 MG TAB PO SCH (08:09)
[2020-09-23] MEDS: Clopidogrel Bisulfate 75 MG TAB PO SCH (08:09)
[2020-09-23 08:10] VITALS: TEMP 97.7
[2020-09-23] MEDS: metFORMIN 500 MG TAB PO SCH (08:10)
[2020-09-23] MEDS: Sacubitril 49 MG/Valsartan 51 MG TABLET PO SCH (08:10)
[2020-09-23] MEDS: Acetaminophen 325 MG TAB PO PRN (08:25)
[2020-09-23] MEDS ORDERED: Multivitamin W/ Minerals 1 TAB PO SCH (09:00)
[2020-09-23] MEDS: cefTRIAXone\\ROCEPHIN 2 GM in Sodium Chloride 0.9% 100 ML IVPB SCH (10:49)
[2020-09-23 11:29] VITALS: BP 137/72
== END 2020-09-23 12:00 | disposition home or self-care (01) ==
LOC: ERS 18:13 → ERHOLD 21:52 → 2SW 09-21 13:30
PROVIDERS: ADMIT Student in an Organized Health Care Education/Training Program; ATTEND Student in an Organized Health Care Education/Training Program
PROC: 099M0ZZ Drainage of Nasal Septum, Open Approach (ICD-10-PCS; principal; 2020-09-20)
DX: A41.9 Sepsis, unspecified organism (principal); J34.0 Abscess, furuncle and carbuncle of nose; B95.61 Methicillin susceptible Staphylococcus aureus infection as the cause of diseases classified elsewhere; I25.10 Atherosclerotic heart disease of native coronary artery without angina pectoris; E11.9 Type 2 diabetes mellitus without complications; I25.5 Ischemic cardiomyopathy; I11.0 Hypertensive heart disease with heart failure; I50.20 Unspecified systolic (congestive) heart failure; Z20.822 Contact with and (suspected) exposure to COVID-19; Z79.4 Long term (current) use of insulin; Z79.899 Other long term (current) drug therapy; Z95.5 Presence of coronary angioplasty implant and graft; Z95.810 Presence of automatic (implantable) cardiac defibrillator; Z87.891 Personal history of nicotine dependence; Z91.040 Latex allergy status
CPT/HCPCS: 36415; 36416; 70487; 71045; 80048; 80053; 80202; 81003; 81015; 82550; 83605; 83690; 84484; 85025; 87040; 87070; 87077; 87186; 87205; 93005; 93010; 96365; 96366; 96367; 96375; 96376; G0378; J0696; J1170; J1815; J2270; J2405; J3370; J3490; Q9967; U0002; U0005

== ENCOUNTER 2020-10-28 07:19 | Observation (INO) | payer BC, OTHER ==
[2020-10-28] MEDS ORDERED: Labetalol HCl 100 MG/20 ML VIAL ONE (07:38)
[2020-10-28] MEDS ORDERED: Morphine 4 MG/ML VIAL ONE (07:38)
[2020-10-28] MEDS ORDERED: Ondansetron PF 4 MG/2 ML Vial ONE (07:50)
[2020-10-28 08:13] LABS: #Basophils 0.1 thou/uL (0.0-0.2); #Eosinphils 0.4 thou/uL (0.0-0.7); #Lymphocytes 3.4 thou/uL (1.20-3.40); #Monocytes 0.9 thou/uL (0.11-0.59); %Basophils 0.9 % (0.0-1.0); %Eosinophils 3.7 % (0.0-10.0); %Lymphocytes 34.5 % (21.0-51.0); %Monocytes 9.3 % (0.0-10.0); %Neutrophils 51.5 % (42.0-75.0); Mean Corpuscular HGB CONC 34.9 g/dL (32.0-36.0); Mean Corpuscular Hemoglobin 30.1 pg (27.0-31.0); Mean Corpuscular Volume 86.4 fL (78.0-98.0); Mean Platelet Volume 8.6 fL (7.4-10.4); Platelet Count 226 thou/uL (130-400); RBC Distribution Width 12.1 % (11.5-14.5); White Blood Cell (WBC) Count 9.7 thou/uL (4.8-10.8)
[2020-10-28 08:37] LABS: ALT (SGPT) 25 U/L (8-55); AST (SGOT) 15 U/L (5-34); Albumin 3.7 g/dL (3.5-5.0); Alkaline Phosphatase 121 U/L (40-110); Anion Gap 16 mmol/L (10-20); BUN (Urea Nitrogen) 19 mg/dL (8.9-20.6); Bilirubin, Total 0.6 mg/dL (0.2-1.2); Calc. Creatinine Clearance 0 mL/min (70-130); Calcium 9.8 mg/dL (7.8-10.44); Carbon Dioxide 22 mmol/L (22-29); Chloride 98 mmol/L (98-107); Globulin 4.1 g/dL (2.4-3.5); Glucose 417 mg/dL (70-105); Lipase 35 U/L (8-78); Potassium 3.7 mmol/L (3.5-5.1); Protein, Total 7.8 g/dL (6.0-8.3); Sodium 132 mmol/L (136-145)
[2020-10-28] MEDS ORDERED: Nitroglycerin 50 MG/250 ML BOT 0 ML ONE (10:20)
[2020-10-28] MEDS ORDERED: Nitroglycerin 0.4 MG TAB 1 EACH ONE (10:22)
[2020-10-28] MEDS ORDERED: Aspirin Chewable 81 MG TAB ONE (10:39)
[2020-10-28] MEDS ORDERED: Calcium Carbonate 500 MG ChewTAB PO PRN (11:14)
[2020-10-28] MEDS ORDERED: Acetaminophen 325 MG TAB PO PRN (11:14)
[2020-10-28] MEDS ORDERED: Ondansetron PF 4 MG/2 ML Vial IVP PRN (11:14)
[2020-10-28] MEDS ORDERED: Senokot S 8.6-50 MG TAB PO PRN (11:14)
[2020-10-28] MEDS ORDERED: Sodium Chloride 0.9% 1,000 ML IV SCH (11:15)
[2020-10-28] MEDS ORDERED: HumaLOG 300 UNITS/3 ML VIAL SC PRN (11:45)
[2020-10-28] MEDS ORDERED: Dextrose 50% Abboject 50 ML SYRINGE SLOW IVP PRN (11:45)
[2020-10-28] MEDS ORDERED: Dextrose 5% in Water 1,000 ML IV PRN (11:45)
[2020-10-28 11:48] LABS: Troponin I Less than 0.010 ng/mL (< 0.028)
[2020-10-28] MEDS ORDERED: Iopamidol-370 76% 500 ML 1 ML ONE (12:14)
[2020-10-28] MEDS ORDERED: Pantoprazole 40 MG VIAL IVP SCH (12:30)
[2020-10-28] MEDS ORDERED: Sucralfate 1 GM/10 ML UDCUP PO SCH ×2 (12:30→12:45)
[2020-10-28] MEDS ORDERED: Sucralfate 1 GM TAB PO SCH (12:30)
[2020-10-28] MEDS ORDERED: Clopidogrel Bisulfate 75 MG TAB PO SCH (12:30)
[2020-10-28 14:02] VITALS: BMI 29.9
[2020-10-28 14:52] LABS: Troponin I Less than 0.010 ng/mL (< 0.028)
[2020-10-28] MEDS ORDERED: hydrALAZINE 20 MG/ML VIAL SLOW IVP PRN (14:54)
[2020-10-28] MEDS: Sucralfate 1 GM/10 ML UDCUP PO SCH ×2 (15:30→21:48)
[2020-10-28] MEDS: Nitroglycerin 2% Ointment 1 INCH/1 GM Packet TOP SCH (16:35)
[2020-10-28] MEDS: Carvedilol 25 MG TAB PO SCH (16:35)
[2020-10-28] MEDS ORDERED: Enoxaparin Sodium 100 MG/ML SYRINGE SC SCH (18:00)
[2020-10-28] MEDS: HumaLOG 300 UNITS/3 ML VIAL SC PRN (18:51)
[2020-10-28] MEDS ORDERED: Lantus 1000 UNITS/10 ML VIAL SC SCH (21:00)
[2020-10-28] MEDS ORDERED: Atorvastatin Calcium 40 MG TAB PO SCH (21:00)
[2020-10-28 22:24] LABS: SARS-CoV-2 PCR by NAA Not Detected (NotDetected)
[2020-10-29] MEDS ORDERED: Morphine 2 MG/ML VIAL SLOW IVP PRN (00:15)
[2020-10-29] MEDS ORDERED: HumaLOG 300 UNITS/3 ML VIAL SC PRN (01:10)
[2020-10-29] MEDS ORDERED: Dextrose 50% Abboject 50 ML SYRINGE SLOW IVP PRN (01:10)
[2020-10-29] MEDS ORDERED: Dextrose 5% in Water 1,000 ML IV PRN (01:10)
[2020-10-29] MEDS: Nitroglycerin 2% Ointment 1 INCH/1 GM Packet TOP SCH ×3 (01:20→16:13)
[2020-10-29 05:04] LABS: #Basophils 0.1 thou/uL (0.0-0.2); #Eosinphils 0.3 thou/uL (0.0-0.7); #Lymphocytes 3.7 thou/uL (1.20-3.40); #Monocytes 0.7 thou/uL (0.11-0.59); #Neutrophils 3.7 thou/uL (1.40-6.50); %Basophils 0.9 % (0.0-1.0); %Eosinophils 3.7 % (0.0-10.0); %Lymphocytes 43.9 % (21.0-51.0); %Monocytes 7.9 % (0.0-10.0); %Neutrophils 43.6 % (42.0-75.0); Hemoglobin 13.2 g/dL (14.0-18.0); Mean Corpuscular HGB CONC 33.8 g/dL (32.0-36.0); Mean Corpuscular Hemoglobin 29.5 pg (27.0-31.0); Mean Corpuscular Volume 87.3 fL (78.0-98.0); Mean Platelet Volume 8.5 fL (7.4-10.4); Platelet Count 185 thou/uL (130-400); RBC Distribution Width 12.2 % (11.5-14.5); Red Blood Cell (RBC) Count 4.47 mill/uL (4.70-6.10); White Blood Cell (WBC) Count 8.4 thou/uL (4.8-10.8)
[2020-10-29 05:07] LABS: Hemoglobin A1c 12.8 % (4.0-6.0)
[2020-10-29 05:17] LABS: Triglycerides 1103 mg/dL (Less than 150)
[2020-10-29 05:19] LABS: ALT (SGPT) 17 U/L (8-55); AST (SGOT) 14 U/L (5-34); Albumin 2.9 g/dL (3.5-5.0); Alkaline Phosphatase 87 U/L (40-110); Anion Gap 12 mmol/L (10-20); BUN (Urea Nitrogen) 15 mg/dL (8.9-20.6); Bilirubin, Total 0.4 mg/dL (0.2-1.2); Calc. Creatinine Clearance 109 mL/min (70-130); Calcium 8.3 mg/dL (7.8-10.44); Carbon Dioxide 24 mmol/L (22-29); Chloride 103 mmol/L (98-107); Cholesterol 259 mg/dl (< 200 Desired); Globulin 2.9 g/dL (2.4-3.5); Glucose 229 mg/dL (70-105); HDL Cholesterol 26 mg/dL (>60 Neg Risk); Magnesium 1.6 mg/dL (1.6-2.6); Potassium 3.8 mmol/L (3.5-5.1); Protein, Total 5.8 g/dL (6.0-8.3); Sodium 135 mmol/L (136-145)
[2020-10-29 07:55] VITALS: BP 182/88; TEMP 97.7
[2020-10-29] MEDS ORDERED: Enoxaparin Sodium 40 MG/0.4 ML SYRINGE SC SCH (09:00)
[2020-10-29] MEDS ORDERED: Aspirin Chewable 81 MG TAB PO SCH (09:00)
[2020-10-29] MEDS ORDERED: Clopidogrel Bisulfate 75 MG TAB PO SCH (09:00)
[2020-10-29] MEDS ORDERED: Pantoprazole 40 MG VIAL IVP SCH (09:00)
[2020-10-29] MEDS: Sucralfate 1 GM/10 ML UDCUP PO SCH ×3 (10:51→16:13)
[2020-10-29] MEDS: Carvedilol 25 MG TAB PO SCH ×2 (10:51→16:12)
[2020-10-29] MEDS ORDERED: Regadenoson 0.4 MG/5 ML SYRINGE ONE (12:07)
[2020-10-29] MEDS: HumaLOG 300 UNITS/3 ML VIAL SC PRN (12:52)
[2020-10-29] MEDS ORDERED: Clopidogrel Bisulfate 300 MG TAB PO SCH (13:15)
[2020-10-30] MEDS ORDERED: Clopidogrel Bisulfate 75 MG TAB PO SCH (09:00)
== END 2020-10-29 17:30 | disposition home or self-care (01) ==
LOC: ERS 07:19 → ERHOLD 10:46 → 2NO 13:02
PROVIDERS: ADMIT Internal Medicine; ATTEND Internal Medicine
DX: R07.89 Other chest pain (principal); E78.5 Hyperlipidemia, unspecified; I25.5 Ischemic cardiomyopathy; I25.10 Atherosclerotic heart disease of native coronary artery without angina pectoris; J32.9 Chronic sinusitis, unspecified; E11.65 Type 2 diabetes mellitus with hyperglycemia; I13.0 Hypertensive heart and chronic kidney disease with heart failure and stage 1 through stage 4 chronic kidney disease, or unspecified chronic kidney disease; E11.22 Type 2 diabetes mellitus with diabetic chronic kidney disease; N18.9 Chronic kidney disease, unspecified; I50.20 Unspecified systolic (congestive) heart failure; E78.00 Pure hypercholesterolemia, unspecified; E66.9 Obesity, unspecified; Z68.30 Body mass index [BMI] 30.0-30.9, adult; Z87.891 Personal history of nicotine dependence; Z79.4 Long term (current) use of insulin; Z79.82 Long term (current) use of aspirin; Z79.899 Other long term (current) drug therapy; Z91.040 Latex allergy status; Z91.14 Patient's other noncompliance with medication regimen; Z95.5 Presence of coronary angioplasty implant and graft; Z95.810 Presence of automatic (implantable) cardiac defibrillator; Z20.822 Contact with and (suspected) exposure to COVID-19
CPT/HCPCS: 36415; 36416; 71045; 71275; 78452; 80053; 80061; 83036; 83690; 83735; 83880; 84484; 85025; 85379; 93005; 93017; 94760; 96372; 96374; 96375; 96376; A9500; C9113; G0378; J1650; J1815; J2270; J2405; J2785; J7050; Q9967; U0003; U0005

== ENCOUNTER 2020-12-30 06:56 | Observation (INO) | payer BC ==
[2020-12-30] MEDS ORDERED: Acetaminophen 500 MG TAB ONE (07:27)
[2020-12-30] MEDS ORDERED: Albuterol 200 PUFF (6.7GM INHALER) ONE (07:35)
[2020-12-30] MEDS ORDERED: Ketorolac Tromethamine 30 MG/ML VIAL ONE (07:36)
[2020-12-30 07:46] LABS: #Basophils 0.1 thou/uL (0.0-0.2); #Eosinphils 0.3 thou/uL (0.0-0.7); #Lymphocytes 2.8 thou/uL (1.20-3.40); #Monocytes 0.9 thou/uL (0.11-0.59); #Neutrophils 4.6 thou/uL (1.40-6.50); %Basophils 1.3 % (0.0-1.0); %Lymphocytes 32.4 % (21.0-51.0); %Monocytes 10.2 % (0.0-10.0); %Neutrophils 53.1 % (42.0-75.0); Hemoglobin 16.5 g/dL (14.0-18.0); Mean Corpuscular HGB CONC 36.4 g/dL (32.0-36.0); Mean Corpuscular Hemoglobin 31.1 pg (27.0-31.0); Mean Corpuscular Volume 85.4 fL (78.0-98.0); Mean Platelet Volume 8.5 fL (7.4-10.4); Platelet Count 248 thou/uL (130-400); RBC Distribution Width 12.4 % (11.5-14.5); White Blood Cell (WBC) Count 8.7 thou/uL (4.8-10.8)
[2020-12-30 07:53] LABS: ALT (SGPT) 19 U/L (8-55); AST (SGOT) 13 U/L (5-34); Albumin 3.3 g/dL (3.5-5.0); Alkaline Phosphatase 95 U/L (40-110); Anion Gap 16 mmol/L (10-20); BUN (Urea Nitrogen) 20 mg/dL (8.9-20.6); Bilirubin, Total 0.4 mg/dL (0.2-1.2); Calc. Creatinine Clearance 0 mL/min (70-130); Calcium 9.6 mg/dL (7.8-10.44); Carbon Dioxide 24 mmol/L (22-29); Chloride 95 mmol/L (98-107); Globulin 4.3 g/dL (2.4-3.5); Glucose 501 mg/dL (70-105); Potassium 3.6 mmol/L (3.5-5.1); Protein, Total 7.6 g/dL (6.0-8.3); Sodium 131 mmol/L (136-145)
[2020-12-30 08:57] LABS: SARS-CoV-2 NAA Rapid Test Not Detected (NotDetected)
[2020-12-30] MEDS ORDERED: Aspirin Chewable 81 MG TAB ONE ×2 (09:06→09:10)
[2020-12-30 10:09] LABS: Bacteria/HPF None Seen HPF (None Seen); Bilirubin Negative (Negative); Blood, Urine 2+ (Negative); Clarity Clear (Clear); Glucose, Urine (Dipstick) Greater than 1000 mg/dL (Negative); Ketone, Urine Negative (Negative); Leukocyte Negative Leu/uL (Negative); Nitrite Negative (Negative); Protein, Urine (Dipstick) 600 mg/dL (Neg-Trace); Specific Gravity, Urine 1.027 (1.002-1.036); Squamous Epithelial None Seen HPF (0-3); Urobilinogen Normal mg/dL (Less than 2); WBC/HPF 0-3 HPF (0-3); pH, Urine 6.5 (5.0-9.0)
[2020-12-30] MEDS ORDERED: Labetalol HCl 100 MG/20 ML VIAL ONE (10:43)
[2020-12-30] MEDS ORDERED: Ondansetron PF 4 MG/2 ML Vial ONE ×2 (10:43→19:10)
[2020-12-30] MEDS ORDERED: hydrALAZINE 20 MG/ML VIAL SLOW IVP PRN (10:48)
[2020-12-30] MEDS ORDERED: Dextrose 5% in Water 1,000 ML IV PRN (10:48)
[2020-12-30] MEDS ORDERED: Sodium Chloride 0.65% Nasal 44 ML BOT EA NARE PRN (10:48)
[2020-12-30] MEDS ORDERED: Labetalol HCl 100 MG/20 ML VIAL SLOW IVP PRN (10:48)
[2020-12-30] MEDS ORDERED: Acetaminophen 500 MG TAB PO PRN (10:48)
[2020-12-30] MEDS ORDERED: HYDROcodone/Acetaminophen 5/325 mg Tablet PO PRN ×2 (10:48)
[2020-12-30] MEDS ORDERED: GUAIFENESIN SF SOLN 200 MG/10 ML UDCUP PO PRN (10:48)
[2020-12-30] MEDS ORDERED: Ondansetron ODT 4 MG TAB PO PRN (10:48)
[2020-12-30] MEDS ORDERED: Dextrose 50% Abboject 50 ML SYRINGE SLOW IVP PRN (10:48)
[2020-12-30] MEDS ORDERED: Cepastat Lozenges 1 LOZ PO PRN (10:48)
[2020-12-30 10:57] LABS: Troponin I 0.025 ng/mL (< 0.028)
[2020-12-30] MEDS ORDERED: HumuLIN 70/30 (300 UNITS/3 ML VIAL) SC SCH (11:00)
[2020-12-30] MEDS: Nitroglycerin 2% Ointment 1 INCH/1 GM Packet TOP SCH ×2 (12:17→21:18)
[2020-12-30 13:29] VITALS: BMI 30.4
[2020-12-30] MEDS ORDERED: Clopidogrel Bisulfate 300 MG TAB PO SCH (13:45)
[2020-12-30 14:25] LABS: Magnesium 1.7 mg/dL (1.6-2.6)
[2020-12-30] MEDS ORDERED: Magnesium 2 GM/50 ML 2 GM in Premix Bag 1 BAG IVPB SCH (16:15)
[2020-12-30] MEDS: HumaLOG 300 UNITS/3 ML VIAL SC PRN ×2 (16:47→21:15)
[2020-12-30] MEDS: Ondansetron PF 4 MG/2 ML Vial IVP PRN (19:13)
[2020-12-30] MEDS ORDERED: Atorvastatin Calcium 40 MG TAB PO SCH (21:00)
[2020-12-30] MEDS: Sacubitril 49 MG/Valsartan 51 MG TABLET PO SCH (21:19)
[2020-12-31 05:24] LABS: #Basophils 0.1 thou/uL (0.0-0.2); #Eosinphils 0.2 thou/uL (0.0-0.7); #Lymphocytes 2.7 thou/uL (1.20-3.40); #Monocytes 0.9 thou/uL (0.11-0.59); #Neutrophils 5.5 thou/uL (1.40-6.50); %Basophils 0.9 % (0.0-1.0); %Eosinophils 2.4 % (0.0-10.0); %Lymphocytes 28.5 % (21.0-51.0); %Monocytes 9.4 % (0.0-10.0); %Neutrophils 58.7 % (42.0-75.0); Hemoglobin 13.4 g/dL (14.0-18.0); Mean Corpuscular HGB CONC 35.5 g/dL (32.0-36.0); Mean Corpuscular Hemoglobin 30.7 pg (27.0-31.0); Mean Corpuscular Volume 86.6 fL (78.0-98.0); Mean Platelet Volume 8.4 fL (7.4-10.4); Platelet Count 187 thou/uL (130-400); RBC Distribution Width 12.3 % (11.5-14.5); Red Blood Cell (RBC) Count 4.37 mill/uL (4.70-6.10); White Blood Cell (WBC) Count 9.3 thou/uL (4.8-10.8)
[2020-12-31 05:43] LABS: Anion Gap 13 mmol/L (10-20); BUN (Urea Nitrogen) 21 mg/dL (8.9-20.6); Calc. Creatinine Clearance 93 mL/min (70-130); Calcium 8.6 mg/dL (7.8-10.44); Carbon Dioxide 28 mmol/L (22-29); Cardiac Risk 12.4 (Less than 4.5); Chloride 98 mmol/L (98-107); Cholesterol 385 mg/dl (< 200 Desired); Glucose 275 mg/dL (70-105); HDL Cholesterol 31 mg/dL (>60 Neg Risk); Potassium 3.3 mmol/L (3.5-5.1); Sodium 136 mmol/L (136-145)
[2020-12-31 05:52] LABS: Triglycerides 1421 mg/dL (Less than 150)
[2020-12-31] MEDS: HumaLOG 300 UNITS/3 ML VIAL SC PRN ×4 (05:57→20:55)
[2020-12-31] MEDS: Nitroglycerin 2% Ointment 1 INCH/1 GM Packet TOP SCH (06:00)
[2020-12-31] MEDS ORDERED: Potassium Chloride 20 MEQ TAB PO SCH (08:15)
[2020-12-31] MEDS: Sacubitril 49 MG/Valsartan 51 MG TABLET PO SCH ×2 (08:50→20:58)
[2020-12-31] MEDS: Aspirin 325 mg Enteric Coated Tablet PO SCH (08:50)
[2020-12-31 08:51] LABS: Hemoglobin A1c 13.6 % (4.0-6.0)
[2020-12-31] MEDS: Clopidogrel Bisulfate 75 MG TAB PO SCH (08:51)
[2020-12-31 08:52] LABS: Magnesium 1.9 mg/dL (1.6-2.6)
[2020-12-31] MEDS: Amlodipine 5 MG TAB PO SCH (08:52)
[2020-12-31] MEDS: Ondansetron PF 4 MG/2 ML Vial IVP PRN ×2 (08:53→16:47)
[2020-12-31] MEDS ORDERED: FLU VACC QS2021-22(6MOS UP)/PF 60 MCG/0.5 ML SYRINGE IM ONE (09:00)
[2020-12-31] MEDS ORDERED: Loperamide HCl 2 MG CAP PO SCH (09:43)
[2020-12-31] MEDS ORDERED: Loperamide HCl 2 MG CAP PO PRN (09:43)
[2020-12-31] MEDS ORDERED: Magnesium 2 GM/50 ML 2 GM in Premix Bag 1 BAG IVPB SCH (09:45)
[2020-12-31] MEDS ORDERED: Atorvastatin Calcium 40 MG TAB PO SCH (21:00)
[2020-12-31] MEDS ORDERED: HumuLIN 70/30 (300 UNITS/3 ML VIAL) SC SCH (21:00)
[2021-01-01 04:26] LABS: #Basophils 0.1 thou/uL (0.0-0.2); #Eosinphils 0.3 thou/uL (0.0-0.7); #Lymphocytes 2.5 thou/uL (1.20-3.40); #Monocytes 0.8 thou/uL (0.11-0.59); #Neutrophils 4.5 thou/uL (1.40-6.50); %Basophils 0.9 % (0.0-1.0); %Eosinophils 3.6 % (0.0-10.0); %Lymphocytes 30.3 % (21.0-51.0); %Monocytes 9.3 % (0.0-10.0); %Neutrophils 55.9 % (42.0-75.0); Hemoglobin 13.7 g/dL (14.0-18.0); Mean Corpuscular HGB CONC 35.4 g/dL (32.0-36.0); Mean Corpuscular Hemoglobin 30.7 pg (27.0-31.0); Mean Corpuscular Volume 86.7 fL (78.0-98.0); Mean Platelet Volume 8.2 fL (7.4-10.4); Platelet Count 203 thou/uL (130-400); RBC Distribution Width 12.3 % (11.5-14.5); Red Blood Cell (RBC) Count 4.46 mill/uL (4.70-6.10); White Blood Cell (WBC) Count 8.1 thou/uL (4.8-10.8)
[2021-01-01 04:49] LABS: Anion Gap 10 mmol/L (10-20); BUN (Urea Nitrogen) 17 mg/dL (8.9-20.6); Calc. Creatinine Clearance 110 mL/min (70-130); Calcium 8.6 mg/dL (7.8-10.44); Carbon Dioxide 27 mmol/L (22-29); Chloride 99 mmol/L (98-107); Glucose 280 mg/dL (70-105); Potassium 3.6 mmol/L (3.5-5.1); Sodium 132 mmol/L (136-145)
[2021-01-01] MEDS: HumaLOG 300 UNITS/3 ML VIAL SC PRN (05:36)
[2021-01-01 07:17] VITALS: TEMP 98.2
[2021-01-01] MEDS: Aspirin 325 mg Enteric Coated Tablet PO SCH (07:49)
[2021-01-01] MEDS: Sacubitril 49 MG/Valsartan 51 MG TABLET PO SCH (07:49)
[2021-01-01] MEDS: Amlodipine 5 MG TAB PO SCH (07:50)
[2021-01-01] MEDS: Clopidogrel Bisulfate 75 MG TAB PO SCH (07:50)
[2021-01-01] MEDS ORDERED: Carvedilol 25 MG TAB PO SCH (08:00)
[2021-01-01 08:41] VITALS: BP 137/76
[2021-01-01] MEDS ORDERED: Ezetimibe 10 MG TAB PO SCH (09:00)
[2021-01-01] MEDS ORDERED: HumuLIN 70/30 (300 UNITS/3 ML VIAL) SC SCH (09:00)
[2021-01-01] MEDS ORDERED: Potassium Chloride 20 MEQ TAB PO SCH (09:15)
== END 2021-01-01 10:48 | disposition home or self-care (01) ==
LOC: ERS 06:56 → 2NO 10:09
PROVIDERS: ADMIT Hospitalist; ATTEND Internal Medicine
DX: R07.89 Other chest pain (principal); E11.65 Type 2 diabetes mellitus with hyperglycemia; I13.0 Hypertensive heart and chronic kidney disease with heart failure and stage 1 through stage 4 chronic kidney disease, or unspecified chronic kidney disease; E11.22 Type 2 diabetes mellitus with diabetic chronic kidney disease; N18.9 Chronic kidney disease, unspecified; I50.20 Unspecified systolic (congestive) heart failure; D63.1 Anemia in chronic kidney disease; E78.2 Mixed hyperlipidemia; I25.10 Atherosclerotic heart disease of native coronary artery without angina pectoris; R68.83 Chills (without fever); R11.0 Nausea; I25.5 Ischemic cardiomyopathy; E78.00 Pure hypercholesterolemia, unspecified; Z91.14 Patient's other noncompliance with medication regimen; Z79.4 Long term (current) use of insulin; Z79.82 Long term (current) use of aspirin; Z79.84 Long term (current) use of oral hypoglycemic drugs; Z79.899 Other long term (current) drug therapy; Z91.040 Latex allergy status; Z95.5 Presence of coronary angioplasty implant and graft; Z95.810 Presence of automatic (implantable) cardiac defibrillator; Z20.822 Contact with and (suspected) exposure to COVID-19
CPT/HCPCS: 0240U; 36415; 36416; 70450; 71045; 72125; 80048; 80053; 80061; 81003; 81015; 82553; 83036; 83735; 84484; 85025; 93005; 96375; 96376; G0378; J0360; J1815; J1885; J2405; J3475

== ENCOUNTER 2021-01-03 17:16 | Inpatient (IN) | payer BC ==
[2021-01-03 17:44] LABS: #Basophils 0.1 thou/uL (0.0-0.2); #Eosinphils 0.3 thou/uL (0.0-0.7); #Lymphocytes 2.8 thou/uL (1.20-3.40); #Monocytes 0.7 thou/uL (0.11-0.59); #Neutrophils 5.5 thou/uL (1.40-6.50); %Basophils 0.9 % (0.0-1.0); %Eosinophils 2.7 % (0.0-10.0); %Monocytes 7.4 % (0.0-10.0); Hemoglobin 15.1 g/dL (14.0-18.0); Mean Corpuscular HGB CONC 36.8 g/dL (32.0-36.0); Mean Platelet Volume 8.2 fL (7.4-10.4); Platelet Count 225 thou/uL (130-400); RBC Distribution Width 12.4 % (11.5-14.5); White Blood Cell (WBC) Count 9.2 thou/uL (4.8-10.8)
[2021-01-03 18:02] LABS: ALT (SGPT) 22 U/L (8-55); AST (SGOT) 16 U/L (5-34); Albumin 3.3 g/dL (3.5-5.0); Alkaline Phosphatase 93 U/L (40-110); Anion Gap 14 mmol/L (10-20); BUN (Urea Nitrogen) 19 mg/dL (8.9-20.6); Bilirubin, Total 0.6 mg/dL (0.2-1.2); Calc. Creatinine Clearance 0 mL/min (70-130); Calcium 8.9 mg/dL (7.8-10.44); Carbon Dioxide 23 mmol/L (22-29); Chloride 99 mmol/L (98-107); Globulin 3.3 g/dL (2.4-3.5); Glucose 464 mg/dL (70-105); Potassium 3.7 mmol/L (3.5-5.1); Protein, Total 6.6 g/dL (6.0-8.3); Sodium 132 mmol/L (136-145)
[2021-01-03] MEDS ORDERED: Nitroglycerin 0.4 MG TAB 1 EACH ONE ×2 (18:49→18:53)
[2021-01-03] MEDS ORDERED: Enoxaparin Sodium 30 MG/0.3 ML SYRINGE ONE (18:49)
[2021-01-03] MEDS ORDERED: Ondansetron ODT 4 MG TAB PO PRN (21:29)
[2021-01-03] MEDS ORDERED: Ondansetron PF 4 MG/2 ML Vial IVP PRN ×2 (21:29→21:50)
[2021-01-03 21:45] LABS: Troponin I 0.018 ng/mL (< 0.028)
[2021-01-03] MEDS ORDERED: Acetaminophen 325 MG TAB PO PRN (21:50)
[2021-01-03] MEDS ORDERED: Nitroglycerin 0.4 MG TAB (25 Tab Bottle) SL PRN (21:50)
[2021-01-03] MEDS ORDERED: Dextrose 5% in Water 1,000 ML IV PRN (21:53)
[2021-01-03] MEDS ORDERED: Dextrose 50% Abboject 50 ML SYRINGE SLOW IVP PRN (21:53)
[2021-01-03 21:54] VITALS: BMI 30.7
[2021-01-03] MEDS ORDERED: Enoxaparin Sodium 80 MG/0.8 ML SYRINGE SC SCH (22:15)
[2021-01-03] MEDS ORDERED: Sodium Chloride 0.9% 500 ML IV SCH (23:00)
[2021-01-03] MEDS: HumaLOG 300 UNITS/3 ML VIAL SC PRN (23:42)
[2021-01-04 00:35] LABS: Troponin I 0.011 ng/mL (< 0.028)
[2021-01-04 05:07] LABS: #Basophils 0.1 thou/uL (0.0-0.2); #Eosinphils 0.2 thou/uL (0.0-0.7); #Lymphocytes 2.9 thou/uL (1.20-3.40); #Monocytes 0.8 thou/uL (0.11-0.59); #Neutrophils 4.3 thou/uL (1.40-6.50); %Basophils 0.7 % (0.0-1.0); %Eosinophils 2.8 % (0.0-10.0); %Lymphocytes 35.1 % (21.0-51.0); %Monocytes 9.7 % (0.0-10.0); %Neutrophils 51.7 % (42.0-75.0); Hemoglobin 13.4 g/dL (14.0-18.0); Mean Corpuscular HGB CONC 35.2 g/dL (32.0-36.0); Mean Corpuscular Hemoglobin 30.7 pg (27.0-31.0); Mean Corpuscular Volume 87.3 fL (78.0-98.0); Mean Platelet Volume 8.2 fL (7.4-10.4); Platelet Count 178 thou/uL (130-400); RBC Distribution Width 12.3 % (11.5-14.5); Red Blood Cell (RBC) Count 4.37 mill/uL (4.70-6.10); White Blood Cell (WBC) Count 8.4 thou/uL (4.8-10.8)
[2021-01-04 05:29] LABS: Anion Gap 9 mmol/L (10-20); BUN (Urea Nitrogen) 18 mg/dL (8.9-20.6); Calc. Creatinine Clearance 111 mL/min (70-130); Carbon Dioxide 26 mmol/L (22-29); Chloride 103 mmol/L (98-107); Glucose 272 mg/dL (70-105); Potassium 3.3 mmol/L (3.5-5.1); Sodium 135 mmol/L (136-145)
[2021-01-04] MEDS: HumaLOG 300 UNITS/3 ML VIAL SC PRN ×4 (06:18→20:00)
[2021-01-04] MEDS: Carvedilol 25 MG TAB PO SCH ×2 (08:29→16:36)
[2021-01-04] MEDS: Aspirin Chewable 81 MG TAB PO SCH (08:29)
[2021-01-04] MEDS: Clopidogrel Bisulfate 75 MG TAB PO SCH (08:29)
[2021-01-04] MEDS ORDERED: Potassium Chloride 20 MEQ TAB PO SCH (08:45)
[2021-01-04] MEDS ORDERED: FLU VACC QS2021-22(6MOS UP)/PF 60 MCG/0.5 ML SYRINGE IM ONE (09:00)
[2021-01-04] MEDS ORDERED: INSULN ASP SC SCH ×2 (09:00→21:00)
[2021-01-04] MEDS ORDERED: Non-Formulary Item 1 EACH (Sacubitril/Valsartan [Entresto 97 Mg-103 Mg Tablet] 1 EACH Tab PO SCH (09:00)
[2021-01-04] MEDS ORDERED: [UNRECOGNIZED DRUG - OTHER] SC SCH ×2 (09:00→21:00)
[2021-01-04] MEDS ORDERED: INSULIN ASPART PROT SC SCH ×2 (09:00→21:00)
[2021-01-04] MEDS ORDERED: Enoxaparin Sodium 40 MG/0.4 ML SYRINGE SC SCH (09:00)
[2021-01-04] MEDS: Amlodipine 5 MG TAB PO SCH (09:17)
[2021-01-04] MEDS: Sacubitril 49 MG/Valsartan 51 MG TABLET PO SCH ×2 (09:19→20:00)
[2021-01-04] MEDS: HumuLIN 70/30 (300 UNITS/3 ML VIAL) SC SCH ×2 (09:20→19:58)
[2021-01-04] MEDS: Labetalol HCl 100 MG/20 ML VIAL SLOW IVP PRN ×2 (11:49→20:10)
[2021-01-04] MEDS ORDERED: Communication Order-Pharmacy FS SCH (14:00)
[2021-01-04] MEDS: Atorvastatin Calcium 40 MG TAB PO SCH (19:57)
[2021-01-04] MEDS ORDERED: Nitroglycerin 2% Ointment 1 INCH/1 GM Packet TOP SCH (22:05)
[2021-01-04] MEDS ORDERED: hydrALAZINE 20 MG/ML VIAL SLOW IVP SCH (23:48)
[2021-01-05] MEDS ORDERED: hydrALAZINE 20 MG/ML VIAL SLOW IVP PRN (01:24)
[2021-01-05 04:38] LABS: #Basophils 0.1 thou/uL (0.0-0.2); #Eosinphils 0.2 thou/uL (0.0-0.7); #Lymphocytes 2.5 thou/uL (1.20-3.40); #Monocytes 0.7 thou/uL (0.11-0.59); #Neutrophils 3.8 thou/uL (1.40-6.50); %Basophils 1.1 % (0.0-1.0); %Lymphocytes 34.2 % (21.0-51.0); %Monocytes 9.6 % (0.0-10.0); %Neutrophils 52.1 % (42.0-75.0); Hemoglobin 13.4 g/dL (14.0-18.0); Mean Corpuscular HGB CONC 33.7 g/dL (32.0-36.0); Mean Corpuscular Hemoglobin 29.7 pg (27.0-31.0); Mean Corpuscular Volume 88.2 fL (78.0-98.0); Mean Platelet Volume 8.2 fL (7.4-10.4); Platelet Count 172 thou/uL (130-400); RBC Distribution Width 12.3 % (11.5-14.5); Red Blood Cell (RBC) Count 4.52 mill/uL (4.70-6.10); White Blood Cell (WBC) Count 7.3 thou/uL (4.8-10.8)
[2021-01-05 04:58] LABS: Anion Gap 12 mmol/L (10-20); BUN (Urea Nitrogen) 16 mg/dL (8.9-20.6); Calc. Creatinine Clearance 131 mL/min (70-130); Calcium 8.4 mg/dL (7.8-10.44); Carbon Dioxide 22 mmol/L (22-29); Chloride 102 mmol/L (98-107); Glucose 206 mg/dL (70-105); Magnesium 1.6 mg/dL (1.6-2.6); Potassium 3.1 mmol/L (3.5-5.1); Sodium 133 mmol/L (136-145)
[2021-01-05] MEDS: HumaLOG 300 UNITS/3 ML VIAL SC PRN ×4 (07:04→20:28)
[2021-01-05] MEDS: Clopidogrel Bisulfate 75 MG TAB PO SCH (08:32)
[2021-01-05] MEDS: Aspirin Chewable 81 MG TAB PO SCH (08:32)
[2021-01-05] MEDS: Carvedilol 25 MG TAB PO SCH ×2 (08:32→17:31)
[2021-01-05] MEDS: Sacubitril 49 MG/Valsartan 51 MG TABLET PO SCH ×2 (08:32→20:26)
[2021-01-05] MEDS: Amlodipine 5 MG TAB PO SCH (08:33)
[2021-01-05] MEDS: HumuLIN 70/30 (300 UNITS/3 ML VIAL) SC SCH ×2 (08:40→20:27)
[2021-01-05] MEDS ORDERED: Magnesium 2 GM/50 ML 2 GM in Premix Bag 1 BAG IVPB SCH ×2 (08:45→17:15)
[2021-01-05] MEDS ORDERED: Potassium Chloride 20 MEQ TAB PO SCH (09:00)
[2021-01-05] MEDS ORDERED: Enoxaparin Sodium 40 MG/0.4 ML SYRINGE SC SCH (09:00)
[2021-01-05] MEDS: Atorvastatin Calcium 40 MG TAB PO SCH (20:26)
[2021-01-06] MEDS: Aspirin Chewable 81 MG TAB PO SCH (05:37)
[2021-01-06] MEDS: Carvedilol 25 MG TAB PO SCH ×2 (05:37→16:09)
[2021-01-06] MEDS: Clopidogrel Bisulfate 75 MG TAB PO SCH (05:37)
[2021-01-06] MEDS: Sacubitril 49 MG/Valsartan 51 MG TABLET PO SCH (05:38)
[2021-01-06] MEDS: Amlodipine 5 MG TAB PO SCH (05:38)
[2021-01-06] MEDS ORDERED: Sodium Chloride 0.9% 1,000 ML IV SCH (06:00)
[2021-01-06 08:04] LABS: Anion Gap 10 mmol/L (10-20); BUN (Urea Nitrogen) 19 mg/dL (8.9-20.6); Calc. Creatinine Clearance 116 mL/min (70-130); Calcium 9.1 mg/dL (7.8-10.44); Carbon Dioxide 26 mmol/L (22-29); Chloride 103 mmol/L (98-107); Glucose 289 mg/dL (70-105); Magnesium 1.8 mg/dL (1.6-2.6); Potassium 3.9 mmol/L (3.5-5.1); Sodium 135 mmol/L (136-145)
[2021-01-06] MEDS ORDERED: Lidocaine 1% (PF) 30 ML VIAL ONE (08:43)
[2021-01-06] MEDS ORDERED: HumuLIN 70/30 (300 UNITS/3 ML VIAL) SC SCH ×2 (09:00→21:00)
[2021-01-06] MEDS ORDERED: Iopamidol 370 76% 100 ML VIAL ONE (09:14)
[2021-01-06] MEDS ORDERED: Fentanyl 100 MCG/2 ML VIAL ONE (09:22)
[2021-01-06] MEDS ORDERED: Midazolam HCl 2 mg/2 ml Vial ONE (09:22)
[2021-01-06] MEDS ORDERED: Acetaminophen/Codeine 30-300mg Tablet PO PRN ×2 (10:20)
[2021-01-06] MEDS ORDERED: Nitroglycerin 0.4 MG TAB (25 Tab Bottle) SL PRN (10:20)
[2021-01-06] MEDS ORDERED: Sodium Chloride 0.9% 200 ML IV PRN (10:20)
[2021-01-06] MEDS: HumaLOG 300 UNITS/3 ML VIAL SC PRN ×2 (12:45→16:08)
[2021-01-06 15:38] VITALS: TEMP 97.5
[2021-01-06 16:07] VITALS: BP 158/96
[2021-01-07] MEDS ORDERED: Spironolactone 25 MG TAB PO SCH (08:00)
== END 2021-01-06 17:35 | disposition home or self-care (01) | DRG 287 ==
LOC: ERS 17:16 → 2SW 19:55 → OBSVTOIN 01-05 18:53
PROVIDERS: ADMIT Internal Medicine; ATTEND Nurse Practitioner Family
PROC: 4A023N7 Measurement of Cardiac Sampling and Pressure, Left Heart, Percutaneous Approach (ICD-10-PCS; principal; 2021-01-06)
PROC: B2111ZZ Fluoroscopy of Multiple Coronary Arteries using Low Osmolar Contrast (ICD-10-PCS; 2021-01-06)
PROC: B2151ZZ Fluoroscopy of Left Heart using Low Osmolar Contrast (ICD-10-PCS; 2021-01-06)
DX: I95.1 Orthostatic hypotension (principal); N17.9 Acute kidney failure, unspecified; I50.22 Chronic systolic (congestive) heart failure; I25.110 Atherosclerotic heart disease of native coronary artery with unstable angina pectoris; R07.9 Chest pain, unspecified; E11.65 Type 2 diabetes mellitus with hyperglycemia; I11.0 Hypertensive heart disease with heart failure; E78.2 Mixed hyperlipidemia; E87.6 Hypokalemia; I16.0 Hypertensive urgency; E83.42 Hypomagnesemia; Z91.14 Patient's other noncompliance with medication regimen; Z95.810 Presence of automatic (implantable) cardiac defibrillator; Z91.040 Latex allergy status; Z79.82 Long term (current) use of aspirin; Z79.84 Long term (current) use of oral hypoglycemic drugs; Z79.4 Long term (current) use of insulin; Z79.899 Other long term (current) drug therapy
CPT/HCPCS: 36415; 36416; 71045; 80048; 80053; 83735; 84443; 84484; 85025; 93005; 93458; 96372; 96374; 96375; 96376; 97139; 99152; G0378; J0360; J1650; J1815; J2001; J2250; J3010; J3475; J7030; J7050; Q9967

== ENCOUNTER 2021-03-30 19:38 | Emergency (ER) | payer BC, SELFPAY ==
[2021-03-30] MEDS ORDERED: Ondansetron ODT 4 MG TAB ONE (20:26)
[2021-03-30] MEDS ORDERED: Acetaminophen 325 MG TAB ONE (20:26)
[2021-03-30 20:31] LABS: #Basophils 0.1 thou/uL (0.0-0.2); #Eosinphils 0.4 thou/uL (0.0-0.7); #Lymphocytes 2.8 thou/uL (1.20-3.40); #Monocytes 0.8 thou/uL (0.11-0.59); #Neutrophils 5.7 thou/uL (1.40-6.50); %Basophils 0.8 % (0.0-1.0); %Lymphocytes 28.8 % (21.0-51.0); %Monocytes 7.8 % (0.0-10.0); %Neutrophils 58.6 % (42.0-75.0); Hemoglobin 15.1 g/dL (14.0-18.0); Mean Corpuscular HGB CONC 35.9 g/dL (32.0-36.0); Mean Corpuscular Hemoglobin 32.6 pg (27.0-31.0); Mean Corpuscular Volume 90.8 fL (78.0-98.0); Mean Platelet Volume 7.8 fL (7.4-10.4); Platelet Count 245 thou/uL (130-400); RBC Distribution Width 12.2 % (11.5-14.5); Red Blood Cell (RBC) Count 4.65 mill/uL (4.70-6.10); White Blood Cell (WBC) Count 9.7 thou/uL (4.8-10.8)
[2021-03-30 20:53] LABS: ALT (SGPT) 22 U/L (8-55); AST (SGOT) 17 U/L (5-34); Albumin 3.6 g/dL (3.5-5.0); Alkaline Phosphatase 115 U/L (40-110); Anion Gap 15 mmol/L (10-20); BUN (Urea Nitrogen) 13 mg/dL (8.9-20.6); Bilirubin, Total 0.5 mg/dL (0.2-1.2); Calc. Creatinine Clearance 0 mL/min (70-130); Calcium 8.9 mg/dL (7.8-10.44); Carbon Dioxide 24 mmol/L (22-29); Chloride 99 mmol/L (98-107); Globulin 3.3 g/dL (2.4-3.5); Glucose 350 mg/dL (70-105); Lipase 35 U/L (8-78); Potassium 3.4 mmol/L (3.5-5.1); Protein, Total 6.9 g/dL (6.0-8.3); Sodium 135 mmol/L (136-145)
[2021-03-30 21:27] LABS: SARS-CoV-2 NAA Rapid Test Not Detected (NotDetected)
== END 2021-03-30 22:54 | disposition home or self-care (01) ==
LOC: ERS 19:38
DX: A08.4 Viral intestinal infection, unspecified (principal); E87.6 Hypokalemia; N17.9 Acute kidney failure, unspecified; I25.10 Atherosclerotic heart disease of native coronary artery without angina pectoris; I10 Essential (primary) hypertension; E11.9 Type 2 diabetes mellitus without complications; E78.00 Pure hypercholesterolemia, unspecified; I25.2 Old myocardial infarction; Z79.4 Long term (current) use of insulin; Z87.891 Personal history of nicotine dependence; Z79.899 Other long term (current) drug therapy; Z79.84 Long term (current) use of oral hypoglycemic drugs; Z79.82 Long term (current) use of aspirin; Z20.822 Contact with and (suspected) exposure to COVID-19
CPT/HCPCS: 36415; 71045; 80053; 83690; 84484; 85025; 93005; Q0162; U0002

== ENCOUNTER 2021-08-19 09:20 | Inpatient (IN) | payer BC ==
[~2021-08-19 09:20] MED LIST changes: +ISOVUE-370 76%-LOCM 1 ML ONE; -Iopamidol-370 76% 500 ML 1 ML ONE
[2021-08-19 09:59] LABS: #Eosinphils 0.1 thou/uL (0.0-0.7); #Lymphocytes 0.6 thou/uL (1.20-3.40); #Monocytes 0.8 thou/uL (0.11-0.59); #Neutrophils 6.2 thou/uL (1.40-6.50); %Basophils 0.2 % (0.0-1.0); %Eosinophils 1.7 % (0.0-10.0); %Monocytes 10.8 % (0.0-10.0); %Neutrophils 79.3 % (42.0-75.0); Hemoglobin 14.1 g/dL (14.0-18.0); Mean Corpuscular Hemoglobin 31.2 pg (27.0-31.0); Mean Corpuscular Volume 86.7 fL (78.0-98.0); Mean Platelet Volume 8.3 fL (7.4-10.4); Platelet Count 156 thou/uL (130-400); RBC Distribution Width 12.3 % (11.5-14.5); Red Blood Cell (RBC) Count 4.51 mill/uL (4.70-6.10); White Blood Cell (WBC) Count 7.8 thou/uL (4.8-10.8)
[2021-08-19 10:24] LABS: ALT (SGPT) 24 U/L (8-55); AST (SGOT) 18 U/L (5-34); Albumin 2.9 g/dL (3.5-5.0); Alkaline Phosphatase 86 U/L (40-110); Anion Gap 13 mmol/L (10-20); BUN (Urea Nitrogen) 20 mg/dL (8.9-20.6); Bilirubin, Total 0.6 mg/dL (0.2-1.2); Calc. Creatinine Clearance 0 mL/min (70-130); Carbon Dioxide 24 mmol/L (22-29); Chloride 102 mmol/L (98-107); Estimated GFR 44; Globulin 3.4 g/dL (2.4-3.5); Glucose 347 mg/dL (70-105); Potassium 3.4 mmol/L (3.5-5.1); Protein, Total 6.3 g/dL (6.0-8.3); Sodium 136 mmol/L (136-145)
[2021-08-19 10:42] LABS: CKMB 0.7 ng/mL (0-6.6)
[2021-08-19] MEDS ORDERED: Bisacodyl 5 MG TAB PO PRN (11:49)
[2021-08-19] MEDS ORDERED: Senokot S 8.6-50 MG TAB PO PRN (11:49)
[2021-08-19] MEDS ORDERED: Dextrose 5% in Water 1,000 ML IV PRN (11:58)
[2021-08-19] MEDS ORDERED: Dextrose 50% Abboject 50 ML SYRINGE SLOW IVP PRN (11:58)
[2021-08-19] MEDS ORDERED: Nitroglycerin 0.4 MG TAB (25 Tab Bottle) SL PRN (11:59)
[2021-08-19] MEDS ORDERED: Heparin 10,000 UNITS/ 10 ML VIAL SLOW IVP SCH (12:00)
[2021-08-19] MEDS ORDERED: Heparin 25,000 units/D5W 500 ML IVPB SCH (12:00)
[2021-08-19] MEDS ORDERED: Potassium Bicarbonate/Cit Ac 20 MEQ TAB PO SCH (12:15)
[2021-08-19] MEDS ORDERED: Magnesium 2 GM/50 ML(in water) 2 GM in Premix Bag 1 BAG IVPB SCH (12:15)
[2021-08-19] MEDS ORDERED: Lactated Ringer's 500 ML IV SCH (12:15)
[2021-08-19] MEDS ORDERED: Lactated Ringer's 1,000 ML IV SCH (12:15)
[2021-08-19 12:36] LABS: Platelet Count 177 thou/uL (130-400)
[2021-08-19 13:05] LABS: Magnesium 1.7 mg/dL (1.6-2.6); Troponin I 0.103 ng/mL (< 0.028)
[2021-08-19 15:02] VITALS: BMI 29.9
[2021-08-19] MEDS: Heparin 5,000 UNITS/ML VIAL SC SCH ×2 (15:07→21:16)
[2021-08-19 15:26] LABS: Troponin I 0.131 ng/mL (< 0.028)
[2021-08-19] MEDS ORDERED: Naproxen 500 MG TAB PO SCH (16:45)
[2021-08-19] MEDS: Carvedilol 25 MG TAB PO SCH (17:26)
[2021-08-19] MEDS: HumaLOG 300 UNITS/3 ML VIAL SC PRN (17:29)
[2021-08-19] MEDS: Atorvastatin Calcium 40 MG TAB PO SCH (21:15)
[2021-08-19] MEDS: Sacubitril 49 MG/Valsartan 51 MG TABLET PO SCH (21:15)
[2021-08-19] MEDS: Tamsulosin HCl 0.4 MG CAP PO SCH (21:15)
[2021-08-19] MEDS: Famotidine 20 MG TAB PO SCH (21:16)
[2021-08-19] MEDS: HumuLIN 70/30 (300 UNITS/3 ML VIAL) SC SCH (22:41)
[2021-08-20 05:04] LABS: Hemoglobin 12.8 g/dL (14.0-18.0); Mean Corpuscular HGB CONC 35.6 g/dL (32.0-36.0); Mean Corpuscular Hemoglobin 31.3 pg (27.0-31.0); Mean Corpuscular Volume 87.9 fL (78.0-98.0); Mean Platelet Volume 8.1 fL (7.4-10.4); Platelet Count 146 thou/uL (130-400); RBC Distribution Width 12.4 % (11.5-14.5); Red Blood Cell (RBC) Count 4.11 mill/uL (4.70-6.10); White Blood Cell (WBC) Count 4.8 thou/uL (4.8-10.8)
[2021-08-20 05:20] LABS: Anion Gap 12 mmol/L (10-20); BUN (Urea Nitrogen) 20 mg/dL (8.9-20.6); Calc. Creatinine Clearance 68 mL/min (70-130); Calcium 8.4 mg/dL (7.8-10.44); Carbon Dioxide 27 mmol/L (22-29); Chloride 100 mmol/L (98-107); Estimated GFR 43; Glucose 260 mg/dL (70-105); Potassium 3.5 mmol/L (3.5-5.1); Sodium 135 mmol/L (136-145)
[2021-08-20 05:32] LABS: Band 20 % (5-11); Lymphocytes 23 % (21-51); MDiff Complete? YES; Metamyelocyte 1 % (0-0); Monocytes 7 % (0-10); Neutrophil 49 % (42-75)
[2021-08-20] MEDS ORDERED: Amlodipine 5 MG TAB PO SCH (09:00)
[2021-08-20] MEDS ORDERED: Enoxaparin Sodium 40 MG/0.4 ML SYRINGE SC SCH (09:00)
[2021-08-20] MEDS: Carvedilol 25 MG TAB PO SCH ×2 (09:07→17:08)
[2021-08-20] MEDS: HumuLIN 70/30 (300 UNITS/3 ML VIAL) SC SCH ×2 (09:07→20:28)
[2021-08-20] MEDS: Sacubitril 49 MG/Valsartan 51 MG TABLET PO SCH ×2 (09:08→20:26)
[2021-08-20] MEDS: Heparin 5,000 UNITS/ML VIAL SC SCH ×3 (09:13→20:27)
[2021-08-20] MEDS ORDERED: Regadenoson 0.4 MG/5 ML SYRINGE ONE (09:30)
[2021-08-20] MEDS: HumaLOG 300 UNITS/3 ML VIAL SC PRN (17:42)
[2021-08-20] MEDS: Atorvastatin Calcium 40 MG TAB PO SCH (20:26)
[2021-08-20] MEDS: Acetaminophen 325 MG TAB PO PRN (20:27)
[2021-08-20] MEDS: Famotidine 20 MG TAB PO SCH (20:27)
[2021-08-20] MEDS: hydrALAZINE 25 MG TAB PO PRN (20:27)
[2021-08-20] MEDS: Tamsulosin HCl 0.4 MG CAP PO SCH (20:27)
[2021-08-21] MEDS: Acetaminophen 325 MG TAB PO PRN ×3 (03:57→22:06)
[2021-08-21] MEDS: hydrALAZINE 25 MG TAB PO PRN (03:57)
[2021-08-21 04:11] LABS: #Eosinphils 0.1 thou/uL (0.0-0.7); #Lymphocytes 1.4 thou/uL (1.20-3.40); #Monocytes 0.6 thou/uL (0.11-0.59); #Neutrophils 2.1 thou/uL (1.40-6.50); %Basophils 0.9 % (0.0-1.0); %Eosinophils 2.7 % (0.0-10.0); %Lymphocytes 32.3 % (21.0-51.0); %Monocytes 14.8 % (0.0-10.0); %Neutrophils 49.4 % (42.0-75.0); Hemoglobin 13.6 g/dL (14.0-18.0); Mean Corpuscular HGB CONC 35.6 g/dL (32.0-36.0); Mean Corpuscular Hemoglobin 31.1 pg (27.0-31.0); Mean Corpuscular Volume 87.4 fL (78.0-98.0); Mean Platelet Volume 8.7 fL (7.4-10.4); Platelet Count 156 thou/uL (130-400); RBC Distribution Width 12.4 % (11.5-14.5); Red Blood Cell (RBC) Count 4.36 mill/uL (4.70-6.10); White Blood Cell (WBC) Count 4.2 thou/uL (4.8-10.8)
[2021-08-21 04:29] LABS: Anion Gap 15 mmol/L (10-20); BUN (Urea Nitrogen) 20 mg/dL (8.9-20.6); Calc. Creatinine Clearance 82 mL/min (70-130); Calcium 8.1 mg/dL (7.8-10.44); Carbon Dioxide 21 mmol/L (22-29); Chloride 103 mmol/L (98-107); Estimated GFR 53; Glucose 224 mg/dL (70-105); Potassium 3.2 mmol/L (3.5-5.1); Sodium 136 mmol/L (136-145)
[2021-08-21 05:10] LABS: Bacteria/HPF None Seen HPF (None Seen); Bilirubin Negative (Negative); Blood, Urine 2+ (Negative); Clarity Clear (Clear); Glucose, Urine (Dipstick) Greater than 1000 mg/dL (Negative); Ketone, Urine Negative (Negative); Leukocyte Negative Leu/uL (Negative); Nitrite Negative (Negative); Protein, Urine (Dipstick) 300 mg/dL (Neg-Trace); Specific Gravity, Urine 1.018 (1.002-1.036); Urobilinogen Normal mg/dL (Less than 2)
[2021-08-21] MEDS: HumaLOG 300 UNITS/3 ML VIAL SC PRN ×3 (05:14→22:07)
[2021-08-21 05:17] LABS: Urine Culture Reflex No No
[2021-08-21] MEDS ORDERED: Potassium Chloride 20 MEQ TAB PO SCH (07:30)
[2021-08-21] MEDS: Carvedilol 25 MG TAB PO SCH ×2 (10:21→17:07)
[2021-08-21] MEDS: Famotidine 20 MG TAB PO SCH ×2 (10:21→22:07)
[2021-08-21] MEDS: HumuLIN 70/30 (300 UNITS/3 ML VIAL) SC SCH ×2 (10:21→22:07)
[2021-08-21] MEDS: Amlodipine 10 MG TAB PO SCH (10:21)
[2021-08-21] MEDS: Sacubitril 49 MG/Valsartan 51 MG TABLET PO SCH ×2 (10:22→22:05)
[2021-08-21] MEDS: Heparin 5,000 UNITS/ML VIAL SC SCH ×3 (10:25→22:06)
[2021-08-21 12:06] LABS: Hemoglobin 13.3 g/dL (14.0-18.0); Platelet Count 145 thou/uL (130-400)
[2021-08-21] MEDS ORDERED: Labetalol HCl 100 MG/20 ML VIAL SLOW IVP SCH (13:00)
[2021-08-21] MEDS ORDERED: Labetalol HCl 100 MG/20 ML VIAL SLOW IVP PRN (13:52)
[2021-08-21] MEDS ORDERED: Nitroglycerin 2% Ointment 1 INCH/1 GM Packet TOP SCH (15:30)
[2021-08-21] MEDS: Tamsulosin HCl 0.4 MG CAP PO SCH (22:06)
[2021-08-21] MEDS: Nitroglycerin 2% Ointment 1 INCH/1 GM Packet TOP SCH (22:06)
[2021-08-21] MEDS: Atorvastatin Calcium 40 MG TAB PO SCH (22:07)
[2021-08-22 04:11] LABS: #Eosinphils 0.1 thou/uL (0.0-0.7); #Lymphocytes 1.6 thou/uL (1.20-3.40); #Monocytes 0.5 thou/uL (0.11-0.59); #Neutrophils 1.8 thou/uL (1.40-6.50); %Basophils 0.7 % (0.0-1.0); %Eosinophils 3.4 % (0.0-10.0); %Lymphocytes 40.3 % (21.0-51.0); %Monocytes 11.7 % (0.0-10.0); %Neutrophils 43.9 % (42.0-75.0); Hemoglobin 13.9 g/dL (14.0-18.0); Mean Corpuscular Hemoglobin 31.7 pg (27.0-31.0); Mean Corpuscular Volume 88.1 fL (78.0-98.0); Mean Platelet Volume 8.5 fL (7.4-10.4); Platelet Count 174 thou/uL (130-400); RBC Distribution Width 12.6 % (11.5-14.5); Red Blood Cell (RBC) Count 4.38 mill/uL (4.70-6.10)
[2021-08-22 04:34] LABS: Anion Gap 12 mmol/L (10-20); BUN (Urea Nitrogen) 19 mg/dL (8.9-20.6); Calc. Creatinine Clearance 88 mL/min (70-130); Calcium 8.2 mg/dL (7.8-10.44); Carbon Dioxide 21 mmol/L (22-29); Chloride 103 mmol/L (98-107); Estimated GFR 58; Glucose 227 mg/dL (70-105); Sodium 133 mmol/L (136-145)
[2021-08-22] MEDS: HumaLOG 300 UNITS/3 ML VIAL SC PRN ×2 (06:26→10:31)
[2021-08-22] MEDS: Nitroglycerin 2% Ointment 1 INCH/1 GM Packet TOP SCH ×2 (06:26→15:55)
[2021-08-22] MEDS ORDERED: Potassium Chloride 20 MEQ TAB PO SCH (10:00)
[2021-08-22] MEDS: Famotidine 20 MG TAB PO SCH (10:19)
[2021-08-22] MEDS: Carvedilol 25 MG TAB PO SCH (10:19)
[2021-08-22] MEDS: Sacubitril 49 MG/Valsartan 51 MG TABLET PO SCH (10:19)
[2021-08-22] MEDS: Amlodipine 10 MG TAB PO SCH (10:19)
[2021-08-22] MEDS: Heparin 5,000 UNITS/ML VIAL SC SCH ×2 (10:20→15:55)
[2021-08-22] MEDS: HumuLIN 70/30 (300 UNITS/3 ML VIAL) SC SCH (10:23)
[2021-08-22] MEDS: hydrALAZINE 25 MG TAB PO PRN (10:52)
[2021-08-22] MEDS: Acetaminophen 325 MG TAB PO PRN (10:52)
[2021-08-22] MEDS ORDERED: hydrALAZINE 20 MG/ML VIAL SLOW IVP PRN (12:05)
[2021-08-22] MEDS ORDERED: NIFEdipine XL 30 MG TAB PO SCH ×2 (12:15→21:00)
[2021-08-22 13:09] VITALS: BP 140/100
[2021-08-22 13:12] VITALS: TEMP 98.2
== END 2021-08-22 15:50 | disposition home or self-care (01) | DRG 177 ==
LOC: ERS 09:20 → 2NO 11:53
PROVIDERS: ADMIT Hospitalist; ATTEND Hospitalist
PROC: 8E0ZXY6 Isolation (ICD-10-PCS; principal; 2021-08-19)
DX: U07.1 COVID-19 (principal); I21.A1 Myocardial infarction type 2; I50.22 Chronic systolic (congestive) heart failure; N17.9 Acute kidney failure, unspecified; I25.10 Atherosclerotic heart disease of native coronary artery without angina pectoris; I11.0 Hypertensive heart disease with heart failure; E78.5 Hyperlipidemia, unspecified; E11.9 Type 2 diabetes mellitus without complications; E87.6 Hypokalemia; I25.5 Ischemic cardiomyopathy; Z91.14 Patient's other noncompliance with medication regimen; Z95.5 Presence of coronary angioplasty implant and graft; Z95.810 Presence of automatic (implantable) cardiac defibrillator; Z91.040 Latex allergy status; Z79.82 Long term (current) use of aspirin; Z79.4 Long term (current) use of insulin; Z79.899 Other long term (current) drug therapy; Z79.84 Long term (current) use of oral hypoglycemic drugs
CPT/HCPCS: 36415; 36416; 70450; 71045; 71046; 71275; 72125; 78452; 80048; 80053; 81001; 82553; 83735; 83880; 84484; 85014; 85018; 85025; 85049; 85730; 87804; 93005; 93010; 93017; 93306; A9500; J1644; J1815; J2785; J3475; J7120; Q9966; U0003; U0005

== ENCOUNTER 2021-08-28 17:04 | Inpatient (IN) | payer BC ==
[~2021-08-28 17:04] MED LIST changes: -ISOVUE-370 76%-LOCM 1 ML ONE; +Iopamidol-370 76% 500 ML 1 ML ONE
[2021-08-28 17:28] LABS: #Eosinphils 0.3 thou/uL (0.0-0.7); #Lymphocytes 2.9 thou/uL (1.20-3.40); #Monocytes 0.6 thou/uL (0.11-0.59); #Neutrophils 4.5 thou/uL (1.40-6.50); %Basophils 0.3 % (0.0-1.0); %Eosinophils 3.4 % (0.0-10.0); %Lymphocytes 35.1 % (21.0-51.0); %Monocytes 6.7 % (0.0-10.0); %Neutrophils 54.5 % (42.0-75.0); Hemoglobin 15.6 g/dL (14.0-18.0); Mean Corpuscular HGB CONC 34.7 g/dL (32.0-36.0); Mean Corpuscular Hemoglobin 30.3 pg (27.0-31.0); Mean Corpuscular Volume 87.5 fL (78.0-98.0); Mean Platelet Volume 8.1 fL (7.4-10.4); Platelet Count 265 thou/uL (130-400); RBC Distribution Width 12.5 % (11.5-14.5); Red Blood Cell (RBC) Count 5.14 mill/uL (4.70-6.10); White Blood Cell (WBC) Count 8.2 thou/uL (4.8-10.8)
[2021-08-28 17:47] LABS: ALT (SGPT) 20 U/L (8-55); AST (SGOT) 15 U/L (5-34); Albumin 3.4 g/dL (3.5-5.0); Alkaline Phosphatase 117 U/L (40-110); Anion Gap 15 mmol/L (10-20); BUN (Urea Nitrogen) 13 mg/dL (8.9-20.6); Bilirubin, Total 0.7 mg/dL (0.2-1.2); Calc. Creatinine Clearance 0 mL/min (70-130); Calcium 9.3 mg/dL (7.8-10.44); Carbon Dioxide 23 mmol/L (22-29); Chloride 104 mmol/L (98-107); Estimated GFR 55; Glucose 194 mg/dL (70-105); Lipase 25 U/L (8-78); Potassium 3.5 mmol/L (3.5-5.1); Protein, Total 7.4 g/dL (6.0-8.3); Sodium 138 mmol/L (136-145)
[2021-08-28] MEDS ORDERED: Promethazine HCl 12.5 MG SUPP ONE (19:28)
[2021-08-28] MEDS ORDERED: Ondansetron PF 4 MG/2 ML Vial ONE (19:28)
[2021-08-28 19:36] LABS: Bacteria/HPF None Seen HPF (None Seen); Bilirubin Negative (Negative); Blood, Urine 2+ (Negative); Clarity Clear (Clear); Glucose, Urine (Dipstick) 500 mg/dL (Negative); Ketone, Urine Negative (Negative); Leukocyte Negative Leu/uL (Negative); Nitrite Negative (Negative); Protein, Urine (Dipstick) Greater than 600 mg/dL (Neg-Trace); Specific Gravity, Urine 1.019 (1.002-1.036); Squamous Epithelial 0-3 HPF (0-3); Urobilinogen Normal mg/dL (Less than 2); WBC/HPF 0-3 HPF (0-3); pH, Urine 6.5 (5.0-9.0)
[2021-08-28 23:39] VITALS: BMI 29.7
[2021-08-29] MEDS: Sodium Chloride 0.9% 1,000 ML IV SCH ×3 (00:33→07:17)
[2021-08-29] MEDS ORDERED: Dextrose 5% in Water 1,000 ML IV PRN (01:55)
[2021-08-29] MEDS ORDERED: Dextrose 50% Abboject 50 ML SYRINGE SLOW IVP PRN (01:55)
[2021-08-29] MEDS ORDERED: HumaLOG 300 UNITS/3 ML VIAL SC PRN (01:55)
[2021-08-29] MEDS: Ondansetron PF 4 MG/2 ML Vial IVP PRN ×2 (03:17→17:00)
[2021-08-29 06:10] LABS: #Eosinphils 0.2 thou/uL (0.0-0.7); #Lymphocytes 2.5 thou/uL (1.20-3.40); #Monocytes 0.8 thou/uL (0.11-0.59); #Neutrophils 4.1 thou/uL (1.40-6.50); %Basophils 0.2 % (0.0-1.0); %Eosinophils 3.2 % (0.0-10.0); %Lymphocytes 32.9 % (21.0-51.0); %Monocytes 9.8 % (0.0-10.0); %Neutrophils 53.9 % (42.0-75.0); Hemoglobin 13.5 g/dL (14.0-18.0); Mean Corpuscular HGB CONC 34.5 g/dL (32.0-36.0); Mean Corpuscular Hemoglobin 30.1 pg (27.0-31.0); Mean Corpuscular Volume 87.3 fL (78.0-98.0); Mean Platelet Volume 8.1 fL (7.4-10.4); Platelet Count 195 thou/uL (130-400); RBC Distribution Width 12.7 % (11.5-14.5); White Blood Cell (WBC) Count 7.6 thou/uL (4.8-10.8)
[2021-08-29 06:21] LABS: Anion Gap 13 mmol/L (10-20); BUN (Urea Nitrogen) 11 mg/dL (8.9-20.6); Calc. Creatinine Clearance 108 mL/min (70-130); Calcium 8.3 mg/dL (7.8-10.44); Carbon Dioxide 22 mmol/L (22-29); Chloride 107 mmol/L (98-107); Estimated GFR 74; Glucose 146 mg/dL (70-105); Potassium 3.2 mmol/L (3.5-5.1); Sodium 139 mmol/L (136-145)
[2021-08-29] MEDS: Heparin 5,000 UNITS/ML VIAL SC SCH ×2 (07:52→20:51)
[2021-08-29] MEDS ORDERED: Carvedilol 25 MG TAB PO SCH (08:15)
[2021-08-29] MEDS: NIFEdipine XL 30 MG TAB PO SCH ×2 (08:28→20:51)
[2021-08-29] MEDS: Aspirin Chewable 81 MG TAB PO SCH (08:29)
[2021-08-29] MEDS: Clopidogrel Bisulfate 75 MG TAB PO SCH (08:29)
[2021-08-29] MEDS ORDERED: NIFEDIPINE 30 MG PO SCH (09:00)
[2021-08-29] MEDS ORDERED: hydrALAZINE 20 MG/ML VIAL SLOW IVP PRN (09:34)
[2021-08-29] MEDS ORDERED: Sacubitril 49 MG/Valsartan 51 MG TABLET PO SCH (09:45)
[2021-08-29 09:52] LABS: Creatinine, Urine 78.65 mg/dL (63-166)
[2021-08-29 12:14] LABS: Prothrombin Time 12.8 sec (12.0-14.7)
[2021-08-29 12:30] LABS: Complement-C4 43.1 mg/dL (15-53)
[2021-08-29 13:22] LABS: HBSAB Concentration Less than 8.00 mIU/mL; HBSAg Index 0.22 S/CO (0-0.99); HIV (1/2) Antibody/Antigen Non-Reactive (NonReactive); HIV 1/2 INDEX 0.12 S/CO (<1.00); Hep B Surf AB Non-Reactive (NonReactive); Hep B Surf Ag Non-Reactive S/CO (NonReactive); Hep C IgG Ab Non-Reactive (NonReactive); Hep C Index 0.12 S/CO (0-0.79); Hepatitis B Core IgM Abs Non-Reactive (NonReactive)
[2021-08-29] MEDS ORDERED: Saccharomyces boulardii 250 MG CAP PO SCH (13:45)
[2021-08-29] MEDS: Vancomycin 25 MG/ML Oral SOLN PO SCH ×2 (14:32→20:50)
[2021-08-29] MEDS: HumaLOG 300 UNITS/3 ML VIAL SC PRN (16:55)
[2021-08-29] MEDS: Carvedilol 25 MG TAB PO SCH (16:56)
[2021-08-29] MEDS ORDERED: Potassium Chloride 20 MEQ TAB PO SCH (20:00)
[2021-08-29] MEDS: Tamsulosin HCl 0.4 MG CAP PO SCH (20:51)
[2021-08-29] MEDS: Sacubitril 49 MG/Valsartan 51 MG TABLET PO SCH (20:56)
[2021-08-29] MEDS: Acetaminophen 325 MG TAB PO PRN (20:56)
[2021-08-29] MEDS ORDERED: Non-Formulary Item 1 EACH (Sacubitril/Valsartan [Entresto 97 Mg-103 Mg Tablet] 1 EACH Tab PO SCH (21:00)
[2021-08-30] MEDS: Vancomycin 25 MG/ML Oral SOLN PO SCH ×4 (02:20→23:46)
[2021-08-30 06:40] LABS: #Eosinphils 0.2 thou/uL (0.0-0.7); #Lymphocytes 2.2 thou/uL (1.20-3.40); #Monocytes 0.7 thou/uL (0.11-0.59); #Neutrophils 3.1 thou/uL (1.40-6.50); %Basophils 0.6 % (0.0-1.0); %Eosinophils 2.6 % (0.0-10.0); %Lymphocytes 35.1 % (21.0-51.0); %Monocytes 11.3 % (0.0-10.0); %Neutrophils 50.5 % (42.0-75.0); Hemoglobin 13.8 g/dL (14.0-18.0); Mean Corpuscular HGB CONC 34.4 g/dL (32.0-36.0); Mean Corpuscular Hemoglobin 30.1 pg (27.0-31.0); Mean Corpuscular Volume 87.6 fL (78.0-98.0); Mean Platelet Volume 8.3 fL (7.4-10.4); Platelet Count 196 thou/uL (130-400); RBC Distribution Width 12.7 % (11.5-14.5); Red Blood Cell (RBC) Count 4.57 mill/uL (4.70-6.10); White Blood Cell (WBC) Count 6.2 thou/uL (4.8-10.8)
[2021-08-30] MEDS: NIFEdipine XL 30 MG TAB PO SCH ×2 (08:28→20:19)
[2021-08-30] MEDS: Aspirin Chewable 81 MG TAB PO SCH (08:28)
[2021-08-30] MEDS: Clopidogrel Bisulfate 75 MG TAB PO SCH (08:28)
[2021-08-30] MEDS: Carvedilol 25 MG TAB PO SCH ×2 (08:28→16:50)
[2021-08-30] MEDS: Heparin 5,000 UNITS/ML VIAL SC SCH ×2 (08:28→20:20)
[2021-08-30] MEDS: Saccharomyces boulardii 250 MG CAP PO SCH (08:28)
[2021-08-30] MEDS: Sacubitril 49 MG/Valsartan 51 MG TABLET PO SCH ×2 (08:29→20:20)
[2021-08-30 09:56] LABS: Chloride 102 mmol/L (98-107); Potassium 3.6 mmol/L (3.5-5.1); Sodium 137 mmol/L (136-145)
[2021-08-30 09:57] LABS: Calcium 8.6 mg/dL (7.8-10.44); Glucose 274 mg/dL (70-105)
[2021-08-30 09:59] LABS: Anion Gap 17 mmol/L (10-20); Carbon Dioxide 22 mmol/L (22-29)
[2021-08-30 10:01] LABS: Calc. Creatinine Clearance 91 mL/min (70-130); Estimated GFR 61
[2021-08-30 10:02] LABS: BUN (Urea Nitrogen) 12 mg/dL (8.9-20.6)
[2021-08-30 10:03] LABS: Magnesium 1.4 mg/dL (1.6-2.6)
[2021-08-30] MEDS ORDERED: Magnesium Sulfate In Water 4 GM in Premix Bag 1 BAG IVPB SCH (10:15)
[2021-08-30] MEDS ORDERED: Magnesium Sulfate 4 GM in Sodium Chloride 0.9% 250 ML 250 ML IVPB SCH (10:15)
[2021-08-30] MEDS: HumaLOG 300 UNITS/3 ML VIAL SC PRN ×2 (12:43→16:50)
[2021-08-30 16:35] LABS: ANA Symphony (Qualitative) Negative (Negative); ANA Symphony (Quantitative) 0.3 Ratio (< 0.7 Negative); Cardiolipin IgA Ab 4.8 APL-U/mL (<14 Negative); Cardiolipin IgG Ab 0.8 GPL-U/mL (<10 Negative); Cardiolipin IgM Ab Less than 0.8 MPL-U/mL (<10 Negative); EliA APS New Method **** NEW METHOD ****; beta-2-Glycoprotein I IgA Ab 2.9 U/mL (<7 Negative); beta-2-Glycoprotein I IgG Ab 1.2 U/mL (<7 Negative); beta-2-Glycoprotein I IgM Abs Less than 2.9 U/mL (<7 Negative); dsDNA IgG Antibody 0.8 IU/mL (<10 Negative)
[2021-08-30] MEDS ORDERED: HumaLOG 300 UNITS/3 ML VIAL SC PRN (16:51)
[2021-08-30] MEDS: metFORMIN 500 MG TAB PO SCH (18:28)
[2021-08-30] MEDS: Tamsulosin HCl 0.4 MG CAP PO SCH (20:20)
[2021-08-30] MEDS: NPH, Human Insulin Isophane 300 UNIT/3 ML VIAL SC SCH (20:20)
[2021-08-30] MEDS: Acetaminophen 325 MG TAB PO PRN (20:21)
[2021-08-30] MEDS: Ondansetron PF 4 MG/2 ML Vial IVP PRN (20:29)
[2021-08-30] MEDS ORDERED: Atorvastatin Calcium 40 MG TAB PO SCH (21:00)
[2021-08-31] MEDS: Vancomycin 25 MG/ML Oral SOLN PO SCH ×2 (05:14→13:47)
[2021-08-31] MEDS: HumaLOG 300 UNITS/3 ML VIAL SC PRN ×2 (05:17→13:47)
[2021-08-31 07:24] LABS: Anion Gap 15 mmol/L (10-20); BUN (Urea Nitrogen) 15 mg/dL (8.9-20.6); Calc. Creatinine Clearance 83 mL/min (70-130); Calcium 8.7 mg/dL (7.8-10.44); Carbon Dioxide 21 mmol/L (22-29); Chloride 102 mmol/L (98-107); Estimated GFR 54; Glucose 207 mg/dL (70-105); Potassium 3.3 mmol/L (3.5-5.1); Sodium 135 mmol/L (136-145)
[2021-08-31] MEDS ORDERED: Potassium Chloride 10 MEQ TAB PO SCH (08:30)
[2021-08-31 08:42] VITALS: BP 145/82; TEMP 98.3
[2021-08-31 08:57] LABS: Magnesium 1.8 mg/dL (1.6-2.6)
[2021-08-31] MEDS: Carvedilol 25 MG TAB PO SCH (08:57)
[2021-08-31] MEDS: Heparin 5,000 UNITS/ML VIAL SC SCH (08:57)
[2021-08-31] MEDS: Clopidogrel Bisulfate 75 MG TAB PO SCH (08:57)
[2021-08-31] MEDS: metFORMIN 500 MG TAB PO SCH (08:57)
[2021-08-31] MEDS: Saccharomyces boulardii 250 MG CAP PO SCH (08:57)
[2021-08-31] MEDS: NIFEdipine XL 30 MG TAB PO SCH (08:57)
[2021-08-31] MEDS: Aspirin Chewable 81 MG TAB PO SCH (08:57)
[2021-08-31] MEDS: NPH, Human Insulin Isophane 300 UNIT/3 ML VIAL SC SCH (08:58)
[2021-09-01 16:04] LABS: DRVVT Confirm 39.6; HEX PHOS LA Tube 1 40.4 SEC; Hexagonal Phospholipid Neut 1.3 SEC (0-8.0)
[2021-09-01 16:06] LABS: Factor VIII Test 327.7 % ACTIVE (56-157)
[2021-09-01 16:38] LABS: Albumin-Ur 47.8 % (.); Alpha 1 - Ur 10.2 % (.); Alpha 2 - Ur 9.3 % (.); Beta-Ur 16.4 % (.); Gamma-Ur 16.3 % (.); M-Spike,% Not Observed % (Not Observed); Protein, Urine 725.3 mg/dL (Not Estab.)
[2021-09-04 12:03] LABS: Factor IX Test 191.7 % ACTIVE (56-149)
== END 2021-08-31 14:43 | disposition home or self-care (01) | DRG 371 ==
LOC: ERS 17:04 → T4-B 21:53 → OBSVTOIN 08-30 14:38
PROVIDERS: ADMIT Internal Medicine; ATTEND Internal Medicine
PROC: 8E0ZXY6 Isolation (ICD-10-PCS; principal; 2021-08-30)
DX: A04.72 Enterocolitis due to Clostridium difficile, not specified as recurrent (principal); U07.1 COVID-19; I50.22 Chronic systolic (congestive) heart failure; I13.0 Hypertensive heart and chronic kidney disease with heart failure and stage 1 through stage 4 chronic kidney disease, or unspecified chronic kidney disease; N17.9 Acute kidney failure, unspecified; E78.5 Hyperlipidemia, unspecified; I25.10 Atherosclerotic heart disease of native coronary artery without angina pectoris; I25.5 Ischemic cardiomyopathy; E11.22 Type 2 diabetes mellitus with diabetic chronic kidney disease; N18.30 Chronic kidney disease, stage 3 unspecified; K76.0 Fatty (change of) liver, not elsewhere classified; D63.1 Anemia in chronic kidney disease; E87.6 Hypokalemia; E83.42 Hypomagnesemia; R80.8 Other proteinuria; Z91.040 Latex allergy status; Z79.899 Other long term (current) drug therapy; Z79.82 Long term (current) use of aspirin; Z79.4 Long term (current) use of insulin; Z95.5 Presence of coronary angioplasty implant and graft; Z95.810 Presence of automatic (implantable) cardiac defibrillator; Z82.49 Family history of ischemic heart disease and other diseases of the circulatory system; Z87.891 Personal history of nicotine dependence
CPT/HCPCS: 36415; 36416; 71045; 74177; 80048; 80053; 81003; 81015; 82550; 82570; 83516; 83690; 83735; 84100; 84156; 84166; 84484; 85025; 85240; 85250; 85598; 85610; 85613; 85730; 86038; 86146; 86147; 86160; 86225; 86705; 86706; 86803; 87324; 87340; 87389; 87449; 87493; 93005; 96361; 96372; 96374; 96375; 96376; G0378; J0360; J1644; J1815; J2405; J3475; Q9967

== ENCOUNTER 2022-01-19 18:45 | Inpatient (IN) | payer BC ==
[2022-01-19 19:50] LABS: ALT (SGPT) 23 U/L (8-55); AST (SGOT) 21 U/L (5-34); Albumin 3.2 g/dL (3.5-5.0); Alkaline Phosphatase 86 U/L (40-110); Anion Gap 15 mmol/L (10-20); BUN (Urea Nitrogen) 24 mg/dL (8.9-20.6); Bilirubin, Total 0.4 mg/dL (0.2-1.2); Calc. Creatinine Clearance 0 mL/min (70-130); Calcium 8.3 mg/dL (7.8-10.44); Carbon Dioxide 23 mmol/L (22-29); Chloride 95 mmol/L (98-107); Estimated GFR 31; Globulin 4.2 g/dL (2.4-3.5); Protein, Total 7.4 g/dL (6.0-8.3); Sodium 130 mmol/L (136-145)
[2022-01-19 19:57] LABS: Glucose 578 mg/dL (70-105)
[2022-01-19 20:35] LABS: #Basophils 0.1 thou/uL (0.0-0.2); #Eosinphils 0.3 thou/uL (0.0-0.7); #Lymphocytes 2.5 thou/uL (1.20-3.40); #Monocytes 0.6 thou/uL (0.11-0.59); #Neutrophils 4.2 thou/uL (1.40-6.50); %Basophils 0.9 % (0.0-1.0); %Eosinophils 3.6 % (0.0-10.0); %Lymphocytes 32.8 % (21.0-51.0); %Monocytes 7.7 % (0.0-10.0); Hemoglobin 14.5 g/dL (14.0-18.0); Mean Corpuscular HGB CONC 37.1 g/dL (32.0-36.0); Mean Corpuscular Hemoglobin 31.4 pg (27.0-31.0); Mean Corpuscular Volume 84.7 fl (78.0-98.0); Platelet Count 226 10x3/uL (130-400); RBC Distribution Width 12.5 % (11.5-14.5); White Blood Cell (WBC) Count 7.7 10x3/uL (4.8-10.8)
[2022-01-19] MEDS ORDERED: Potassium Chloride 20 MEQ TAB ONE (21:10)
[2022-01-19] MEDS ORDERED: Aspirin Chewable 81 MG TAB ONE (21:10)
[2022-01-19] MEDS ORDERED: Potassium Bicarbonate/Cit Ac 25 MEQ TAB ONE ×2 (21:27)
[2022-01-19] MEDS ORDERED: Ondansetron PF 4 MG/2 ML Vial ONE (22:46)
[2022-01-19] MEDS ORDERED: Dextrose 50% Abboject 50 ML SYRINGE SLOW IVP PRN (22:50)
[2022-01-19] MEDS ORDERED: Dextrose 5% in Water 1,000 ML IV PRN (22:50)
[2022-01-19] MEDS ORDERED: HumaLOG 300 UNITS/3 ML VIAL SC PRN ×2 (22:50)
[2022-01-19] MEDS ORDERED: Ondansetron ODT 4 MG TAB PO PRN (23:09)
[2022-01-19] MEDS ORDERED: Ondansetron PF 4 MG/2 ML Vial IVP PRN (23:09)
[2022-01-19] MEDS ORDERED: Electrolyte Replacement Protocol 1 EACH FS PRN (23:45)
[2022-01-20 00:46] LABS: Magnesium 1.6 mg/dL (1.6-2.6)
[2022-01-20 00:54] VITALS: BMI 30.7
[2022-01-20] MEDS ORDERED: Magnesium 2 GM/50 ML(in water) 2 GM in Premix Bag 1 BAG IVPB SCH (01:15)
[2022-01-20] MEDS: Sodium Chloride 0.9% 1,000 ML IV SCH ×2 (01:20→12:02)
[2022-01-20 01:36] LABS: Troponin I 0.046 ng/mL (< 0.028)
[2022-01-20 03:41] LABS: SARS-CoV-2 NAA Rapid Test Not Detected (NotDetected)
[2022-01-20 06:09] LABS: #Basophils 0.1 thou/uL (0.0-0.2); #Eosinphils 0.3 thou/uL (0.0-0.7); #Lymphocytes 2.5 thou/uL (1.20-3.40); #Monocytes 0.7 thou/uL (0.11-0.59); #Neutrophils 5.7 thou/uL (1.40-6.50); %Eosinophils 3.1 % (0.0-10.0); %Lymphocytes 27.1 % (21.0-51.0); %Monocytes 7.6 % (0.0-10.0); %Neutrophils 61.2 % (42.0-75.0); Hemoglobin 14.5 g/dL (14.0-18.0); Mean Corpuscular HGB CONC 35.5 g/dL (32.0-36.0); Mean Corpuscular Hemoglobin 29.9 pg (27.0-31.0); Mean Corpuscular Volume 84.1 fl (78.0-98.0); Platelet Count 218 10x3/uL (130-400); RBC Distribution Width 12.5 % (11.5-14.5); Red Blood Cell (RBC) Count 4.85 mill/uL (4.70-6.10); White Blood Cell (WBC) Count 9.4 10x3/uL (4.8-10.8)
[2022-01-20 06:24] LABS: Hemoglobin A1c 13.9 % (4.0-6.0)
[2022-01-20 06:44] LABS: Anion Gap 12 mmol/L (10-20); BUN (Urea Nitrogen) 22 mg/dL (8.9-20.6); Calc. Creatinine Clearance 68 mL/min (70-130); Calcium 8.4 mg/dL (7.8-10.44); Carbon Dioxide 25 mmol/L (22-29); Cardiac Risk 12.6 (Less than 4.5); Chloride 101 mmol/L (98-107); Cholesterol 453 mg/dl (< 200 Desired); Estimated GFR 41; Glucose 297 mg/dL (70-105); HDL Cholesterol 36 mg/dL (>60 Neg Risk); Magnesium 2.2 mg/dL (1.6-2.6); Sodium 135 mmol/L (136-145)
[2022-01-20 06:52] LABS: Triglycerides 2253 mg/dL (Less than 150)
[2022-01-20] MEDS ORDERED: Potassium Chloride 20 MEQ TAB PO SCH (08:30)
[2022-01-20] MEDS: Acetaminophen 325 MG TAB PO PRN (09:00)
[2022-01-20] MEDS ORDERED: HumuLIN 70/30 (300 UNITS/3 ML VIAL) SC SCH ×2 (09:00→21:00)
[2022-01-20] MEDS: Clopidogrel Bisulfate 75 MG TAB PO SCH (09:00)
[2022-01-20] MEDS: Labetalol HCl 100 MG/20 ML VIAL SLOW IVP PRN ×4 (09:00→20:42)
[2022-01-20] MEDS: Aspirin 81 mg Enteric Coated Tablet PO SCH (09:00)
[2022-01-20] MEDS: HumaLOG 300 UNITS/3 ML VIAL SC PRN ×2 (12:02→20:28)
[2022-01-20 13:07] LABS: PTT 28.3 sec (22.9-36.1)
[2022-01-20 13:08] LABS: D-Dimer Test 0.74 *mcg/mL (0.27-0.43); Prothrombin Time 13.7 sec (12.0-14.7)
[2022-01-20] MEDS ORDERED: Insulin Regular 300 UNITS/3 ML VIAL IVP SCH (16:00)
[2022-01-20 18:39] LABS: Glucose 353 mg/dL (70-105)
[2022-01-20] MEDS: Heparin 5,000 UNITS/ML VIAL SC SCH (20:24)
[2022-01-20] MEDS: Atorvastatin Calcium 40 MG TAB PO SCH (20:24)
[2022-01-20] MEDS: Tamsulosin HCl 0.4 MG CAP PO SCH (20:26)
[2022-01-20] MEDS: NIFEdipine XL 30 MG TAB PO SCH (20:26)
[2022-01-20] MEDS: Sacubitril 49 MG/Valsartan 51 MG TABLET PO SCH (20:26)
[2022-01-20] MEDS ORDERED: traMADol HCl 50 MG TAB PO PRN (20:45)
[2022-01-21] MEDS: HumaLOG 300 UNITS/3 ML VIAL SC PRN ×3 (00:58→12:23)
[2022-01-21] MEDS: Sodium Chloride 0.9% 1,000 ML IV SCH ×2 (02:30→16:54)
[2022-01-21 06:59] LABS: Anion Gap 13 mmol/L (10-20); BUN (Urea Nitrogen) 23 mg/dL (8.9-20.6); Calc. Creatinine Clearance 67 mL/min (70-130); Calcium 7.4 mg/dL (7.8-10.44); Carbon Dioxide 20 mmol/L (22-29); Chloride 101 mmol/L (98-107); Estimated GFR 41; Sodium 131 mmol/L (136-145)
[2022-01-21 07:02] LABS: Glucose 403 mg/dL (70-105)
[2022-01-21] MEDS ORDERED: HumuLIN 70/30 (300 UNITS/3 ML VIAL) SC SCH ×2 (07:29→21:00)
[2022-01-21] MEDS ORDERED: Potassium Chloride 20 MEQ TAB PO SCH (08:15)
[2022-01-21 08:23] LABS: #Basophils 0.1 thou/uL (0.0-0.2); #Eosinphils 0.3 thou/uL (0.0-0.7); #Lymphocytes 2.8 thou/uL (1.20-3.40); #Monocytes 0.7 thou/uL (0.11-0.59); #Neutrophils 4.1 thou/uL (1.40-6.50); %Basophils 0.8 % (0.0-1.0); %Eosinophils 3.4 % (0.0-10.0); %Lymphocytes 35.1 % (21.0-51.0); %Monocytes 8.7 % (0.0-10.0); Hemoglobin 12.3 g/dL (14.0-18.0); Mean Corpuscular HGB CONC 35.7 g/dL (32.0-36.0); Mean Corpuscular Volume 86.6 fl (78.0-98.0); Mean Platelet Volume 9.8 fL (7.4-10.4); Platelet Count 182 10x3/uL (130-400); RBC Distribution Width 12.6 % (11.5-14.5); Red Blood Cell (RBC) Count 3.96 mill/uL (4.70-6.10); White Blood Cell (WBC) Count 7.9 10x3/uL (4.8-10.8)
[2022-01-21] MEDS ORDERED: FLU VACC QS2022-23(6MOS UP)/PF 60 MCG/0.5 ML SYRINGE IM ONE (09:00)
[2022-01-21] MEDS: Heparin 5,000 UNITS/ML VIAL SC SCH ×2 (09:23→21:16)
[2022-01-21] MEDS: Sacubitril 49 MG/Valsartan 51 MG TABLET PO SCH (09:23)
[2022-01-21] MEDS: Aspirin 81 mg Enteric Coated Tablet PO SCH (09:24)
[2022-01-21] MEDS: NIFEdipine XL 30 MG TAB PO SCH ×2 (09:24→21:16)
[2022-01-21] MEDS: Clopidogrel Bisulfate 75 MG TAB PO SCH (09:24)
[2022-01-21] MEDS: Carvedilol 25 MG TAB PO SCH ×2 (09:25→16:55)
[2022-01-21 11:45] LABS: Glucose 359 mg/dL (70-105)
[2022-01-21 15:04] LABS: Factor VIII Test 359.1 % ACTIVE (56-157); Protein C Activity 148 % (78-152)
[2022-01-21 15:07] LABS: HEX PHOS LA Tube 1 39.9 SEC
[2022-01-21] MEDS ORDERED: Metoprolol Tartrate 5 MG/5 ML VIAL IVP PRN (16:00)
[2022-01-21] MEDS: Acetaminophen 325 MG TAB PO PRN (16:55)
[2022-01-21 17:39] LABS: Glucose 232 mg/dL (70-105)
[2022-01-21 18:20] LABS: Potassium 3.2 mmol/L (3.5-5.1)
[2022-01-21] MEDS: HumaLOG 300 UNITS/3 ML VIAL SC SCH (18:26)
[2022-01-21] MEDS ORDERED: Insulin Glargine 30 UNITS/0.3 ML VIAL SC SCH (21:00)
[2022-01-21] MEDS: Tamsulosin HCl 0.4 MG CAP PO SCH (21:16)
[2022-01-21] MEDS: Atorvastatin Calcium 40 MG TAB PO SCH (21:16)
[2022-01-21 22:15] LABS: Glucose 355 mg/dL (70-105)
[2022-01-22 05:43] LABS: #Basophils 0.1 thou/uL (0.0-0.2); #Eosinphils 0.2 thou/uL (0.0-0.7); #Lymphocytes 2.5 thou/uL (1.20-3.40); #Monocytes 0.6 thou/uL (0.11-0.59); %Basophils 0.9 % (0.0-1.0); %Eosinophils 3.4 % (0.0-10.0); %Lymphocytes 33.5 % (21.0-51.0); %Monocytes 7.7 % (0.0-10.0); %Neutrophils 54.5 % (42.0-75.0); Hemoglobin 12.3 g/dL (14.0-18.0); Mean Corpuscular HGB CONC 36.7 g/dL (32.0-36.0); Mean Corpuscular Hemoglobin 30.9 pg (27.0-31.0); Mean Corpuscular Volume 84.3 fl (78.0-98.0); Mean Platelet Volume 9.1 fL (7.4-10.4); Platelet Count 176 10x3/uL (130-400); RBC Distribution Width 12.4 % (11.5-14.5); Red Blood Cell (RBC) Count 3.98 mill/uL (4.70-6.10); White Blood Cell (WBC) Count 7.3 10x3/uL (4.8-10.8)
[2022-01-22 05:57] LABS: Anion Gap 12 mmol/L (10-20); BUN (Urea Nitrogen) 25 mg/dL (8.9-20.6); Calc. Creatinine Clearance 64 mL/min (70-130); Calcium 7.9 mg/dL (7.8-10.44); Carbon Dioxide 21 mmol/L (22-29); Chloride 104 mmol/L (98-107); Estimated GFR 38; Glucose 353 mg/dL (70-105); Potassium 3.2 mmol/L (3.5-5.1); Sodium 134 mmol/L (136-145)
[2022-01-22] MEDS: Sodium Chloride 0.9% 1,000 ML IV SCH ×2 (06:27→21:47)
[2022-01-22 08:02] LABS: Glucose 369 mg/dL (70-105)
[2022-01-22] MEDS ORDERED: Potassium Chloride 20 MEQ TAB PO SCH (08:15)
[2022-01-22] MEDS ORDERED: Insulin Glargine 30 UNITS/0.3 ML VIAL SC SCH (09:00)
[2022-01-22] MEDS: Clopidogrel Bisulfate 75 MG TAB PO SCH (11:07)
[2022-01-22] MEDS: Carvedilol 25 MG TAB PO SCH ×2 (11:07→17:58)
[2022-01-22] MEDS: NIFEdipine XL 30 MG TAB PO SCH ×2 (11:08→21:49)
[2022-01-22] MEDS: Aspirin 81 mg Enteric Coated Tablet PO SCH (11:08)
[2022-01-22] MEDS: Acetaminophen 325 MG TAB PO PRN (11:11)
[2022-01-22] MEDS: HumaLOG 300 UNITS/3 ML VIAL SC SCH ×3 (11:12→17:58)
[2022-01-22] MEDS: Heparin 5,000 UNITS/ML VIAL SC SCH ×2 (11:14→21:49)
[2022-01-22 11:55] LABS: Glucose 585 mg/dL (70-105)
[2022-01-22] MEDS ORDERED: Insulin Regular 300 UNITS/3 ML VIAL IVP SCH (12:15)
[2022-01-22] MEDS: HumaLOG 300 UNITS/3 ML VIAL SC PRN ×3 (12:50→21:48)
[2022-01-22 17:24] LABS: Glucose 385 mg/dL (70-105)
[2022-01-22 20:05] LABS: Creatinine, Urine 31.36 mg/dL (63-166)
[2022-01-22 21:37] LABS: Glucose 407 mg/dL (70-105)
[2022-01-22] MEDS: Insulin Glargine 30 UNITS/0.3 ML VIAL SC SCH (21:48)
[2022-01-22] MEDS: Atorvastatin Calcium 40 MG TAB PO SCH (21:49)
[2022-01-22] MEDS: Tamsulosin HCl 0.4 MG CAP PO SCH (21:50)
[2022-01-22] MEDS: Icosapent Ethyl 1 GM CAPSULE PO SCH (21:53)
[2022-01-23 06:01] LABS: #Basophils 0.1 thou/uL (0.0-0.2); #Eosinphils 0.2 thou/uL (0.0-0.7); #Lymphocytes 1.8 thou/uL (1.20-3.40); #Monocytes 0.6 thou/uL (0.11-0.59); #Neutrophils 4.3 thou/uL (1.40-6.50); %Basophils 0.9 % (0.0-1.0); %Eosinophils 3.2 % (0.0-10.0); %Monocytes 8.6 % (0.0-10.0); %Neutrophils 61.4 % (42.0-75.0); Hemoglobin 11.7 g/dL (14.0-18.0); Mean Corpuscular Hemoglobin 30.6 pg (27.0-31.0); Mean Corpuscular Volume 85.1 fl (78.0-98.0); Mean Platelet Volume 9.1 fL (7.4-10.4); Platelet Count 195 10x3/uL (130-400); RBC Distribution Width 12.4 % (11.5-14.5)
[2022-01-23 06:21] LABS: Anion Gap 13 mmol/L (10-20); BUN (Urea Nitrogen) 29 mg/dL (8.9-20.6); Calc. Creatinine Clearance 63 mL/min (70-130); Calcium 7.9 mg/dL (7.8-10.44); Carbon Dioxide 19 mmol/L (22-29); Chloride 106 mmol/L (98-107); Estimated GFR 38; Glucose 324 mg/dL (70-105); Potassium 3.5 mmol/L (3.5-5.1); Sodium 134 mmol/L (136-145)
[2022-01-23] MEDS: Insulin Glargine 30 UNITS/0.3 ML VIAL SC SCH ×2 (08:30→21:37)
[2022-01-23] MEDS: HumaLOG 300 UNITS/3 ML VIAL SC SCH ×3 (08:30→18:09)
[2022-01-23] MEDS: NIFEdipine XL 30 MG TAB PO SCH ×2 (08:30→21:36)
[2022-01-23] MEDS: Aspirin 81 mg Enteric Coated Tablet PO SCH (08:31)
[2022-01-23] MEDS: Carvedilol 25 MG TAB PO SCH ×2 (08:31→18:08)
[2022-01-23] MEDS: Clopidogrel Bisulfate 75 MG TAB PO SCH (08:31)
[2022-01-23] MEDS: Heparin 5,000 UNITS/ML VIAL SC SCH ×2 (08:32→21:40)
[2022-01-23] MEDS: Sodium Chloride 0.9% 1,000 ML IV SCH ×2 (08:32→19:30)
[2022-01-23] MEDS: Icosapent Ethyl 1 GM CAPSULE PO SCH ×2 (08:35→21:36)
[2022-01-23 12:27] LABS: Glucose 284 mg/dL (70-105)
[2022-01-23] MEDS: HumaLOG 300 UNITS/3 ML VIAL SC PRN ×2 (12:46→21:38)
[2022-01-23 21:03] LABS: Glucose 309 mg/dL (70-105)
[2022-01-23] MEDS: Atorvastatin Calcium 40 MG TAB PO SCH (21:36)
[2022-01-23] MEDS: Tamsulosin HCl 0.4 MG CAP PO SCH (21:36)
[2022-01-24 05:25] LABS: #Eosinphils 0.2 thou/uL (0.0-0.7); #Lymphocytes 2.3 thou/uL (1.20-3.40); #Monocytes 0.7 thou/uL (0.11-0.59); #Neutrophils 4.2 thou/uL (1.40-6.50); %Basophils 0.6 % (0.0-1.0); %Eosinophils 2.7 % (0.0-10.0); %Monocytes 9.3 % (0.0-10.0); %Neutrophils 56.4 % (42.0-75.0); Hemoglobin 11.3 g/dL (14.0-18.0); Mean Corpuscular HGB CONC 34.9 g/dL (32.0-36.0); Mean Corpuscular Hemoglobin 29.9 pg (27.0-31.0); Mean Corpuscular Volume 85.8 fl (78.0-98.0); Platelet Count 173 10x3/uL (130-400); RBC Distribution Width 12.6 % (11.5-14.5); Red Blood Cell (RBC) Count 3.77 mill/uL (4.70-6.10); White Blood Cell (WBC) Count 7.4 10x3/uL (4.8-10.8)
[2022-01-24 05:44] LABS: Anion Gap 12 mmol/L (10-20); BUN (Urea Nitrogen) 25 mg/dL (8.9-20.6); Calc. Creatinine Clearance 69 mL/min (70-130); Carbon Dioxide 18 mmol/L (22-29); Chloride 108 mmol/L (98-107); Potassium 3.1 mmol/L (3.5-5.1); Sodium 135 mmol/L (136-145)
[2022-01-24 05:45] LABS: Calcium 7.9 mg/dL (7.8-10.44); Estimated GFR 42; Glucose 178 mg/dL (70-105)
[2022-01-24] MEDS: HumaLOG 300 UNITS/3 ML VIAL SC PRN ×2 (06:15→12:10)
[2022-01-24] MEDS ORDERED: Potassium Chloride 20 MEQ TAB PO SCH ×2 (07:57→14:00)
[2022-01-24] MEDS: Insulin Glargine 30 UNITS/0.3 ML VIAL SC SCH ×2 (08:56→22:26)
[2022-01-24] MEDS: NIFEdipine XL 30 MG TAB PO SCH ×2 (08:57→22:26)
[2022-01-24] MEDS: Icosapent Ethyl 1 GM CAPSULE PO SCH ×2 (08:57→22:26)
[2022-01-24] MEDS: HumaLOG 300 UNITS/3 ML VIAL SC SCH ×3 (08:57→17:41)
[2022-01-24] MEDS: Aspirin 81 mg Enteric Coated Tablet PO SCH (08:58)
[2022-01-24] MEDS: Carvedilol 25 MG TAB PO SCH ×2 (08:58→17:40)
[2022-01-24] MEDS: Heparin 5,000 UNITS/ML VIAL SC SCH ×2 (08:59→22:26)
[2022-01-24] MEDS: Clopidogrel Bisulfate 75 MG TAB PO SCH (08:59)
[2022-01-24] MEDS ORDERED: Ergocalciferol 1.25 MG(50,000 UNITS) CAP PO SCH (09:00)
[2022-01-24] MEDS ORDERED: Senokot 8.6 MG TAB PO PRN (09:09)
[2022-01-24] MEDS ORDERED: Bisacodyl 5 MG TAB PO PRN (09:09)
[2022-01-24 10:03] LABS: Glucose 144 mg/dL (70-105)
[2022-01-24] MEDS: Sodium Chloride 0.9% 1,000 ML IV SCH (10:58)
[2022-01-24 11:51] LABS: Glucose 186 mg/dL (70-105)
[2022-01-24 17:40] LABS: Glucose 197 mg/dL (70-105)
[2022-01-24] MEDS: Acetaminophen 325 MG TAB PO PRN (17:46)
[2022-01-24 22:06] LABS: Glucose 188 mg/dL (70-105)
[2022-01-24] MEDS: Atorvastatin Calcium 40 MG TAB PO SCH (22:26)
[2022-01-24] MEDS: Tamsulosin HCl 0.4 MG CAP PO SCH (22:27)
[2022-01-25 05:58] LABS: Anion Gap 12 mmol/L (10-20); BUN (Urea Nitrogen) 22 mg/dL (8.9-20.6); Calc. Creatinine Clearance 71 mL/min (70-130); Calcium 8.2 mg/dL (7.8-10.44); Carbon Dioxide 20 mmol/L (22-29); Chloride 109 mmol/L (98-107); Estimated GFR 44; Glucose 149 mg/dL (70-105); Potassium 3.3 mmol/L (3.5-5.1); Sodium 138 mmol/L (136-145)
[2022-01-25 07:36] LABS: Glucose 147 mg/dL (70-105)
[2022-01-25] MEDS: Aspirin 81 mg Enteric Coated Tablet PO SCH (08:22)
[2022-01-25] MEDS: HumaLOG 300 UNITS/3 ML VIAL SC SCH ×2 (08:22→12:15)
[2022-01-25] MEDS: Insulin Glargine 30 UNITS/0.3 ML VIAL SC SCH (08:22)
[2022-01-25] MEDS: Icosapent Ethyl 1 GM CAPSULE PO SCH (08:23)
[2022-01-25] MEDS: Heparin 5,000 UNITS/ML VIAL SC SCH (08:23)
[2022-01-25] MEDS: Clopidogrel Bisulfate 75 MG TAB PO SCH (08:23)
[2022-01-25] MEDS: Carvedilol 25 MG TAB PO SCH (08:23)
[2022-01-25] MEDS: NIFEdipine XL 30 MG TAB PO SCH (08:23)
[2022-01-25] MEDS ORDERED: Potassium Chloride 20 MEQ TAB PO SCH (08:30)
[2022-01-25] MEDS: Acetaminophen 325 MG TAB PO PRN (10:06)
[2022-01-25 12:10] VITALS: TEMP 98.1
[2022-01-25 12:27] LABS: Glucose 198 mg/dL (70-105)
[2022-01-25 15:16] VITALS: BP 153/92
[2022-01-25 16:02] LABS: ANA Symphony (Qualitative) Negative (Negative); ANA Symphony (Quantitative) 0.2 Ratio (< 0.7 Negative); dsDNA IgG Antibody 0.6 IU/mL (<10 Negative)
[2022-01-25 17:10] LABS: Cardiolipin IgA Ab 6.2 APL-U/mL (<14 Negative); Cardiolipin IgG Ab 0.9 GPL-U/mL (<10 Negative); Cardiolipin IgM Ab Less than 0.8 MPL-U/mL (<10 Negative); EliA APS New Method **** NEW METHOD ****
== END 2022-01-25 13:52 | disposition home or self-care (01) | DRG 69 ==
LOC: ERS 18:45 → OBSVTOIN 22:13 → NEURO 22:13
PROVIDERS: ADMIT Internal Medicine; ATTEND Internal Medicine
DX: G45.9 Transient cerebral ischemic attack, unspecified (principal); Z20.822 Contact with and (suspected) exposure to COVID-19; E87.1 Hypo-osmolality and hyponatremia; I24.8 Other forms of acute ischemic heart disease; N17.9 Acute kidney failure, unspecified; I50.22 Chronic systolic (congestive) heart failure; I13.0 Hypertensive heart and chronic kidney disease with heart failure and stage 1 through stage 4 chronic kidney disease, or unspecified chronic kidney disease; E87.20 Acidosis, unspecified; N25.81 Secondary hyperparathyroidism of renal origin; E87.6 Hypokalemia; I25.10 Atherosclerotic heart disease of native coronary artery without angina pectoris; E11.65 Type 2 diabetes mellitus with hyperglycemia; E78.00 Pure hypercholesterolemia, unspecified; E11.22 Type 2 diabetes mellitus with diabetic chronic kidney disease; I25.5 Ischemic cardiomyopathy; N18.30 Chronic kidney disease, stage 3 unspecified; D63.1 Anemia in chronic kidney disease; E66.9 Obesity, unspecified; E55.9 Vitamin D deficiency, unspecified; Z28.21 Immunization not carried out because of patient refusal; I25.2 Old myocardial infarction; Z95.810 Presence of automatic (implantable) cardiac defibrillator; Z87.891 Personal history of nicotine dependence; Z91.199 Patient's noncompliance with other medical treatment and regimen due to unspecified reason; Z91.040 Latex allergy status; Z79.899 Other long term (current) drug therapy; Z79.82 Long term (current) use of aspirin; Z79.4 Long term (current) use of insulin; Z79.84 Long term (current) use of oral hypoglycemic drugs; Z82.49 Family history of ischemic heart disease and other diseases of the circulatory system; Z68.30 Body mass index [BMI] 30.0-30.9, adult; Z79.1 Long term (current) use of non-steroidal anti-inflammatories (NSAID)
CPT/HCPCS: 36415; 36416; 70450; 70551; 71045; 76770; 80048; 80053; 80061; 82306; 82553; 82570; 82947; 83036; 83090; 83735; 83880; 83970; 84156; 84443; 84484; 85025; 85240; 85300; 85303; 85305; 85307; 85379; 85598; 85610; 85730; 86038; 86147; 86225; 93005; 93880; 96374; J1644; J1815; J2405; J3475; J7050; U0002

== ENCOUNTER 2023-07-18 22:50 | Inpatient (IN) | payer BC ==
[2023-07-18] MEDS ORDERED: levETIRAcetam 500 MG (5 mL) VIAL ONE (23:31)
[2023-07-18 23:32] LABS: #Basophils 0.05 10x3/uL (0.0-0.2); %Basophils 0.7 % (0.0-1.0); %Eosinophils 6.3 % (0.0-10.0); %Lymphocytes 30.1 % (21.0-51.0); %Monocytes 11.1 % (0.0-10.0); %Neutrophils 51.5 % (42.0-75.0); Hematocrit 29.8 % (42.0-52.0); Hemoglobin 10.1 g/dL (14.0-18.0); Mean Corpuscular HGB CONC 33.9 g/dL (32.0-36.0); Mean Corpuscular Hemoglobin 29.7 pg (27.0-31.0); Mean Corpuscular Volume 87.6 fL (78.0-98.0); Mean Platelet Volume 10.5 fL (7.4-10.4); Platelet Count 197 10x3/uL (130-400); RBC Distribution Width 14.7 % (11.5-14.5)
[2023-07-18] MEDS ORDERED: niCARdipine 25 MG/10 ML SDV ONE (23:32)
[2023-07-18 23:46] LABS: Prothrombin Time 13.4 sec (12.0-14.7)
[2023-07-18 23:47] LABS: PTT 32.4 sec (22.9-36.1)
[2023-07-18] MEDS ORDERED: LORazepam 2 MG/ML SYR.(CARPUJECT) ONE (23:49)
[2023-07-18 23:55] LABS: ALT (SGPT) 32 U/L (8-55); AST (SGOT) 23 U/L (5-34); Albumin 3.6 g/dL (3.5-5.0); Alkaline Phosphatase 79 U/L (40-110); Anion Gap 21 mmol/L (10-20); BUN (Urea Nitrogen) 52 mg/dL (8.9-20.6); Bilirubin, Total 0.6 mg/dL (0.2-1.2); Calc. Creatinine Clearance 0 mL/min (70-130); Calcium 9.7 mg/dL (7.8-10.44); Carbon Dioxide 22 mmol/L (22-29); Chloride 98 mmol/L (98-107); Estimated GFR 8; Glucose 184 mg/dL (70-105); Magnesium 1.7 mg/dL (1.6-2.6); Potassium 4.8 mmol/L (3.5-5.1); Protein, Total 7.6 g/dL (6.0-8.3); Sodium 136 mmol/L (136-145)
[2023-07-18 23:57] LABS: Acetaminophen Less than 10 mcg/mL (10.0-30.0); Alcohol Less than 10.0 mg/dL (Less than 10); Salicylate Less than 8.0 mg/dL (15.0-30.0); Troponin I 0.025 ng/mL (< 0.028)
[2023-07-19] MEDS ORDERED: Ondansetron PF 4 MG/2 ML Vial IVP PRN (01:26)
[2023-07-19] MEDS ORDERED: Lorazepam 2 MG/ML VIAL SLOW IVP PRN (01:29)
[2023-07-19] MEDS ORDERED: hydrALAZINE 20 MG/ML VIAL SLOW IVP PRN (01:35)
[2023-07-19] MEDS ORDERED: Dextrose 5% in Water 1,000 ML IV PRN (02:19)
[2023-07-19] MEDS ORDERED: Dextrose 50% Abboject 50 ML SYRINGE SLOW IVP PRN (02:19)
[2023-07-19] MEDS ORDERED: Glucagon 1 MG/ML KIT IM PRN (02:19)
[2023-07-19] MEDS ORDERED: HumaLOG 300 UNITS/3 ML VIAL SC PRN (02:19)
[2023-07-19 02:51] VITALS: BMI 30.2
[2023-07-19] MEDS ORDERED: Labetalol HCl 100 MG/20 ML VIAL SLOW IVP PRN (03:04)
[2023-07-19 04:32] LABS: #Basophils 0.06 10x3/uL (0.0-0.2); %Basophils 0.8 % (0.0-1.0); %Eosinophils 6.5 % (0.0-10.0); %Lymphocytes 28.5 % (21.0-51.0); %Monocytes 11.8 % (0.0-10.0); %Neutrophils 52.1 % (42.0-75.0); Hemoglobin 9.4 g/dL (14.0-18.0); Mean Corpuscular HGB CONC 34.8 g/dL (32.0-36.0); Mean Corpuscular Hemoglobin 30.5 pg (27.0-31.0); Mean Corpuscular Volume 87.7 fL (78.0-98.0); Mean Platelet Volume 10.3 fL (7.4-10.4); Platelet Count 204 10x3/uL (130-400); RBC Distribution Width 14.9 % (11.5-14.5); Red Blood Cell (RBC) Count 3.08 mill/uL (4.70-6.10)
[2023-07-19 04:58] LABS: ALT (SGPT) 33 U/L (8-55); AST (SGOT) 20 U/L (5-34); Albumin 3.3 g/dL (3.5-5.0); Alkaline Phosphatase 75 U/L (40-110); Anion Gap 21 mmol/L (10-20); BUN (Urea Nitrogen) 52 mg/dL (8.9-20.6); Bilirubin, Total 0.6 mg/dL (0.2-1.2); Calc. Creatinine Clearance 17 mL/min (70-130); Calcium 9.3 mg/dL (7.8-10.44); Carbon Dioxide 20 mmol/L (22-29); Chloride 99 mmol/L (98-107); Estimated GFR 8; Globulin 4.5 g/dL (2.4-3.5); Glucose 141 mg/dL (70-105); Potassium 4.2 mmol/L (3.5-5.1); Protein, Total 7.8 g/dL (6.0-8.3); Sodium 136 mmol/L (136-145)
[2023-07-19] MEDS ORDERED: Polyethylene Glycol 3350 17 GM Packet PO PRN (06:34)
[2023-07-19] MEDS ORDERED: Nitroglycerin 0.4 MG TAB (25 Tab Bottle) SL PRN (06:34)
[2023-07-19] MEDS ORDERED: Ondansetron ODT 4 MG TAB PO PRN (06:34)
[2023-07-19] MEDS ORDERED: Acetaminophen 500 MG TAB PO PRN (06:34)
[2023-07-19] MEDS ORDERED: Melatonin 3 MG TAB PO PRN (06:34)
[2023-07-19 07:42] LABS: HBSAB Concentration 554.56 mIU/mL; HBsAg Index 0.42 S/CO (0-0.99); Hep B Core Total Ab NONREACTIVE (NonReactive); Hep B Core Total Index 0.15 S/CO (0-0.79); Hep B Surf AB REACTIVE (NonReactive); Hep B Surf Ag NONREACTIVE S/CO (NonReactive); Hep C IgG Ab NONREACTIVE S/CO (NonReactive); Hep C Index 0.38 S/CO (0-0.79)
[2023-07-19] MEDS: hydrALAZINE 25 MG TAB PO SCH (09:21)
[2023-07-19] MEDS: Calcitriol 0.25 MCG CAP PO SCH (09:21)
[2023-07-19] MEDS: Spironolactone 25 MG TAB PO SCH (09:21)
[2023-07-19] MEDS: NIFEdipine XL 30 MG ER.TAB PO SCH (09:21)
[2023-07-19] MEDS: Aspirin Chewable 81 MG TAB PO SCH (09:21)
[2023-07-19] MEDS: Isosorbide Mononitrate 60 MG ER.TAB PO SCH (09:21)
[2023-07-19] MEDS: Gabapentin 100 MG CAP PO SCH (09:21)
[2023-07-19] MEDS: Acetaminophen 325 MG TAB PO PRN (09:22)
[2023-07-19] MEDS: Losartan 25 MG TAB PO SCH (09:22)
[2023-07-19] MEDS: Saccharomyces boulardii 250 MG CAP PO SCH (09:22)
[2023-07-19] MEDS: levETIRAcetam 500 MG (5 mL) VIAL SLOW IVP SCH (09:22)
[2023-07-19] MEDS: Sevelamer Carbonate 800 MG TAB PO SCH (09:22)
[2023-07-19] MEDS: Icosapent Ethyl 1 GM CAPSULE PO SCH (09:22)
[2023-07-19] MEDS: Carvedilol 25 MG TAB PO SCH (09:22)
[2023-07-19] MEDS: Pantoprazole DR 40 MG TAB PO SCH (09:22)
[2023-07-19] MEDS: Heparin 5,000 UNITS/ML VIAL SC SCH (09:24)
[2023-07-19] MEDS: Ergocalciferol 1.25 MG(50,000 UNITS) CAP PO SCH (09:30)
[2023-07-19] MEDS: Insulin Glargine 30 UNITS/0.3 ML VIAL SC SCH ×2 (09:31→21:36)
[2023-07-19] MEDS ORDERED: Heparin 10,000 UNITS/ 10 ML VIAL ONE (11:28)
[2023-07-19] MEDS ORDERED: Epoetin (ESRD) 10,000 UNITS/ML VIAL IVP SCH (12:00)
[2023-07-19] MEDS: HumaLOG 300 UNITS/3 ML VIAL SC PRN (12:55)
[2023-07-19] MEDS: EPOETIN ALFA-EPBX (ESRD) 10,000 UNITS/ML VIAL IVP SCH (12:55)
[2023-07-19 17:12] VITALS: BMI 30.2
[2023-07-19] MEDS: Atorvastatin Calcium 40 MG TAB PO SCH (21:37)
[2023-07-19] MEDS: Tamsulosin HCl 0.4 MG CAP PO SCH (21:37)
[2023-07-19] MEDS: AMOXicillin 250 MG CAP PO SCH (22:12)
[2023-07-20 03:43] LABS: #Basophils 0.06 10x3/uL (0.0-0.2); %Basophils 0.8 % (0.0-1.0); %Eosinophils 5.8 % (0.0-10.0); %Lymphocytes 26.9 % (21.0-51.0); %Monocytes 11.9 % (0.0-10.0); %Neutrophils 54.3 % (42.0-75.0); Hematocrit 29.1 % (42.0-52.0); Hemoglobin 9.8 g/dL (14.0-18.0); Mean Corpuscular HGB CONC 33.7 g/dL (32.0-36.0); Mean Corpuscular Hemoglobin 28.9 pg (27.0-31.0); Mean Corpuscular Volume 85.8 fL (78.0-98.0); Mean Platelet Volume 10.2 fL (7.4-10.4); Platelet Count 211 10x3/uL (130-400); RBC Distribution Width 14.7 % (11.5-14.5); Red Blood Cell (RBC) Count 3.39 mill/uL (4.70-6.10)
[2023-07-20 04:03] LABS: ALT (SGPT) 30 U/L (8-55); AST (SGOT) 22 U/L (5-34); Albumin 3.3 g/dL (3.5-5.0); Alkaline Phosphatase 65 U/L (40-110); Anion Gap 16 mmol/L (10-20); BUN (Urea Nitrogen) 28 mg/dL (8.9-20.6); Bilirubin, Total 0.6 mg/dL (0.2-1.2); Calc. Creatinine Clearance 24 mL/min (70-130); Calcium 9.5 mg/dL (7.8-10.44); Carbon Dioxide 26 mmol/L (22-29); Chloride 99 mmol/L (98-107); Estimated GFR 12; Globulin 4.4 g/dL (2.4-3.5); Glucose 152 mg/dL (70-105); Protein, Total 7.7 g/dL (6.0-8.3); Sodium 137 mmol/L (136-145)
[2023-07-20 04:37] VITALS: TEMP 98.4
[2023-07-20] MEDS: Multivitamin W/ Minerals 1 TAB PO SCH (08:30)
[2023-07-20] MEDS: levETIRAcetam 500 MG TAB PO SCH (08:31)
[2023-07-20 09:42] VITALS: BP 102/65
== END 2023-07-20 12:30 | disposition home or self-care (01) | DRG 56 ==
LOC: ERS 22:50 → 2SE 07-19 02:32
PROVIDERS: ADMIT Family Medicine; ATTEND Family Medicine
PROC: 4A00X4Z Measurement of Central Nervous Electrical Activity, External Approach (ICD-10-PCS; principal; 2023-07-19)
DX: I69.398 Other sequelae of cerebral infarction (principal); G93.41 Metabolic encephalopathy; N18.6 End stage renal disease; I16.1 Hypertensive emergency; I13.2 Hypertensive heart and chronic kidney disease with heart failure and with stage 5 chronic kidney disease, or end stage renal disease; I50.22 Chronic systolic (congestive) heart failure; R56.9 Unspecified convulsions; I25.5 Ischemic cardiomyopathy; D63.1 Anemia in chronic kidney disease; E78.5 Hyperlipidemia, unspecified; I25.10 Atherosclerotic heart disease of native coronary artery without angina pectoris; E11.22 Type 2 diabetes mellitus with diabetic chronic kidney disease; Z88.8 Allergy status to other drugs, medicaments and biological substances; Z98.890 Other specified postprocedural states; Z99.2 Dependence on renal dialysis
CPT/HCPCS: 36415; 36416; 70450; 71045; 80053; 80307; 83605; 83735; 84484; 85025; 85610; 85730; 86704; 86706; 86803; 87340; 90935; 93005; 95700; 95711; 95819; 96374; G0257; J1644; J1815; J1953; J2060; Q5105

== ENCOUNTER 2024-02-24 17:37 | Emergency (ER) | payer BC, MEDICARE ==
[2024-02-24 18:04] LABS: #Basophils 0.09 10x3/uL (0.0-0.2); %Basophils 1.4 % (0.0-1.0); %Eosinophils 2.7 % (0.0-10.0); %Lymphocytes 26.9 % (21.0-51.0); %Monocytes 10.9 % (0.0-10.0); %Neutrophils 57.9 % (42.0-75.0); Hematocrit 33.9 % (42.0-52.0); Hemoglobin 10.7 g/dL (14.0-18.0); Mean Corpuscular HGB CONC 31.6 g/dL (32.0-36.0); Mean Corpuscular Hemoglobin 30.8 pg (27.0-31.0); Mean Corpuscular Volume 97.7 fL (78.0-98.0); Mean Platelet Volume 9.8 fL (7.4-10.4); Platelet Count 220 10x3/uL (130-400); RBC Distribution Width 17.9 % (11.5-14.5); Red Blood Cell (RBC) Count 3.47 mill/uL (4.70-6.10)
[2024-02-24 18:23] LABS: ALT (SGPT) 9 U/L (8-55); AST (SGOT) 15 U/L (5-34); Albumin 3.4 g/dL (3.5-5.0); Alkaline Phosphatase 115 U/L (40-110); Anion Gap 19 mmol/L (10-20); BUN (Urea Nitrogen) 41 mg/dL (8.9-20.6); Bilirubin, Total 0.9 mg/dL (0.2-1.2); Calc. Creatinine Clearance 0 mL/min (70-130); Calcium 9.4 mg/dL (7.8-10.44); Carbon Dioxide 20 mmol/L (22-29); Chloride 93 mmol/L (98-107); Estimated GFR 8; Globulin 4.7 g/dL (2.4-3.5); Glucose 140 mg/dL (70-105); Protein, Total 8.1 g/dL (6.0-8.3); Sodium 127 mmol/L (136-145)
[2024-02-24 18:24] LABS: Troponin I Less than 0.010 ng/mL (< 0.028)
[2024-02-24] MEDS ORDERED: HYDROcodone/Acetaminophen 5/325 mg Tablet ONE (19:18)
[2024-02-24] MEDS ORDERED: Furosemide 40 MG TAB ONE (19:18)
[2024-02-24] MEDS ORDERED: Nitroglycerin 0.4 MG TAB 1 EACH ONE (20:19)
== END 2024-02-24 21:47 | disposition home or self-care (01) ==
LOC: ERS 17:37
DX: S80.02XA Contusion of left knee, initial encounter (principal); E86.9 Volume depletion, unspecified; R55 Syncope and collapse; I12.0 Hypertensive chronic kidney disease with stage 5 chronic kidney disease or end stage renal disease; N18.6 End stage renal disease; E11.22 Type 2 diabetes mellitus with diabetic chronic kidney disease; Z95.0 Presence of cardiac pacemaker; Z99.2 Dependence on renal dialysis; E78.00 Pure hypercholesterolemia, unspecified; Z87.891 Personal history of nicotine dependence; Z79.4 Long term (current) use of insulin; Z79.899 Other long term (current) drug therapy; W19.XXXA Unspecified fall, initial encounter
CPT/HCPCS: 36415; 71045; 80053; 83880; 84484; 85025; 93005; 94760

== ENCOUNTER 2024-02-26 23:06 | Inpatient (IN) | payer MEDICARE ==
[~2024-02-26 23:06] MED LIST changes: -Iopamidol-370 76% 500 ML 1 ML ONE; +Iopamidol-370 76% 500 ML MDV (1 ML CHARGE) ONE
[2024-02-26 23:25] LABS: #Basophils 0.07 10x3/uL (0.0-0.2); %Basophils 0.9 % (0.0-1.0); %Eosinophils 1.5 % (0.0-10.0); %Monocytes 11.8 % (0.0-10.0); %Neutrophils 70.5 % (42.0-75.0); Hematocrit 32.3 % (42.0-52.0); Hemoglobin 10.7 g/dL (14.0-18.0); Mean Corpuscular HGB CONC 33.1 g/dL (32.0-36.0); Mean Corpuscular Hemoglobin 30.6 pg (27.0-31.0); Mean Corpuscular Volume 92.3 fL (78.0-98.0); Mean Platelet Volume 9.5 fL (7.4-10.4); Platelet Count 221 10x3/uL (130-400); RBC Distribution Width 17.4 % (11.5-14.5)
[2024-02-26] MEDS ORDERED: Ipratropium/Albuterol 3 ML NEB ONE (23:37)
[2024-02-26 23:40] LABS: ALT (SGPT) 9 U/L (8-55); AST (SGOT) 14 U/L (5-34); Albumin 3.4 g/dL (3.5-5.0); Alkaline Phosphatase 124 U/L (40-110); Anion Gap 20 mmol/L (10-20); BUN (Urea Nitrogen) 35 mg/dL (8.9-20.6); Bilirubin, Total 0.8 mg/dL (0.2-1.2); Calc. Creatinine Clearance 0 mL/min (70-130); Carbon Dioxide 27 mmol/L (22-29); Chloride 91 mmol/L (98-107); Estimated GFR 9; Globulin 4.6 g/dL (2.4-3.5); Glucose 127 mg/dL (70-105); Potassium 4.5 mmol/L (3.5-5.1); Sodium 133 mmol/L (136-145)
[2024-02-26 23:47] LABS: Troponin I 0.034 ng/mL (< 0.028)
[2024-02-27 00:42] LABS: Lipase 14 U/L (8-78)
[2024-02-27 00:43] LABS: CRP,High Sensitivity (Inhouse) 1.56 mg/dL (< or = 0.5)
[2024-02-27 01:16] LABS: Actual Bicarbonate (HCO3v) 25.5 mEq/L (22-28); Base Excess 0.8 mEq/L (-2.0 to +3.0); Calcium, Ionized (venous) 1.05 mmol/L (1.16-1.32); Chloride (VBG) 91 mmol/L (98-106); Hematocrit-VBG 32 % (42.0-52.0); Hemoglobin (Hb) 10.8 g/dL (13.2-17.3); Potassium (VBG) 4.18 mmol/L (3.70-5.30); Sodium 129 mmol/L (133-146); pH (venous) 7.414 (7.32-7.43)
[2024-02-27 01:35] LABS: Bacteria/HPF None Seen HPF (None Seen); Bilirubin Negative (Negative); Blood, Urine 1+ (Negative); CAUTI Indications for Culture Pelvic or flank pain; Clarity Clear (Clear); Glucose, Urine (Dipstick) 200 mg/dL (Negative); Ketone, Urine Negative (Negative); Leukocyte Negative Leu/uL (Negative); Nitrite Negative (Negative); Protein, Urine (Dipstick) 600 mg/dL (Neg-Trace); Specific Gravity, Urine 1.015 (1.002-1.036); Squamous Epithelial 0-3 HPF (0-3); Urobilinogen Normal mg/dL (Less than 2); pH, Urine 7.5 (5.0-9.0)
[2024-02-27 01:36] LABS: Sperm/HPF 4+ HPF (None Seen)
[2024-02-27 01:37] LABS: Urine Culture Reflex No No
[2024-02-27] MEDS ORDERED: Nitroglycerin 2% Ointment 1 INCH/1 GM Packet ONE (02:13)
[2024-02-27] MEDS ORDERED: Insulin Lispro 100 UNIT/ML 10 ML VIAL SC PRN ×2 (03:01)
[2024-02-27] MEDS ORDERED: Dextrose 50% Abboject 50 ML SYRINGE SLOW IVP PRN (03:01)
[2024-02-27] MEDS ORDERED: Dextrose 5% in Water 1,000 ML IV PRN (03:01)
[2024-02-27] MEDS ORDERED: Glucagon 1 MG/ML KIT IM PRN (03:01)
[2024-02-27 04:41] VITALS: BMI 27.8
[2024-02-27] MEDS: Aspirin 325 MG TAB PO SCH (04:55)
[2024-02-27] MEDS: Nitroglycerin 0.4 MG TAB (25 Tab Bottle) SL PRN (04:58)
[2024-02-27 05:06] LABS: #Basophils 0.07 10x3/uL (0.0-0.2); %Basophils 1.1 % (0.0-1.0); %Eosinophils 2.3 % (0.0-10.0); %Lymphocytes 23.2 % (21.0-51.0); %Monocytes 14.7 % (0.0-10.0); %Neutrophils 58.4 % (42.0-75.0); Hematocrit 29.8 % (42.0-52.0); Hemoglobin 9.8 g/dL (14.0-18.0); Mean Corpuscular HGB CONC 32.9 g/dL (32.0-36.0); Mean Corpuscular Hemoglobin 30.5 pg (27.0-31.0); Mean Corpuscular Volume 92.8 fL (78.0-98.0); Mean Platelet Volume 9.8 fL (7.4-10.4); Platelet Count 202 10x3/uL (130-400); RBC Distribution Width 17.2 % (11.5-14.5); Red Blood Cell (RBC) Count 3.21 mill/uL (4.70-6.10)
[2024-02-27] MEDS: Ipratropium/Albuterol 3 ML NEB EZPAP PRN (05:21)
[2024-02-27 05:22] LABS: Anion Gap 18 mmol/L (10-20); BUN (Urea Nitrogen) 39 mg/dL (8.9-20.6); Calc. Creatinine Clearance 17 mL/min (70-130); Calcium 8.8 mg/dL (7.8-10.44); Carbon Dioxide 23 mmol/L (22-29); Chloride 93 mmol/L (98-107); Estimated GFR 9; Glucose 92 mg/dL (70-105); Potassium 4.3 mmol/L (3.5-5.1); Sodium 130 mmol/L (136-145)
[2024-02-27 05:26] LABS: Troponin I 0.021 ng/mL (< 0.028)
[2024-02-27 07:53] LABS: Troponin I 0.028 ng/mL (< 0.028)
[2024-02-27] MEDS: Heparin 5,000 UNITS/ML VIAL SC SCH (08:53)
[2024-02-27] MEDS: Isosorbide Mononitrate 60 MG ER.TAB PO SCH (08:53)
[2024-02-27] MEDS: Gabapentin 100 MG CAP PO SCH (08:53)
[2024-02-27] MEDS: Acetaminophen 325 MG TAB PO PRN (08:54)
[2024-02-27] MEDS: Carvedilol 25 MG TAB PO SCH (08:54)
[2024-02-27] MEDS: NIFEdipine XL 60 MG ER.TAB PO SCH (08:54)
[2024-02-27] MEDS: Sertraline 25 MG TAB PO SCH (08:54)
[2024-02-27] MEDS: Ezetimibe 10 MG TAB PO SCH (08:55)
[2024-02-27] MEDS: hydrALAZINE 20 MG/ML VIAL SLOW IVP PRN (09:05)
[2024-02-27] MEDS: Bacitracin Zinc Ointment 30 gm TUBE TOP SCH (15:31)
[2024-02-27] MEDS: Tamsulosin HCl 0.4 MG CAP PO SCH (20:15)
[2024-02-27] MEDS: Atorvastatin Calcium 40 MG TAB PO SCH (20:15)
[2024-02-28 05:25] LABS: #Basophils 0.07 10x3/uL (0.0-0.2); %Lymphocytes 18.4 % (21.0-51.0); %Monocytes 13.9 % (0.0-10.0); %Neutrophils 63.3 % (42.0-75.0); Hematocrit 30.7 % (42.0-52.0); Hemoglobin 10.4 g/dL (14.0-18.0); Mean Corpuscular HGB CONC 33.9 g/dL (32.0-36.0); Mean Corpuscular Volume 91.6 fL (78.0-98.0); Mean Platelet Volume 9.4 fL (7.4-10.4); Platelet Count 252 10x3/uL (130-400); RBC Distribution Width 17.2 % (11.5-14.5); Red Blood Cell (RBC) Count 3.35 mill/uL (4.70-6.10)
[2024-02-28 06:00] LABS: Anion Gap 19 mmol/L (10-20); BUN (Urea Nitrogen) 42 mg/dL (8.9-20.6); Calc. Creatinine Clearance 15 mL/min (70-130); Calcium 9.3 mg/dL (7.8-10.44); Carbon Dioxide 21 mmol/L (22-29); Chloride 95 mmol/L (98-107); Estimated GFR 8; Glucose 89 mg/dL (70-105); Potassium 4.3 mmol/L (3.5-5.1); Sodium 131 mmol/L (136-145)
[2024-02-28] MEDS: Aspirin Chewable 81 MG TAB PO SCH (08:01)
[2024-02-28] MEDS: Bacitracin Zinc Ointment 30 gm TUBE TOP SCH (08:01)
[2024-02-28] MEDS ORDERED: Heparin 10,000 UNITS/ 10 ML VIAL ONE (09:43)
[2024-02-28] MEDS: Ondansetron PF 4 MG/2 ML Vial IVP PRN (13:13)
[2024-02-28] MEDS: hydrALAZINE 20 MG/ML VIAL SLOW IVP PRN (20:32)
[2024-02-28] MEDS: Senokot S 8.6-50 MG TAB PO SCH (22:04)
[2024-02-28 22:55] VITALS: BMI 27.8
[2024-02-29 04:49] LABS: #Basophils 0.06 10x3/uL (0.0-0.2); %Basophils 0.9 % (0.0-1.0); %Eosinophils 2.3 % (0.0-10.0); %Lymphocytes 18.2 % (21.0-51.0); %Monocytes 17.3 % (0.0-10.0); Hematocrit 29.1 % (42.0-52.0); Hemoglobin 9.6 g/dL (14.0-18.0); Mean Corpuscular Hemoglobin 30.9 pg (27.0-31.0); Mean Corpuscular Volume 93.6 fL (78.0-98.0); Mean Platelet Volume 9.2 fL (7.4-10.4); Platelet Count 199 10x3/uL (130-400); RBC Distribution Width 17.5 % (11.5-14.5); Red Blood Cell (RBC) Count 3.11 mill/uL (4.70-6.10)
[2024-02-29 05:14] LABS: Anion Gap 18 mmol/L (10-20); BUN (Urea Nitrogen) 28 mg/dL (8.9-20.6); Calc. Creatinine Clearance 19 mL/min (70-130); Calcium 8.7 mg/dL (7.8-10.44); Carbon Dioxide 23 mmol/L (22-29); Chloride 98 mmol/L (98-107); Estimated GFR 10; Glucose 87 mg/dL (70-105); Magnesium 1.9 mg/dL (1.6-2.6); Potassium 4.1 mmol/L (3.5-5.1); Sodium 135 mmol/L (136-145)
[2024-02-29] MEDS ORDERED: Regadenoson 0.4 MG/5 ML SYRINGE ONE (09:34)
[2024-02-29] MEDS: Carvedilol 6.25 MG TAB PO SCH (10:15)
[2024-02-29] MEDS: NIFEdipine XL 60 MG ER.TAB PO SCH (10:15)
[2024-02-29] MEDS: Lorazepam 2 MG/ML VIAL SLOW IVP SCH (10:54)
[2024-02-29 15:45] VITALS: BP 114/53; TEMP 97.8
== END 2024-02-29 17:25 | disposition home or self-care (01) | DRG 291 ==
LOC: ERS 23:06 → OBS 02-27 03:00 → OBSVTOIN 02-29 11:45
PROVIDERS: ADMIT Internal Medicine; ATTEND Internal Medicine
PROC: 5A1D70Z Performance of Urinary Filtration, Intermittent, Less than 6 Hours Per Day (ICD-10-PCS; principal; 2024-02-28)
DX: I13.2 Hypertensive heart and chronic kidney disease with heart failure and with stage 5 chronic kidney disease, or end stage renal disease (principal); I50.23 Acute on chronic systolic (congestive) heart failure; N18.6 End stage renal disease; E11.22 Type 2 diabetes mellitus with diabetic chronic kidney disease; I25.10 Atherosclerotic heart disease of native coronary artery without angina pectoris; D63.1 Anemia in chronic kidney disease; I16.0 Hypertensive urgency; E78.00 Pure hypercholesterolemia, unspecified; Z99.2 Dependence on renal dialysis; Z86.73 Personal history of transient ischemic attack (TIA), and cerebral infarction without residual deficits; Z91.040 Latex allergy status; Z95.810 Presence of automatic (implantable) cardiac defibrillator; Z95.5 Presence of coronary angioplasty implant and graft; Z87.891 Personal history of nicotine dependence; Z79.01 Long term (current) use of anticoagulants; Z79.899 Other long term (current) drug therapy; Z79.82 Long term (current) use of aspirin; Z88.8 Allergy status to other drugs, medicaments and biological substances; Z79.4 Long term (current) use of insulin; I25.2 Old myocardial infarction
CPT/HCPCS: 36415; 36416; 71045; 71275; 78452; 80048; 80053; 81001; 82805; 83605; 83690; 83735; 83880; 84484; 85025; 86141; 87428; 90935; 93005; 93017; 94640; 96372; 96374; 96375; 96376; 97139; A9502; G0257; G0378; J0360; J1644; J2060; J2405; J2785; J7620; Q9967

== ENCOUNTER 2024-10-23 18:47 | Emergency (ER) | payer BC ==
[2024-10-23] MEDS ORDERED: hydrALAZINE 20 MG/ML VIAL ONE (20:00)
[2024-10-23 20:16] LABS: #Basophils 0.03 10x3/uL (0.0-0.2); #Eosinophils 0.22 10x3/uL (0.0-0.7); #Monocytes 0.88 10x3/uL (0.11-0.59); #Neutrophils 3.60 10x3/uL (1.40-6.50); %Basophils 0.5 % (0.0-1.0); %Eosinophils 4.0 % (0.0-10.0); %Lymphocytes 13.2 % (21.0-51.0); %Monocytes 16.1 % (0.0-10.0); %Neutrophils 65.8 % (42.0-75.0); Hematocrit 21.7 % (42.0-52.0); Hemoglobin 6.7 g/dL (14.0-18.0); Mean Corpuscular Hemoglobin 27.9 pg (27.0-31.0); Mean Corpuscular Volume 90.4 fL (78.0-98.0); Platelet Count 177 10x3/uL (130-400); Red Blood Cell (RBC) Count 2.40 mill/uL (4.70-6.10); White Blood Cell (WBC) Count 5.47 10x3/uL (4.8-10.8)
== END 2024-10-23 20:50 | disposition left against medical advice (07) ==
LOC: ERS 18:47
DX: D64.9 Anemia, unspecified (principal); R06.02 Shortness of breath; I25.10 Atherosclerotic heart disease of native coronary artery without angina pectoris; I25.2 Old myocardial infarction; E78.5 Hyperlipidemia, unspecified; E11.22 Type 2 diabetes mellitus with diabetic chronic kidney disease; N18.6 End stage renal disease; I12.0 Hypertensive chronic kidney disease with stage 5 chronic kidney disease or end stage renal disease; Z99.2 Dependence on renal dialysis; Z95.0 Presence of cardiac pacemaker
CPT/HCPCS: 71045; 83880; 84484; 85025; 87426; 93005; 96374; J0360